=== PATIENT | female | born 1930 | race Caucasian/White ===

== ENCOUNTER 2019-07-10 07:55 | Emergency (ER) | payer MEDICARE, OTHER ==
[2019-07-10 08:36] LABS: #Basophils 0.1 thou/uL (0.0-0.2); #Eosinphils 0.3 thou/uL (0.0-0.7); #Lymphocytes 1.2 thou/uL (1.20-3.40); #Monocytes 0.8 thou/uL (0.11-0.59); #Neutrophils 8.5 thou/uL (1.40-6.50); %Basophils 1.1 % (0.0-1.0); %Eosinophils 2.5 % (0.0-10.0); %Lymphocytes 10.6 % (21.0-51.0); %Monocytes 7.2 % (0.0-10.0); %Neutrophils 78.7 % (42.0-75.0); Hemoglobin 13.5 g/dL (12.0-16.0); Mean Corpuscular HGB CONC 33.3 g/dL (32.0-36.0); Mean Corpuscular Hemoglobin 28.9 pg (27.0-31.0); Mean Corpuscular Volume 86.8 fL (78.0-98.0); Mean Platelet Volume 9.5 fL (7.4-10.4); Platelet Count 208 thou/uL (130-400); RBC Distribution Width 14.8 % (11.5-14.5); Red Blood Cell (RBC) Count 4.66 mill/uL (4.20-5.40); White Blood Cell (WBC) Count 10.8 thou/uL (4.8-10.8)
--- NOTE | 2019-07-10 08:51 | CT ---
CT head without contrast: Multiple axial tomograms obtained through the head without IV enhancement. INDICATIONS: Head injury. Fall. COMPARISON: None FINDINGS: Ventricles have normal size and position. Cortical atrophy and mild chronic ischemic white matter change. No evidence of intracranial mass, hemorrhage, edema, or infarct. Visualized sinuses and mastoids appear clear. Bony calvarium appears unremarkable. IMPRESSION: No acute finding
[2019-07-10 08:53] LABS: Bacteria/HPF 4+ HPF (None Seen); Bilirubin Negative (Negative); Blood, Urine Negative (Negative); Clarity Clear (Clear); Glucose, Urine (Dipstick) Normal (Negative); Leukocyte 75 Leu/uL (Negative); Nitrite Negative (Negative); Protein, Urine (Dipstick) 50 mg/dL (Neg-Trace); RBC/HPF 0-3 HPF (0-3); Squamous Epithelial 0-3 HPF (0-3); Triple Phosphate Crystal 1+ HPF (None Seen); Urobilinogen Normal mg/dL (Less than 2); WBC/HPF 21-50 HPF (0-3)
[2019-07-10 08:58] LABS: ALT (SGPT) 12 U/L (8-55); AST (SGOT) 16 U/L (5-34); Albumin 3.6 g/dL (3.4-4.8); Alkaline Phosphatase 58 U/L (40-110); Anion Gap 11 mmol/L (10-20); BUN (Urea Nitrogen) 11 mg/dL (9.8-20.1); Bilirubin, Total 0.8 mg/dL (0.2-1.2); Calc. Creatinine Clearance 0 mL/min (70-130); Calcium 9.1 mg/dL (7.8-10.44); Carbon Dioxide 31 mmol/L (23-31); Chloride 93 mmol/L (98-107); Estimated GFR-MDRD 65; Globulin 2.1 g/dL (2.4-3.5); Glucose 103 mg/dL (83-110); Potassium 3.3 mmol/L (3.5-5.1); Protein, Total 5.7 g/dL (6.0-8.3); Sodium 132 mmol/L (136-145)
[2019-07-10] MEDS ORDERED: Ondansetron ODT 4 MG TAB ONE (09:04)
== END 2019-07-10 10:03 ==
LOC: ERS 07:55
DX: S01.112A Laceration without foreign body of left eyelid and periocular area, initial encounter (principal); S01.132A Puncture wound without foreign body of left eyelid and periocular area, initial encounter; S05.12XA Contusion of eyeball and orbital tissues, left eye, initial encounter; N39.0 Urinary tract infection, site not specified; I49.9 Cardiac arrhythmia, unspecified; I48.91 Unspecified atrial fibrillation; E03.9 Hypothyroidism, unspecified; I10 Essential (primary) hypertension; G30.9 Alzheimer's disease, unspecified; F02.80 Dementia in other diseases classified elsewhere, unspecified severity, without behavioral disturbance, psychotic disturbance, mood disturbance, and anxiety; Z79.899 Other long term (current) drug therapy; W18.30XA Fall on same level, unspecified, initial encounter
CPT/HCPCS: 36415; 70450; 80053; 81003; 81015; 84484; 85025; 87077; 87086; 87186; 93005; Q0162

== ENCOUNTER 2020-03-13 11:17 | Emergency (ER) | payer MEDICARE, OTHER ==
--- NOTE | 2020-03-13 12:40 | CT ---
CT BRAIN: Date: 03/13/2020 PROVIDED CLINICAL HISTORY: Fall. COMPARISON: 07/10/2019. FINDINGS: The ventricular system appears normal in size and morphology. There is no evidence for intracranial h emorrhage or mass effect. The extracranial soft tissues and osseous structures demonstrate an unremar kable CT appearance. IMPRESSION: No evidence for intracranial hemorrhage or mass effect. POS: LORENZO
--- NOTE | 2020-03-13 12:57 | CT ---
CT CERVICAL SPINE: Date: 03/13/2020 PROVIDED CLINICAL HISTORY: Fall. FINDINGS: There is no evidence for fracture or traumatic subluxation. Cervical degenerative changes are seen. P artially visualized bilateral pleural fluid. No evidence for pneumothorax. Sub-6 mm noncalcified righ t upper lobe pulmonary nodule. Marked enlargement of the thyroid gland without focal nodule apparent. Vascular calcifications are seen. IMPRESSION: 1. No evidence for fracture or traumatic subluxation. 2. Partially visualized bilateral pleural fluid. POS: LORENZO
--- NOTE | 2020-03-13 13:35 | RAD ---
XR Ribs Lt>=2 View W/PA CXR History: Pain with fall Comparison: None. Findings: Heart size mildly enlarged. No pulmonary consolidation, pleural effusion or pneumothorax. Nondisplaced left anterior eighth rib fracture. Impression: Nondisplaced left anterior eighth rib fracture without pneumothorax or significant effusi on.
== END 2020-03-13 14:22 ==
LOC: ERS 11:17
DX: S22.32XA Fracture of one rib, left side, initial encounter for closed fracture (principal); I48.91 Unspecified atrial fibrillation; I10 Essential (primary) hypertension; E03.9 Hypothyroidism, unspecified; G30.9 Alzheimer's disease, unspecified; F02.81 Dementia in other diseases classified elsewhere, unspecified severity, with behavioral disturbance; Z79.899 Other long term (current) drug therapy; W18.30XA Fall on same level, unspecified, initial encounter
CPT/HCPCS: 70450; 72125

== ENCOUNTER → 2020-08-03 | Emergency (ER) | payer MEDICARE, OTHER ==
[~2020-08-03] MED LIST: Boostrix 0.5 ML (Tdap) VIAL ONE; Lidocaine 1% w/Epinephrine 1:100K 20 ML VIAL ONE
[2020-08-03 18:39] LABS: Hemoglobin 11.9 g/dL (12.0-16.0); Mean Corpuscular HGB CONC 33.3 g/dL (32.0-36.0); Mean Corpuscular Hemoglobin 28.9 pg (27.0-31.0); Mean Corpuscular Volume 86.9 fL (78.0-98.0); Mean Platelet Volume 11.1 fL (7.4-10.4); Platelet Count 144 thou/uL (130-400); RBC Distribution Width 15.3 % (11.5-14.5); White Blood Cell (WBC) Count 13.1 thou/uL (4.8-10.8)
[2020-08-03 18:44] LABS: INR-International Normal Ratio 3.6; PTT 49.5 sec (22.9-36.1); Prothrombin Time 36.3 sec (12.0-14.7)
--- NOTE | 2020-08-03 18:46 | CT ---
EXAM: CT brain without contrast HISTORY: Fall with head trauma COMPARISON: 03/13/2020, 07/10/2019 TECHNIQUE: Multiple contiguous axial images were obtained and a CT of the brain without contrast. FINDINGS: There are scattered hypodensities in the subcortical and periventricular white matter consi stent with small vessel ischemic disease. There is stable prominence of the lateral ventricles. There is no evidence of intracranial hemorrhage or extra-axial fluid collection. The calvarium and overlying soft tissues are unremarkable. The visualized paranasal sinuses and masto id air cells are well aerated. IMPRESSION: Stable prominence of the lateral ventricles may be secondary to hydrocephalus. No acute i ntracranial abnormality is appreciated.
--- NOTE | 2020-08-03 18:48 | CT ---
EXAM: CT of the cervical spine without contrast HISTORY: Fall with head trauma and neck pain COMPARISON: 03/13/2020 TECHNIQUE: Multiple contiguous axial images were obtained in a CT of the cervical spine without contr ast. Sagittal and coronal reformats were performed. FINDINGS: The vertebral bodies demonstrate normal height and alignment without fracture or subluxatio n. Moderate stable degenerative changes are seen throughout the cervical spine. No prevertebral soft tissue swelling is seen. The posterior facets are well aligned. Normal alignment of the skull base with the cervical spine is seen. There appears to be a small right pleural effusion. Calcifications are seen in the carotid arteries. IMPRESSION: No evidence of acute osseous abnormality of the cervical spine.
[2020-08-03 18:58] LABS: Anisocytosis SLIGHT = 6-15 cells (100X) (0-5/hpf); Band 2 % (5-11); Elliptocytes SLIGHT = 2-5 cells (100X) (0-1/hpf); Lymphocytes 8 % (21-51); MDiff Complete? YES; Monocytes 4 % (0-10); Neutrophil 85 % (42-75); Platelet Morphology Comment Appears Adequate; Poikilocytosis MODERATE=16-30 cells (100X) (0-5/hpf); Schistocytes SLIGHT = 2-5 cells (100X) (0-1/hpf)
[2020-08-03 19:00] LABS: ALT (SGPT) 10 U/L (8-55); AST (SGOT) 20 U/L (5-34); Albumin 3.3 g/dL (3.4-4.8); Alkaline Phosphatase 61 U/L (40-110); Anion Gap 17 mmol/L (10-20); BUN (Urea Nitrogen) 24 mg/dL (9.8-20.1); Bilirubin, Total 0.6 mg/dL (0.2-1.2); Calc. Creatinine Clearance 0 mL/min (70-130); Carbon Dioxide 25 mmol/L (23-31); Chloride 99 mmol/L (98-107); Globulin 2.7 g/dL (2.4-3.5); Glucose 113 mg/dL (83-110); Potassium 3.7 mmol/L (3.5-5.1); Sodium 137 mmol/L (136-145)
--- NOTE | 2020-08-03 19:02 | CT ---
EXAM: CT of the lumbar spine without contrast HISTORY: Low back pain after fall COMPARISON: None TECHNIQUE: Multiple contiguous axial images were obtained in a CT of the lumbar spine without contras t. Sagittal and coronal reformats were performed. FINDINGS: There is diffuse osteopenia. The vertebral bodies demonstrate normal height and alignment without fracture or subluxation. . Moderate degenerative changes are seen throughout the lumbar spine. There is intervertebral disc space narrowing of the upper lumbar intervertebral discs with fito rounding osteophyte formation and moderate posterior facet arthrosis in the lower lumbosacral spine. There is a small right pleural effusion. Atherosclerotic calcifications are seen in the aorta. A 3.4 cm cyst is seen in the left kidney. There is hyperplasia of the left adrenal gland. Hyperdensity is seen in the gallbladder which may represent contrast from previous contrast examination or sludge. . The paraspinal soft tissues are unremarkable. IMPRESSION: 1. Moderate degenerative changes without evidence of acute osseous abnormality of the lumbar spine. 2. Small right pleural effusion
--- NOTE | 2020-08-03 19:20 | CT ---
CT THORACIC SPINE: 08/03/20 PROVIDED CLINICAL HISTORY: Back pain status post fall. FINDINGS: Thoracic alignment appears normal. Vertebral body heights are preserved. Multilevel thoracic disc deg enerative changes are seen. There is partially visualized right pleural fluid as well as several patc hy foci of somewhat nodular parenchymal opacity involving the visualized right lung. Prominent athero sclerotic vascular calcifications are seen. IMPRESSION: 1. No evidence for fracture. 2. Partially visualized patchy parenchymal opacities and right pleural fluid. Correlate with con cerns for pneumonia. POS: LORENZO
--- NOTE | 2020-08-03 19:28 | RAD ---
LEFT ELBOW RADIOGRAPHS FOUR VIEWS: 08/03/20 PROVIDED CLINICAL HISTORY: Fall. FINDINGS: There is no evidence for fracture or other acute osseous abnormality. If there is persistent clinical concern, conservative management and follow-up imaging are advised. IMPRESSION: As above. POS: LORENZO
--- NOTE | 2020-08-03 19:29 | RAD ---
EXAM: 2 views of the left shoulder HISTORY: Shoulder pain after fall COMPARISON: None FINDINGS: There is no evidence of acute fracture or dislocation. Moderate to severe degenerative moore ges are seen in the acromioclavicular joint. Atherosclerotic calcifications are seen in the aorta. The visualized thorax is unremarkable. IMPRESSION: Moderate to severe AC degenerative change without acute osseous abnormality.
--- NOTE | 2020-08-03 19:29 | RAD ---
PELVIC RADIOGRAPH: 08/03/20 PROVIDED CLINICAL HISTORY: Fall. FINDINGS: There is no evidence for fracture or other acute osseous abnormality. If there is persistent clinical concern, conservative management and follow-up imaging are advised. IMPRESSION: As above. POS: LORENZO
--- NOTE | 2020-08-03 19:31 | RAD ---
RIGHT ELBOW RADIOGRAPHS FOUR VIEWS: 08/03/20 PROVIDED CLINICAL HISTORY: Fall. FINDINGS: On the oblique projection, there is an area of apparent cortical discontinuity involving the lateral aspect of the radial head suspicious for a nondisplaced radial head fracture. This is not definitely supported on the additional views. No elbow joint effusion is evident. Alignment appears anatomic. IMPRESSION: Findings equivocal for nondisplaced radial head fracture. POS: LORENZO
== END ==
LOC: ERS 17:25
DX: S01.112A Laceration without foreign body of left eyelid and periocular area, initial encounter (principal); S52.124A Nondisplaced fracture of head of right radius, initial encounter for closed fracture; R79.1 Abnormal coagulation profile; Z79.01 Long term (current) use of anticoagulants; W18.2XXA Fall in (into) shower or empty bathtub, initial encounter
CPT/HCPCS: 12011; 29125; 36415; 70450; 72125; 72128; 72131; 72170; 80053; 85025; 85610; 85730; 90471; 90715; 93005

== ENCOUNTER 2020-08-07 14:04 | Inpatient (IN) | payer MEDICARE, OTHER ==
[~2020-08-07 14:04] MED LIST changes: -Boostrix 0.5 ML (Tdap) VIAL ONE; +Iopamidol-370 76% 500 ML 1 ML ONE; -Lidocaine 1% w/Epinephrine 1:100K 20 ML VIAL ONE
[2020-08-07 14:53] LABS: Hemoglobin 12.6 g/dL (12.0-16.0); Mean Corpuscular HGB CONC 33.2 g/dL (32.0-36.0); Mean Corpuscular Hemoglobin 29.5 pg (27.0-31.0); Mean Corpuscular Volume 88.9 fL (78.0-98.0); Mean Platelet Volume 11.1 fL (7.4-10.4); Platelet Count 190 thou/uL (130-400); Red Blood Cell (RBC) Count 4.28 mill/uL (4.20-5.40); White Blood Cell (WBC) Count 17.2 thou/uL (4.8-10.8)
[2020-08-07 15:06] LABS: Lymphocytes 8 % (21-51); MDiff Complete? YES; Monocytes 5 % (0-10); Neutrophil 87 % (42-75)
[2020-08-07 15:07] LABS: Anisocytosis SLIGHT = 6-15 cells (100X) (0-5/hpf); Large Platelets SLIGHT; Ovalocytes SLIGHT = 2-5 cells (100X) (0-1/hpf); Platelet Morphology Comment Appears Adequate; Polychromasia SLIGHT = 2-3 cells (100X) (0-2/hpf)
[2020-08-07 15:12] LABS: ALT (SGPT) 15 U/L (8-55); AST (SGOT) 16 U/L (5-34); Albumin 3.4 g/dL (3.4-4.8); Alkaline Phosphatase 76 U/L (40-110); Anion Gap 15 mmol/L (10-20); BUN (Urea Nitrogen) 41 mg/dL (9.8-20.1); Bilirubin, Total 0.8 mg/dL (0.2-1.2); Calc. Creatinine Clearance 0 mL/min (70-130); Calcium 9.5 mg/dL (7.8-10.44); Carbon Dioxide 30 mmol/L (23-31); Chloride 102 mmol/L (98-107); Globulin 3.2 g/dL (2.4-3.5); Glucose 163 mg/dL (83-110); Potassium 3.7 mmol/L (3.5-5.1); Protein, Total 6.6 g/dL (6.0-8.3); Sodium 143 mmol/L (136-145)
--- NOTE | 2020-08-07 15:24 | CT ---
CT Brain WO Con: 08/07/2020 2:55 PM CLINICAL HISTORY: Altered mental status. IMAGING TECHNIQUE: Multiple CT images were obtained of the brain without IV contrast. COMPARISON: 2019 FINDINGS: BRAIN: Evidence of acute infarct: None. Evidence of chronic ischemic change:Stable moderate chronic small vessel white matter ischemic change . Evidence of intracranial hemorrhage: None. Evidence of brain volume loss:Diffuse cerebral and cerebellar atrophy appears similar. Evidence of midline shift: Third ventricle and septum pellucidum are midline. Ventricles: Normal. No hydrocephalus. SKULL: There is a left supraorbital soft tissue contusion. This appears slightly less prominent than on the prior VISUALIZED PARANASAL SINUSES: Clear. MASTOID AIR CELLS: Clear. EXTRACRANIAL SOFT TISSUES: Normal. IMPRESSION: No acute intracranial abnormality.
--- NOTE | 2020-08-07 15:31 | CT ---
CTA Angio Chest W WO Con 08/07/2020 2:57 PM Indication: History of upper back pain status post fall with dyspnea and hypoxia Technique: Multiple CTA images were obtained of the thorax with IV contrast. 3-D rendering: MIP mary nstructed images were created and reviewed. Comparison: CT of the thoracic spine without contrast dated 08/03/2020 Findings: Pulmonary arteries: No central or segmental pulmonary embolus is evident. Heart and Aorta: Prominent coronary artery and thoracic aortic calcifications. Moderate cardiomegaly Mediastinum:Normal appearing. No enlarged lymph nodes. Lungs:There is patchy opacities remaining within the right lobe suspicious for pneumonia or aspiratio n. Pleural space: There are moderate bilateral pleural effusions. There is a moderate left-sided pneumo thorax. Upper Abdomen: There is hypertrophy of both adrenal glands. Osseous Structures: There is diffuse osteopenia. There has been interval development of mildly displ aced posterior left eighth through 11th rib fractures. There is scattered degenerative and osteoarthritic change present. Soft tissues:No abnormality. Other findings:None. Impression: 1. No central or segmental pulmonary embolus. 2. New moderate left sided hydropneumothorax. Multiple mildly displaced posterior left eighth through 11th rib fracture 3. Persistent parenchymal opacities of the right lower lobe may reflect pneumonia or aspiration. Ther e is a persistent moderate right-sided pleural effusion. 4. Findings called to Dr. Hardin at 3:25 PM on August 07, 2020.
[2020-08-07] MEDS ORDERED: Fentanyl 100 MCG/2 ML VIAL ONE (15:36)
[2020-08-07] MEDS ORDERED: Lidocaine 1% (PF) 30 ML VIAL ONE (15:58)
--- NOTE | 2020-08-07 16:00 | RAD ---
RADIOGRAPH CHEST 1 VIEW: DATE: 08/07/2020 TIME: 3:29 PM HISTORY: 89-year-old female with dyspnea COMPARISON: 12/04/2016 FINDINGS: New moderate sized left pneumothorax. New small bilateral pleural effusions, left greater than right. New airspace opacity at left base, probably atelectasis. New diffuse prominent interstitial markings. IMPRESSION: 1) left hydropneumothorax. 2) smaller right pleural effusion
[2020-08-07 16:02] LABS: Bilirubin Negative (Negative); Blood, Urine Moderate (Negative); Clarity Turbid (Clear); Glucose, Urine (Dipstick) Negative (Negative); Ketone, Urine Trace mg/dL (Negative); Leukocyte Moderate (Negative); Nitrite Negative (Negative); Protein, Urine (Dipstick) > or equal to 300 mg/dL (Neg-Trace); Urobilinogen 0.2 mg/dL (Less than 2)
[2020-08-07 16:03] LABS: Specific Gravity, Urine 1.019 (1.002-1.036)
[2020-08-07 16:09] LABS: Bacteria/HPF 4+ HPF (None Seen); Squamous Epithelial 0-3 HPF (0-3); WBC/HPF Greater Than 50 HPF (0-3)
--- NOTE | 2020-08-07 16:49 | RAD ---
RADIOGRAPH CHEST 1 VIEW: DATE: 08/07/2020 TIME: 4:37 PM HISTORY: 89-year-old female follow-up pneumothorax COMPARISON: 08/07/2020 3:29 PM FINDINGS: There is a new transversely oriented left basilar chest tube. The previously demonstrated moderate size left pneumothorax is now a tiny left apical pneumothorax, l ess than 5% volume. Bilateral small pleural effusions. The left pleural effusion has decrease in volume. No large consolidation. Mild cardiomegaly. IMPRESSION: upon placement of left-sided chest tube, the left hydropneumothorax has significantly decreased.
[2020-08-07] MEDS ORDERED: hydrALAZINE 20 MG/ML VIAL SLOW IVP PRN (20:49)
[2020-08-07] MEDS ORDERED: Insulin Regular 300 UNITS/3 ML VIAL SC PRN ×2 (20:49)
[2020-08-07] MEDS ORDERED: Dextrose 5% in Water 1,000 ML IV PRN (20:49)
[2020-08-07] MEDS ORDERED: Cyclobenzaprine 10 MG TAB PO PRN (20:49)
[2020-08-07] MEDS ORDERED: Ondansetron ODT 4 MG TAB PO PRN (20:49)
[2020-08-07] MEDS ORDERED: Dextrose 50% Abboject 50 ML SYRINGE SLOW IVP PRN (20:49)
[2020-08-07] MEDS ORDERED: traMADol HCl 50 MG TAB PO PRN ×2 (20:49)
[2020-08-07] MEDS ORDERED: Morphine 2 MG/ML VIAL SLOW IVP PRN (20:49)
[2020-08-07] MEDS ORDERED: cefTRIAXone\\ROCEPHIN 1 GM in Sodium Chloride 0.9% 100 ML IVPB SCH (20:49)
[2020-08-07] MEDS ORDERED: Ondansetron PF 4 MG/2 ML Vial IVP PRN (20:49)
[2020-08-07] MEDS ORDERED: Furosemide 20 MG/2 ML VIAL SLOW IVP SCH (21:15)
[2020-08-07] MEDS: Famotidine 20 MG TAB PO SCH (21:33)
--- NOTE | 2020-08-07 22:17 | HP ---
REQUESTING PHYSICIAN: Dr. Hardin. ATTENDING SURGEON: Dr. Degroot. CONSULTATIONS: None. SUMMARY: The patient is an 89-year-old woman who resides in a Memory Care Unit at [facility]. She reportedly has had multiple falls recently. She was seen last week, where she underwent evaluation and examination and was returned home. Tonight, she returned with reported hypoxia and shortness of breath with an oxygen saturation of 88 on room air. She was brought to the emergency department where she underwent evaluation and examination, was noted to have a moderate-sized left hemopneumothorax and had a chest tube placed by the emergency room physician and then we were consulted to evaluate for admission. The patient is a poor historian. Her best baseline is A and O x1. Her nephew showed up. He was able to assist a slight bit and was able to put me in contact with her who unfortunately also lives in assisted living, albeit not in the Memory Care Facility. did confirm that the patient would not want to be intubated if that was needed and she was also DNR. This was also verified with her report from the residential. ALLERGIES: KEFLEX, ERYTHROMYCIN, PENICILLIN, AND SULFA. CURRENT MEDICATIONS: 1. Digoxin. 2. HCTZ. 3. Latanoprost. 4. Metoprolol succinate. 5. Tramadol. 6. Xanax. 7. Xarelto. 8. Tylenol No. 3. 9. MiraLAX. 10. Bacitracin. PAST MEDICAL HISTORY: Atrial fibrillation, glaucoma, macular degeneration, hypothyroidism, hypertension, aortic valve disorder, Alzheimer/dementia. PAST SURGICAL HISTORY: Hysterectomy. SOCIAL HISTORY: Again, the patient is a resident of the [facility]. There is no reported history of drug tobacco or alcohol use. REVIEW OF SYSTEMS: A 10-point review of systems is negative as otherwise stated. PHYSICAL EXAMINATION: VITAL SIGNS: Blood pressure 138/86, heart rate 100, respirations 17, oxygen saturation is 100% on 2 L via nasal cannula, and temperature is 97.9. GENERAL: The patient is resting comfortably in bed. She would open her eyes to verbal stimuli. She did not answer any of my questions. She did make some sounds during my exam, but they were incomprehensible. She did not follow commands but did withdraw to pain. Her Syd Coma Scale of 11 at E4, V2, M5. The nephew reports that this appears to be her baseline. HEENT: Head is normocephalic with contusions noted to left greater than right periorbital area with a small healing laceration to the left supraorbital area. Eyes, PERRLA bilaterally. The patient does not follow for extraocular motion. Nose, a small amount of dry blood is noted in the left naris. Ears are atraumatic with discharge. Oropharynx is clear. NECK: Nontender. Trachea is midline. No JVD. CHEST: Clear to auscultation with moderate inspiratory and expiratory effort. Left chest tube in place connected to wall suction, does not appear to show an air leak. HEART: Irregularly irregular consistent with her atrial fibrillation. ABDOMEN: Soft, flat with active bowel sounds. PELVIS: Stable. EXTREMITIES: Neurovascularly intact x4. BACK: By report is atraumatic and nontender. LABORATORY FINDINGS: White blood cell count 17.2, hemoglobin 12.6, hematocrit 38.0, platelets 190. Sodium 143, potassium 3.7, chloride 102, CO2 of 20, BUN 41, creatinine 1.18, glucose 163. Lactic acid 1.7. LFTs are unremarkable. Troponin 0.018. BNP is 948. Urinalysis shows tkt-[id number]-count wbc's, 4+ bacteria, positive leukocyte esterase. RADIOGRAPHIC FINDINGS: AP chest x-ray shows a left hydropneumothorax and a smaller right pleural effusion. Repeat chest x-ray shows placement of left-sided chest tube. CT of the brain without contrast shows no acute intercranial abnormality. CTA of the chest shows no central or segmental pulmonary embolus. There is a new moderate left-sided hydropneumothorax, multiple mildly displaced posterior left 8 through 11 rib fractures. ASSESSMENT/PLAN: 1. Status post fall with questionable delayed presentation due to multiple previous falls. 2. Left hydropneumothorax. 3. Elevated BNP. 4. Urinary tract infection, present on admission. 5. History of hypothyroidism. PLAN: Plan will be to admit the patient to the surgical floor. Continue suction to chest tube overnight. Repeat chest x-ray in the morning. Repeat lab work in the morning. We will monitor closely for signs of CHF and we will diurese accordingly. Begin antibiotics with IV Cipro at this time until culture results return. We will consult Physical and Occupational Therapy and Palliative Care. The evaluation, examination, laboratory, and radiographic findings were discussed with Dr. Degroot prior to this dictation. Job ID: [id number]
[2020-08-07] MEDS: Acetaminophen 325 MG TAB PO SCH (23:44)
[2020-08-08 01:25] VITALS: BMI 15.5
[2020-08-08 04:22] LABS: SARS-CoV-2 MS2 Positive; SARS-CoV-2 N Gene Negative; SARS-CoV-2 S Gene Negative; SARS-CoV-2 by NAA Not Detected (NotDetected); SARS-CoV-2 orf1ab Negative
[2020-08-08] MEDS ORDERED: Digoxin 0.5 MG/2 ML AMP SLOW IVP SCH (05:30)
[2020-08-08 05:44] LABS: Anion Gap 17 mmol/L (10-20); BUN (Urea Nitrogen) 46 mg/dL (9.8-20.1); Calc. Creatinine Clearance 20 mL/min (70-130); Carbon Dioxide 25 mmol/L (23-31); Chloride 101 mmol/L (98-107); Glucose 123 mg/dL (83-110); Magnesium 1.9 mg/dL (1.6-2.6); Phosphorus 3.1 mg/dL (2.3-4.7); Potassium 3.4 mmol/L (3.5-5.1); Sodium 140 mmol/L (136-145)
[2020-08-08 06:04] LABS: Band 2 % (5-11); Hemoglobin 10.7 g/dL (12.0-16.0); Lymphocytes 7 % (21-51); MDiff Complete? YES; Mean Corpuscular HGB CONC 31.9 g/dL (32.0-36.0); Mean Corpuscular Hemoglobin 28.4 pg (27.0-31.0); Mean Corpuscular Volume 88.8 fL (78.0-98.0); Mean Platelet Volume 10.9 fL (7.4-10.4); Monocytes 5 % (0-10); Neutrophil 86 % (42-75); Platelet Count 187 thou/uL (130-400); Platelet Morphology Comment Appears Adequate; RBC Distribution Width 15.9 % (11.5-14.5); Red Blood Cell (RBC) Count 3.79 mill/uL (4.20-5.40); White Blood Cell (WBC) Count 14.5 thou/uL (4.8-10.8)
[2020-08-08] MEDS: Acetaminophen 325 MG TAB PO SCH ×4 (06:22→23:55)
--- NOTE | 2020-08-08 08:06 | RAD ---
EXAM: Single view of the chest HISTORY: Chest tube for left pneumothorax COMPARISON: 08/07/2020 FINDINGS: Single view of the chest shows an enlarged but stable cardiomediastinal silhouette. Athero sclerotic calcifications are seen in the aorta. A left-sided chest tube is again seen. There is a tiny left apical pneumothorax. Increased interstitial markings are present. There appears to be a sma ll left pleural effusion. No acute osseous abnormality. IMPRESSION: Stable exam
[2020-08-08] MEDS: Hydrochlorothiazide 25 MG TAB PO SCH (09:10)
[2020-08-08] MEDS: Digoxin 0.125 MG TAB PO SCH (09:10)
[2020-08-08] MEDS: Famotidine 20 MG TAB PO SCH ×2 (09:10→22:10)
--- NOTE | 2020-08-08 17:52 | PRG ---
DATE OF SERVICE: 08/08/2020 SUBJECTIVE: Ms. Menon is an 89-year-old woman who is postinjury day #1, status post ground-level fall. The patient sustained a left hemopneumothorax, which required tube thoracostomy. This morning, she remains at baseline aphasic with a Syd Coma Scale of E4, M5-6, V2-3. Urinary output is adequate for this patient's age and weight. OBJECTIVE: VITAL SIGNS: Today include blood pressure 130/57, pulse 107 and irregular, respiratory rate is 20, maximum temperature since admission 97.6 degrees Fahrenheit, and oxygen saturation 96% on room air. HEENT: Pupils equally round and reactive to light and accommodation. HEART: Irregular rate and irregular rhythm. LUNGS: Clear to auscultation bilaterally. Breathing regular and nonlabored. Chest tube is in place. No air leak present on the left chest tube. ABDOMEN: Soft, nontender, and nondistended. NEUROLOGIC: No focal deficits present. The patient has a history of senile dementia of Alzheimer's type. DIAGNOSTIC STUDIES: Chest x-ray today reveals a tiny residual left apical pneumothorax. LABORATORY FINDINGS: A CBC with 14,500 white blood cells, hemoglobin and hematocrit stable at 10.7 and 33.6 respectively, and platelet count 187,000. Metabolic profile: Sodium 140, potassium 3.4, chloride is 101, bicarb is 25, BUN is 46, creatinine is 1.15, and glucose 123. BNP 595.7. Magnesium and phosphorus 1.9 and 3.1 respectively. IMPRESSIONS: 1. Postinjury day #1 status post ground-level fall. 2. Left hemopneumothorax, resolving. 3. Acute hypokalemia. 4. Acute hypomagnesemia. PLAN: 1. Continue with the tube thoracostomy on suction and place to water seal later today. Repeat chest x-ray tomorrow and consider removal if no recurrent pneumothorax. 2. Correct abnormal electrolytes. Above findings and plan discussed with family who had requested the patient be placed in hospice care. Once pneumothorax resolved, the patient will be transferred to hospice care to this, Palliative Care will be consulted. Job ID: [id number]
--- NOTE | 2020-08-08 23:12 | EKG ---
Test Reason : Blood Pressure : / mmHG Vent. Rate : 118 BPM Atrial Rate : 102 BPM P-R Int : 000 ms QRS Dur : 082 ms QT Int : 262 ms P-R-T Axes : 000 044 222 degrees QTc Int : 367 ms Atrial fibrillation with rapid ventricular response T wave abnormality, consider inferior ischemia Abnormal ECG When compared with ECG of 07-AUG-2020 14:24, (Unconfirmed) Nonspecific T wave abnormality, improved in Anterior leads Confirmed by Oleg LARIOS ([id number]) on 08/08/2020 11:12:19 PM Referred By: TASHIA Confirmed By:Oleg LARIOS
[2020-08-08] MEDS ORDERED: Lorazepam 2 MG/ML VIAL SLOW IVP SCH (23:59)
[2020-08-09] MEDS: Acetaminophen 325 MG TAB PO SCH ×3 (06:04→17:53)
--- NOTE | 2020-08-09 07:41 | RAD ---
EXAM: Single view of the chest HISTORY: Left pneumothorax status post chest tube COMPARISON: 08/08/2020 FINDINGS: Single view of the chest shows an enlarged but stable cardiomediastinal silhouette. Athero sclerotic calcifications are seen in the aorta. There is a left-sided chest tube with a tiny left apical pneumothorax. There is a small left pleural effusion. Degenerative changes are seen in the spi ne. IMPRESSION: Stable exam
[2020-08-09] MEDS: Digoxin 0.125 MG TAB PO SCH (09:16)
[2020-08-09] MEDS: Famotidine 20 MG TAB PO SCH ×2 (09:16→20:02)
[2020-08-09] MEDS: Hydrochlorothiazide 25 MG TAB PO SCH (09:16)
--- NOTE | 2020-08-09 09:55 | RAD ---
Portable frontal chest radiograph: 08/09/2020 COMPARISON: 08/09/2020 HISTORY: Reevaluate left-sided pneumothorax FINDINGS: This study is performed at 9:39 AM and compared to the 7:16 AM study. There is a tiny pneum othorax in the left lung apex which appears similar when compared to the prior study. There is persistent opacity in the left base suggesting a combination of volume loss and infiltrate within the left lower lobe. A left-sided chest tube has been removed. Right lung is relatively clear. No right-sided pneumothorax. Heart and mediastinal contours are stable. There is atherosclerotic calcification of the aortic arch. IMPRESSION: Tiny pneumothorax in the left lung apex. Interval removal of left chest tube. Persistent density in the left base, nonspecific, for which follow-up is advised.
--- NOTE | 2020-08-09 14:48 | RAD ---
PORTABLE CHEST: 08/09/20 HISTORY: Removal of chest tube. COMPARISON: 08/09/20 at 9:30 a.m. Tiny left apical pneumothorax is unchanged. Opacification in the left lung base consistent with effus ion and left basilar atelectasis and/or infiltrate is unchanged. Small right effusion unchanged. IMPRESSION: Stable chest from film earlier today. POS: AGW
[2020-08-09] MEDS ORDERED: cefTRIAXone\\ROCEPHIN 1 GM in Sodium Chloride 0.9% 100 ML IVPB SCH (21:00)
[2020-08-09] MEDS: Latanoprost 0.005% Ophth Soln 2.5 ml Bottle EA EYE SCH (21:17)
[2020-08-10] MEDS: Acetaminophen 325 MG TAB PO SCH ×4 (00:29→17:11)
--- NOTE | 2020-08-10 03:45 | PRG ---
DATE OF SERVICE: 08/09/2020 SUBJECTIVE: The patient was seen this evening during rounds. She was lying in bed, resting comfortably and asleep with no signs of acute distress. Nursing reported no acute events. OBJECTIVE: VITAL SIGNS: Temperature 97.3, pulse 80, respirations 16, oxygen saturation 97% on room air, and blood pressure 115/59. ASSESSMENT: 1. Status post multiple falls. 2. Left hemopneumothorax, status post chest tube. 3. Right pleural effusion. 4. Left-sided ribs 8 through 11 fractures. 5. Urinary tract infection, uncomplicated. 6. Acute kidney injury, improved. 7. History of atrial fibrillation, Alzheimer dementia, hypertension, aortic valve disease, and hypothyroidism. PLAN: Continue current diet and pain regimen. Continue physical and occupational therapy. The patient previously on Xarelto. We will ask Day Trauma Team to possibly restart that tomorrow. The patient's culture and sensitivities demonstrated bacteria were not sensitive to Cipro as the patient had previously received. The patient is sensitive to Rocephin, she will receive one dose this evening. Bactrim was not chosen as there is an interaction with her home digoxin to cause elevated levels of digoxin. Job ID: [id number] [facility]
--- NOTE | 2020-08-10 06:03 | PRG ---
DATE OF SERVICE: 08/09/2020 SUBJECTIVE: The patient was seen on the telemetry floor, awake, alert, and pleasantly confused. The patient had no overnight events. The patient is hospital day #2, status post multiple recent falls. The patient had a chest tube placed to water-seal yesterday. The patient has no leak. The patient sustained a left hemopneumothorax. The patient's chest tube was removed and an occlusive dressing was placed. OBJECTIVE: VITAL SIGNS: Temperature 98.2, pulse 78, respirations 16, SpO2 of 98% on room air, blood pressure 120/60. GENERAL: Elderly female, awake, alert, in no distress. HEENT: Unremarkable. CARDIAC: Irregularly irregular rate. RESPIRATORY: Good inspiratory and expiratory effort, respirations are even and nonlabored, no air leak to left chest tube. ABDOMEN: Soft, nontender, nondistended. NEUROLOGIC: Pleasantly confused, follows commands. DIAGNOSTIC DATA: 1. Chest x-ray, impression, stable small left pleural effusion, left-sided chest tube with tiny left apical pneumothorax. 2. Repeat chest x-ray 4 hours after removal of chest tube, impression, tiny left apical pneumothorax is unchanged. Left effusion. 3. No new labs to evaluate today. ASSESSMENT: 1. Post injury day #2, status post ground level fall. 2. Left hemopneumothorax, stable. PLAN: Initially, the patient's family wanted the patient on hospice, but recently, the patient's nurse states the no longer wants her on hospice at this time. We will continue pain regimen and supportive care. The patient will likely go back to her Memory Care Unit at [place] tomorrow. Job ID: [id number]
[2020-08-10] MEDS: Digoxin 0.125 MG TAB PO SCH (08:48)
[2020-08-10] MEDS: Famotidine 20 MG TAB PO SCH ×2 (08:48→20:37)
[2020-08-10] MEDS: Hydrochlorothiazide 25 MG TAB PO SCH (08:48)
--- NOTE | 2020-08-10 13:13 | PQF ---
CLINICAL DOCUMENTATION CLARIFICATION FORM: Dear ANA Ortiz [facility] Date: 07/31/2020 Please exercise your independent, professional judgment in responding to the clarification form. Clinical indicators are provided on the bottom of this form for your review. Please check appropriate box(es): [ ] Acute Respiratory Failure: [ ] with Hypoxia [ ] with Hypercapnia [ ] Acute On Chronic Respiratory Failure: [ ] with Hypoxia [ ] with Hypercapnia [ ] Acute Respiratory Failure due to: (etiology) [ ] Chronic Respiratory Failure only [ ] with Hypoxia [ ] with Hypercapnia [ ] Respiratory Insufficiency [ x ] Hypoxia [ ] Other diagnosis [ ] Unable to determine In addition, please specify: Present on Admission (POA): [ x] Yes [ ] No [ ] Unable to determine For continuity of documentation, please document condition throughout progress notes and discharge summary. Thank You. To be completed by CDI/Coding staff for physician review: CLINICAL INDICATORS - SIGNS / SYMPTOMS / LABS / RESULTS AND LOCATION IN MR *ER Record 08/07: HPI: She is hypoxic around 88 on room air. VS @ 1530: Resp. 19, Pulse 115, O2 sat 93 on 2L Oxygen VS @ 1615: Resp. 14, Pulse 107, O2 sat 100 on 2L Oxygen Dx: Traumatic hemopneumothorax Additional: Hypoxia, Multiple rib fractures, Pneumonia, UTI *H&P 08/07 (Leon) Summary: Tonight she returned with reported hypoxia and SOB and an oxygen saturation of 88 on room air. Radiographic findings: AP chest xry shows left hydropneumothorax and a smaller right pleural effusion. RISK FACTORS / RESULTS AND LOCATION IN MR *H&P 08/07 (Tk) Summary: 89 yr old woman resides in Memory Care Unit, reportedly has had multiple falls recently. A/P: Left hydropneumothorax TREATMENTS / RESULTS AND LOCATION IN MR *H&P 08/07 (Leon) Summary: had a chest tube placed by the ER physician Plan: Continue suction to chest tube overnight. Repeat chest x-ray in morning. We will monitor closely for signs of CHF and will diurese accordingly. *Order 08/07: Resp. O2 to keep sats 92% *MAR: 08/07 Duoneb TID RT Thank you, Freda Luo RN, [email or web address] This is a permanent part of the Medical Record [facility]
[2020-08-10 14:34] LABS: #Basophils 0.1 thou/uL (0.0-0.2); #Eosinphils 0.2 thou/uL (0.0-0.7); #Lymphocytes 1.2 thou/uL (1.20-3.40); #Monocytes 0.6 thou/uL (0.11-0.59); %Basophils 0.8 % (0.0-1.0); %Eosinophils 2.3 % (0.0-10.0); %Lymphocytes 13.1 % (21.0-51.0); %Monocytes 6.3 % (0.0-10.0); %Neutrophils 77.5 % (42.0-75.0); Hemoglobin 11.8 g/dL (12.0-16.0); Mean Corpuscular HGB CONC 32.5 g/dL (32.0-36.0); Mean Corpuscular Hemoglobin 28.7 pg (27.0-31.0); Mean Corpuscular Volume 88.4 fL (78.0-98.0); Mean Platelet Volume 10.6 fL (7.4-10.4); Platelet Count 216 thou/uL (130-400); RBC Distribution Width 15.6 % (11.5-14.5); Red Blood Cell (RBC) Count 4.12 mill/uL (4.20-5.40); White Blood Cell (WBC) Count 9.1 thou/uL (4.8-10.8)
[2020-08-10 14:54] LABS: Anion Gap 12 mmol/L (10-20); BUN (Urea Nitrogen) 46 mg/dL (9.8-20.1); Calc. Creatinine Clearance 19 mL/min (70-130); Calcium 8.8 mg/dL (7.8-10.44); Carbon Dioxide 29 mmol/L (23-31); Chloride 98 mmol/L (98-107); Glucose 114 mg/dL (83-110); Potassium 3.1 mmol/L (3.5-5.1); Sodium 136 mmol/L (136-145)
--- NOTE | 2020-08-10 16:39 | PRG ---
DATE OF SERVICE: 08/10/2020 SUBJECTIVE: The patient was seen on the telemetry floor, resting comfortably in no distress. The patient had no overnight events. The patient arouses easily and is pleasantly confused at her baseline. The patient is hospital day #3, status post multiple recent falls. The patient's chest x-ray was reviewed by Dr. Palacios this morning, which showed no pneumothorax. The patient's family has decided that they want to hold off on hospice care at this time. The patient is tolerating a diet and denies any pain. OBJECTIVE: VITAL SIGNS: Temperature 96.9, pulse 75, respirations 17, SpO2 of 95% on room air, and blood pressure 132/63. GENERAL: Elderly female, awake, alert, in no distress. HEENT: Bruising to forehead. Mucous membranes slightly dry. CARDIAC: Irregularly irregular, no pedal edema. RESPIRATORY: Good inspiratory and expiratory effort, bilateral breath sounds clear. ABDOMEN: Soft, nondistended. NEUROLOGIC: Pleasantly confused, follows commands, GCS 14. LABORATORY DATA: WBC 9.1, RBC 4.12, hemoglobin 11.8, hematocrit 36.4, and platelets 216. Sodium 136, potassium 3.1, chloride 98, BUN 46, creatinine 1.21, estimated GFR 42, and glucose 114. DIAGNOSTICS: No new diagnostics to review. ASSESSMENT: 1. Post injury day #3, status post ground level fall. 2. Left hemopneumothorax, stable. 3. Hypokalemia. 4. Hypoxia, resolved. 5. Acute on chronic kidney injury. PLAN: Continue supportive care and pain regimen. The patient's family requests the patient go to [facility] until they determine if they want her to be on hospice or not. Replace electrolytes. Pulmonary toilet. PT/OT. Job ID: [id number]
[2020-08-10] MEDS ORDERED: Potassium Chloride 20 MEQ TAB PO SCH (17:30)
[2020-08-10] MEDS ORDERED: cefTRIAXone\\ROCEPHIN 1 GM in Sodium Chloride 0.9% 100 ML IVPB SCH (20:00)
[2020-08-10] MEDS: Latanoprost 0.005% Ophth Soln 2.5 ml Bottle EA EYE SCH (20:36)
[2020-08-11] MEDS: Acetaminophen 325 MG TAB PO SCH ×4 (01:13→12:27)
--- NOTE | 2020-08-11 02:06 | PRG ---
DATE OF SERVICE: 08/10/2020 SUBJECTIVE: The patient was seen this evening during rounds. She was lying in bed, resting comfortably and asleep with no signs of acute distress. Nursing reported no acute events. OBJECTIVE: VITAL SIGNS: Temperature 97.5, pulse 101, respirations 20, oxygen saturation 97% on room air, blood pressure 119/68. ASSESSMENT: 1. Status post multiple falls, on Xarelto. 2. Left hemopneumothorax, status post chest tube. 3. Left ribs 8 through 11 fractures. 4. Right pleural effusion. 5. Urinary tract infection, uncomplicated. 6. Acute kidney injury, persistent. 7. History of atrial fibrillation, Alzheimer dementia, hypertension, aortic valve disease, and hypothyroidism. PLAN: Continue current diet and pain regimen. Continue physical and occupational therapy. Continue Rocephin. Continue supportive care. The patient is pending discharge to a retirement facility. She is ready for discharge at this time. Job ID: [id number]
[2020-08-11 05:04] LABS: #Basophils 0.1 thou/uL (0.0-0.2); #Eosinphils 0.3 thou/uL (0.0-0.7); #Lymphocytes 1.2 thou/uL (1.20-3.40); #Monocytes 0.5 thou/uL (0.11-0.59); #Neutrophils 5.9 thou/uL (1.40-6.50); %Basophils 1.1 % (0.0-1.0); %Eosinophils 3.4 % (0.0-10.0); %Lymphocytes 15.5 % (21.0-51.0); %Monocytes 5.9 % (0.0-10.0); %Neutrophils 74.1 % (42.0-75.0); Hemoglobin 10.7 g/dL (12.0-16.0); Mean Corpuscular HGB CONC 32.2 g/dL (32.0-36.0); Mean Corpuscular Hemoglobin 28.5 pg (27.0-31.0); Mean Corpuscular Volume 88.4 fL (78.0-98.0); Mean Platelet Volume 10.5 fL (7.4-10.4); Platelet Count 220 thou/uL (130-400); RBC Distribution Width 15.7 % (11.5-14.5); Red Blood Cell (RBC) Count 3.76 mill/uL (4.20-5.40)
[2020-08-11 05:28] LABS: Anion Gap 14 mmol/L (10-20); BUN (Urea Nitrogen) 46 mg/dL (9.8-20.1); Calc. Creatinine Clearance 20 mL/min (70-130); Calcium 8.5 mg/dL (7.8-10.44); Carbon Dioxide 27 mmol/L (23-31); Chloride 102 mmol/L (98-107); Glucose 101 mg/dL (83-110); Magnesium 2.1 mg/dL (1.6-2.6); Phosphorus 2.8 mg/dL (2.3-4.7); Potassium 3.7 mmol/L (3.5-5.1); Sodium 139 mmol/L (136-145)
[2020-08-11] MEDS ORDERED: K-Phos Neutral 250 MG TAB PO SCH (08:00)
[2020-08-11] MEDS: Digoxin 0.125 MG TAB PO SCH (08:31)
[2020-08-11] MEDS: Hydrochlorothiazide 25 MG TAB PO SCH (08:31)
[2020-08-11] MEDS: Famotidine 20 MG TAB PO SCH (08:34)
[2020-08-11 15:05] VITALS: BP 130/77; TEMP 97
--- NOTE | 2020-08-11 15:54 | DIS ---
DATE OF ADMISSION: 08/07/2020 DATE OF DISCHARGE: 08/11/2020 PRIMARY CARE PHYSICIAN: Dr. Ryan. DISCHARGE ATTENDING: Dr. Palacios. CONSULT: Palliative Care. PROCEDURE: Thoracostomy tube, left side for a hemopneumo. PRIMARY DIAGNOSES: 1. Left hydropneumothorax. 2. Elevated BNP. 3. Urinary tract infection, present on admission. 4. Status post fall with multiple falls. SECONDARY DIAGNOSIS: Hypothyroidism. DISCHARGE MEDICATIONS: 1. Acetaminophen 650 mg p.o. q.6 hours. 2. Flexeril 5 mg p.o. three times a day as needed for muscle spasms. 3. Digoxin 125 mcg p.o. daily. 4. Hydrochlorothiazide 25 mg p.o. daily. 5. Latanoprost eyedrops. 6. Metoprolol succinate 100 mg p.o. b.i.d. 7. Bacitracin ointment. 8. Tramadol 50 mg p.o. b.i.d. Discontinued medication, Xarelto. The patient needs to follow up with her primary care physician to see if this is actually needed due to her multiple recent falls. The patient is at increased risk of having a head bleed since she has been falling. HISTORY OF PRESENT ILLNESS AND HOSPITAL COURSE: This is an 89-year-old lady who resides at [facility]. The patient has had multiple recent falls. The patient was seen last week, where she underwent evaluation. The patient was also seen in the emergency room last week after falling and was discharged back to her Memory Care Unit. When the patient arrived to the emergency room this visit after falling, she was short of breath with a low SpO2 saturation of 88% on room air. The patient was evaluated and found to have a moderate-size left hemopneumothorax and the emergency room physician placed a chest tube. The patient was alert and oriented x1, which was her baseline. This confirmed the patient was a DNR, would not want to be intubated. The patient was admitted and pain was controlled. Repeat chest x-ray showed a resolution of her hemopneumo and her chest tube was removed. A repeat chest x-ray afterwards showed no significant pneumo or hemo. Initially, family had requested hospice care, but then decided they would like to wait. The patient remained on the telemetry floor with continuous cardiac monitoring. The patient's Xarelto was held during her hospital stay due to her having a hemopneumo. On the day of discharge, the patient's exam was unremarkable including cardiopulmonary and GI exam. The patient was awake, alert, oriented x1, which was her baseline. The patient's vital signs were stable and the patient was deemed stable for discharge to [facility]. DISPOSITION: Stable. DISCHARGE INSTRUCTIONS: 1. Location: [facility]. 2. Diet: Regular diet as tolerated. 3. Activity: As tolerated, incentive spirometer use every hour as tolerated. FOLLOWUP: Follow up with the patient's primary care physician. No need to follow up with Trauma Services. Call for any questions. The patient's Xarelto has been held due to multiple recent falls. The patient is to follow up with her primary care physician to be re-evaluated to see if the patient still needs to be on Xarelto, although the risks outweigh the benefits. The patient was examined by Dr. Palacios on the day of discharge. This is just a summary of the patient's hospital stay. Please see the entire chart for details. Job ID: [id number]
--- NOTE | 2020-08-13 14:57 | EKG ---
Test Reason : PALPITATIONS Blood Pressure : / mmHG Vent. Rate : 087 BPM Atrial Rate : 091 BPM P-R Int : 000 ms QRS Dur : 086 ms QT Int : 526 ms P-R-T Axes : 000 007 082 degrees QTc Int : 632 ms Atrial fibrillation Nonspecific T wave abnormality Abnormal ECG Confirmed by LISA DE SANTIAGO DO ([id number]), acquisitions editor CARLA BLANTON ([id number]) on 08/13/2020 2:56:27 PM Referred By: Confirmed By:LISA DE SANTIAGO DO
== END 2020-08-11 16:07 | DRG 199 ==
LOC: ERS 14:04 → SURG A 16:49 → 2SE 08-08 07:48
PROVIDERS: ADMIT Surgery; ATTEND Surgery
PROC: 0W9B30Z Drainage of Left Pleural Cavity with Drainage Device, Percutaneous Approach (ICD-10-PCS; principal; 2020-08-07)
DX: S27.2XXA Traumatic hemopneumothorax, initial encounter (principal); J18.9 Pneumonia, unspecified organism; S22.42XA Multiple fractures of ribs, left side, initial encounter for closed fracture; N39.0 Urinary tract infection, site not specified; N17.9 Acute kidney failure, unspecified; J90 Pleural effusion, not elsewhere classified; E03.9 Hypothyroidism, unspecified; G30.9 Alzheimer's disease, unspecified; H40.9 Unspecified glaucoma; F02.80 Dementia in other diseases classified elsewhere, unspecified severity, without behavioral disturbance, psychotic disturbance, mood disturbance, and anxiety; Z90.710 Acquired absence of both cervix and uterus; Z88.1 Allergy status to other antibiotic agents; Z88.2 Allergy status to sulfonamides; Z88.0 Allergy status to penicillin; Z79.899 Other long term (current) drug therapy; Z79.01 Long term (current) use of anticoagulants; Z78.1 Physical restraint status; I48.91 Unspecified atrial fibrillation; H35.30 Unspecified macular degeneration; E87.6 Hypokalemia; E83.42 Hypomagnesemia; R09.02 Hypoxemia; N18.9 Chronic kidney disease, unspecified; I12.9 Hypertensive chronic kidney disease with stage 1 through stage 4 chronic kidney disease, or unspecified chronic kidney disease
CPT/HCPCS: 32551; 36415; 36416; 51701; 70450; 71045; 71275; 80048; 80053; 80162; 81003; 81015; 83605; 83735; 83880; 84100; 84484; 85025; 87040; 87077; 87086; 87186; 87635; 93005; 93010; 94640; 96365; 96366; 96375; 96376; G0390; J0696; J0744; J1160; J1940; J1956; J2001; J3010; J3490; J7030; J7620; Q9967; U0003

== ENCOUNTER 2020-09-20 09:44 | Inpatient (IN) | payer MEDICARE, OTHER ==
[2020-09-20 10:29] LABS: Bacteria/HPF None Seen HPF (None Seen); Bilirubin Negative (Negative); Blood, Urine Negative (Negative); Clarity Clear (Clear); Glucose, Urine (Dipstick) Normal (Negative); Ketone, Urine Trace mg/dL (Negative); Leukocyte Negative Leu/uL (Negative); Nitrite Negative (Negative); Protein, Urine (Dipstick) 30 mg/dL (Neg-Trace); RBC/HPF 0-3 HPF (0-3); Specific Gravity, Urine 1.018 (1.002-1.036); Squamous Epithelial 0-3 HPF (0-3); Urobilinogen Normal mg/dL (Less than 2); WBC/HPF 0-3 HPF (0-3)
[2020-09-20] MEDS ORDERED: Iopamidol-370 76% 500 ML 1 ML ONE (10:30)
--- NOTE | 2020-09-20 10:30 | RAD ---
Exam: Chest one view HISTORY:Altered mental status. Fever. Comparison: 08/09/2020 FINDINGS: Cardiac silhouette:Cardiomegaly. Aorta: Atherosclerosis Pulmonary vessels: Normal Costophrenic angles: Interval development of pleural effusion in the right hemithorax. LUNGS: Opacities in the right lower lobe which may represent atelectasis, pneumonia or aspiration Pneumothorax: None Osseous abnormalities: None IMPRESSION: Normal parenchymal changes in the right lung base. Continued surveillance to ensure resol ution is recommended.
[2020-09-20 10:54] LABS: ALT (SGPT) 9 U/L (8-55); AST (SGOT) 21 U/L (5-34); Albumin 3.5 g/dL (3.4-4.8); Alkaline Phosphatase 64 U/L (40-110); Anion Gap 15 mmol/L (10-20); BUN (Urea Nitrogen) 22 mg/dL (9.8-20.1); Calc. Creatinine Clearance 0 mL/min (70-130); Calcium 9.2 mg/dL (7.8-10.44); Carbon Dioxide 26 mmol/L (23-31); Chloride 98 mmol/L (98-107); Globulin 2.8 g/dL (2.4-3.5); Glucose 128 mg/dL (83-110); Potassium 4.1 mmol/L (3.5-5.1); Protein, Total 6.3 g/dL (5.8-8.1); Sodium 135 mmol/L (136-145)
[2020-09-20] MEDS ORDERED: Levofloxacin 500 mg/D5W 100 ml Premix Bag ONE (10:57)
[2020-09-20] MEDS ORDERED: Vancomycin HCl 750 MG in Sodium Chloride 0.9% 250 ML 250 ML IVPB SCH (11:00)
[2020-09-20 11:10] LABS: CKMB 0.6 ng/mL (0-6.6)
[2020-09-20 11:59] LABS: Band 4 % (5-11); Hemoglobin 10.8 g/dL (12.0-16.0); Lymphocytes 1 % (21-51); MDiff Complete? YES; Mean Corpuscular HGB CONC 32.6 g/dL (32.0-36.0); Mean Corpuscular Hemoglobin 29.6 pg (27.0-31.0); Mean Corpuscular Volume 90.8 fL (78.0-98.0); Mean Platelet Volume 11.3 fL (7.4-10.4); Monocytes 5 % (0-10); Neutrophil 86 % (42-75); Platelet Count 99 thou/uL (130-400); Platelet Morphology Comment Appears Decreased; Polychromasia SLIGHT = 2-3 cells (100X) (0-2/hpf); RBC Distribution Width 15.6 % (11.5-14.5); Reactive Lymphocytes 4 % (0-10); Red Blood Cell (RBC) Count 3.65 mill/uL (4.20-5.40); Schistocytes SLIGHT = 2-5 cells (100X) (0-1/hpf); White Blood Cell (WBC) Count 12.9 thou/uL (4.8-10.8)
[2020-09-20] MEDS ORDERED: Aspirin 300 MG Suppository ONE (12:02)
[2020-09-20] MEDS ORDERED: Nitroglycerin 2% Ointment 1 INCH/1 GM Packet ONE (12:02)
--- NOTE | 2020-09-20 12:21 | CT ---
CT BRAIN WITHOUT CONTRAST: HISTORY:Altered mental status COMPARISON:08/07/2020 FINDINGS: There are foci of decreased attenuation in the periventricular white matter, consistent with chronic small vessel ischemic disease. No evidence of acute infarct, hemorrhage, midline shift or abnormal extra-axial fluid collections is seen. The ventricular size is appropriate and the basilar cisterns are patent. The bony calvarium is intact. The visualized paranasal sinuses and mastoid air cells are well aerated. IMPRESSION: No CT evidence of acute intracranial process.
[2020-09-20 12:29] LABS: SARS-CoV-2 NAA Rapid Test DETECTED (NotDetected)
[2020-09-20] MEDS ORDERED: Acetaminophen 650 MG Suppository ONE (12:53)
[2020-09-20] MEDS ORDERED: Furosemide 20 MG/2 ML VIAL SLOW IVP SCH (13:30)
--- NOTE | 2020-09-20 13:33 | PDOC.HHP ---
Hospitalist [facility] History of Present Illness: Ms. Menon is an 89-year-old female with a past medical history of A. fib on Xarelto, hypertension, hypothyroidism severe Alzheimer's dementia who resides at [facility] who was sent in for altered mental status and fevers to 100.4. Patient is nonverbal. History taken from [facility] staff. group home staff report that patient developed a fever overnight and that her mental status declined. Patient usually able to say her name, however patient became nonverbal. Her respirations were also noted to be slightly elevated at 26 So she was sent to the emergency room. Of note patient was recently admitted in July for a fall which was significant for several left-sided rib fractures and a left sided hemothorax that was drained with a CT tube by the trauma service. On discharge patient's Xarelto was discontinued, however in talking with the [facility] it appears patient has still been receiving this daily. Patient did receive her second dose of the Covid vaccine day prior to admission. In emergency room initial vital signs 160/83, 104, 19, 99.3, 92% on room air. Patient whenever she moves or is manipulated her sats to dip into the high 80s. CT brain negative for acute abnormalities. EKG with atrial fibrillation with ventricular rate of 103. Initial troponin 0 0.031. BUNs/CR 22/1.00, sodium 135, potassium 4.1, glucose 128. AST/ALT 21/9, alk phos 64. Lactic acid 1.9, WBC 12.9, H/H 10.8/33.1. BNP 1160. Chest x-ray showed a new right lower lobe infiltrate and effusion. Patient received rectal aspirin, Nitropaste, Tylenol, vancomycin and Levaquin. Patient did have an allergic reaction to Levaquin in the emergency room so this was discontinued. Allergies/Adverse Reactions: Allergy/AdvReac Type Severity Reaction Status Date / Time cephalexin Allergy Verified 08/07/20 20:53 erythromycin base Allergy Verified 08/07/20 20:53 Penicillins Allergy Verified 08/07/20 20:53 Sulfa (Sulfonamide Allergy Verified 08/07/20 20:53 Antibiotics) levofloxacin [From Levaquin] AdvReac Severe Verified 09/20/20 17:16 Home Medications: Medication Instructions Recorded Confirmed Type Metoprolol Succinate [Toprol XL] 100 mg PO BID 01/15/13 09/20/20 History Hydrochlorothiazide 25 mg PO DAILY 02/25/13 09/20/20 History Latanoprost [Xalatan 0.005% Ophth 1 drop EA EYE HS 07/19/15 09/20/20 History Soln] Acetaminophen With Codeine 1 tab PO Q4HR PRN 08/08/20 09/20/20 History [Tylenol with Codeine #3] Digoxin [Lanoxin] 125 mcg PO DAILY 08/08/20 09/20/20 History Multivit-Minerals/Folic/Ginkgo 1 tab PO DAILY 08/08/20 09/20/20 History [One Daily Women's 50+] Polyethylene Glycol 3350 [Miralax] 1 pk PO DAILY 08/08/20 09/20/20 History traMADol HCl [Ultram] 1 tab PO BID PRN 08/08/20 09/20/20 History Cyclobenzaprine [Flexeril] 5 mg PO TID PRN tab 08/10/20 09/20/20 Rx ALPRAZolam [Xanax] 0.25 mg PO BID PRN 09/20/20 09/20/20 History Acetaminophen ER (8hr) [TYLENOL ER 650 mg PO Q8H PRN 09/20/20 09/20/20 History (8hr ARTHRITIS PAIN)] Dm/Acetaminophen/Doxylamine [Cough 30 ml PO Q6HR PRN 09/20/20 09/20/20 History & Sore Throat Liquid] Rivaroxaban [Xarelto] 20 mg PO DAILY 09/20/20 09/20/20 History Past History: PMHx: Alzheimer's dementia Hypertension Atrial fibrillation not on anticoagulation secondary to falls Hypothyroidism Multiple falls PSHx: Hysterectomy FHx: Not able to assess due to mental status Social: Lives at [facility]. Her son is her POA. She is a DO NOT RESUSCITATE. Hospitalist HPI ROS ROS unobtainable: due to mental status Hospitalist Exam General Appearance: ill appearing Eye: PERRL, anicteric sclera ENT: normocephalic atraumatic, no oropharyngeal lesions, dry oral mucosa Neck: supple, symmetric, no JVD, no thyromegaly, no lymphadenopathy, no carotid bruit Heart: RRR, no murmur, no gallops, no rubs, normal peripheral pulses Respiratory: normal chest expansion, no tachypnea Respiratory - other findings: Diminished sounds on the right lower lung jose Gastrointestinal: soft, non-tender, non-distended, normal bowel sounds, no palpable masses, no hepatomegaly, no splenomegaly, no bruit Extremities: no cyanosis, no clubbing, no edema Skin: normal turgor, no lesions, no rashes Neurological: no focal deficits Neurological - other findings: Patient moving all 4 limbs spontaneously, does track Musculoskeletal: generalized weakness, diffuse muscle atrophy Psychiatric: not oriented Psychiatric - other findings: Awake but not verbal Hospitalist Results Result Diagrams: 09/24/20 20:38 09/24/20 20:38 Lab results: Laboratory Last Values WBC 12.9 thou/uL (4.8-10.8) H 09/20/20 11:24 RBC 3.65 mill/uL (4.20-5.40) L 09/20/20 11:24 Hgb 10.8 g/dL (12.0-16.0) L 09/20/20 11:24 Hct 33.1 % (36.0-47.0) L 09/20/20 11:24 MCV 90.8 fL (78.0-98.0) 09/20/20 11:24 MCH 29.6 pg (27.0-31.0) 09/20/20 11:24 MCHC 32.6 g/dL (32.0-36.0) 09/20/20 11:24 RDW 15.6 % (11.5-14.5) H 09/20/20 11:24 Plt Count 99 thou/uL (130-400) L 09/20/20 11:24 MPV 11.3 fL (7.4-10.4) H 09/20/20 11:24 Neutrophils % (Manual) 86 % (42-75) H 09/20/20 11:24 Band Neuts % (Manual) 4 % (5-11) L 09/20/20 11:24 Lymphocytes % (Manual) 1 % (21-51) L 09/20/20 11:24 Reactive Lymphs % 4 % (0-10) 09/20/20 11:24 Monocytes % (Manual) 5 % (0-10) 09/20/20 11:24 Plt Morphology Comment Appears Decreased L 09/20/20 11:24 Polychromasia SLIGHT = 2-3 cells (100X) (0-2/hpf) 09/20/20 11:24 Schistocytes SLIGHT = 2-5 cells (100X) (0-1/hpf) 09/20/20 11:24 Sodium 135 mmol/L (136-145) L 09/20/20 10:23 Potassium 4.1 mmol/L (3.5-5.1) 09/20/20 10:23 Chloride 98 mmol/L (98-107) 09/20/20 10:23 Carbon Dioxide 26 mmol/L (23-31) 09/20/20 10:23 Anion Gap 15 mmol/L (10-20) 09/20/20 10:23 BUN 22 mg/dL (9.8-20.1) H 09/20/20 10:23 Creatinine 1.00 mg/dL (0.6-1.1) 09/20/20 10:23 Estimated GFR (MDRD) 52 09/20/20 10:23 Glucose 128 mg/dL (83-110) H 09/20/20 10:23 Lactic Acid 1.9 mmol/L (0.5-2.2) 09/20/20 11:24 Calcium 9.2 mg/dL (7.8-10.44) 09/20/20 10:23 Total Bilirubin 1.0 mg/dL (0.2-1.2) 09/20/20 10:23 AST 21 U/L (5-34) 09/20/20 10:23 ALT 9 U/L (8-55) 09/20/20 10:23 Alkaline Phosphatase 64 U/L (40-110) 09/20/20 10:23 CK-MB (CK-2) 0.6 ng/mL (0-6.6) 09/20/20 10:23 Troponin I 0.031 ng/mL (< 0.028) H 09/20/20 10:23 B-Natriuretic Peptide 1160.2 pg/mL (0-100) H 09/20/20 11:24 Serum Total Protein 6.3 g/dL (5.8-8.1) 09/20/20 10:23 Albumin 3.5 g/dL (3.4-4.8) 09/20/20 10:23 Globulin 2.8 g/dL (2.4-3.5) 09/20/20 10:23 Albumin/Globulin Ratio 1.3 g/dL (1.2-2.2) 09/20/20 10:23 Urine Color Yellow (Yellow) 09/20/20 10:12 Urine Clarity Clear (Clear) 09/20/20 10:12 Urine pH 7.0 (5.0-9.0) 09/20/20 10:12 Ur Specific [place] 1.018 (1.002-1.036) 09/20/20 10:12 Urine Protein 30 mg/dL (Neg-Trace) A 09/20/20 10:12 Urine Glucose (UA) Normal mg/dL (Negative) 09/20/20 10:12 Urine Ketones Trace mg/dL (Negative) A 09/20/20 10:12 Urine Blood Negative (Negative) 09/20/20 10:12 Urine Nitrite Negative (Negative) 09/20/20 10:12 Urine Bilirubin Negative (Negative) 09/20/20 10:12 Urine Urobilinogen Normal mg/dL (Less than 2) 09/20/20 10:12 Ur Leukocyte Esterase Negative [place]/uL (Negative) 09/20/20 10:12 Urine RBC 0-3 HPF (0-3) 09/20/20 10:12 Urine WBC 0-3 HPF (0-3) 09/20/20 10:12 Ur Squamous Epith Cells 0-3 HPF (0-3) 09/20/20 10:12 Urine Bacteria None Seen HPF (None Seen) 09/20/20 10:12 Influenza A RNA INAAT Not Detected (NotDetected) 09/20/20 11:43 Influenza B RNA INAAT Not Detected (NotDetected) 09/20/20 11:43 SARS-CoV-2 Rap RNA(RT-PCR) DETECTED (NotDetected) A* 09/20/20 11:43 Hospitalist H&P A/P Plan: Right Lower Lobe Pneumonia with Effusion 89-year-old female with past medical history of A. fib, hypertension, Alzh eimer's disease with multiple falls presents with altered mental status, fever and increased respirations. WBC elevated to 12. Chest x-ray showed new right lower lobe infiltrate and effusion. Of note patient does have a history of a recent fall with rib fracture and hemothorax on the left in July. Will obtain CT chest to assess for occult fracture on the right. Patient started on vancomycin and Levaquin in the emergency room, however she did have an allergic after Levaquin. We will continue vancomycin and start meropenem due to patient's extensive allergies to abx. Patient did receive her second dose of the Covid vaccine yesterday. We will continue antibiotics and trial small dose of Lasix. Plan Vancomycin, Meropenem CT chest Covid, flu panel pending Trend fever curve, WBC Pleural Effusion Pt with moderate sized pleural effusion on the R. Suspect parapeumonic effusion. Will continue abx, trial small dose of lasix and consult pulmonology for fu rther recommendations. Plan -Small dose lasix -Pulmonology consult, recommendations appreciated. Sepsis without septic shock Patient meeting SIRS criteria with fever to 100.4, elevated respirations, mild tachycardia and elevated WBC with source. Lactic acid 1.9. Will start on vancomycin and meropenem (due to patient's allergies to cephalexin, penicillins and Levaquin). Patient received IV fluids in the emergency room. Plan IV meropenem, vanc Follow blood cultures Trend lactic acid, WBC, fever curve Acute metabolic encephalopathy Patient with acute metabolic encephalopathy with worsening of baseline mental status. Nurse reports patient usually able to say her name, but currently patient only groaning on exam. Likely secondary to infectious process. CT brain negative. Plan Treatment as above Reorienting measures Elevation in troponin Troponin mildly elevated to 0.031. Unable to assess for chest pain due to mental status. EKG with no ST changes, however does show atrial fibrillation. Suspect likely mildly elevated and setting of increased demand ischemia secondary to pneumonia/effusion. Will place on telemetry monitoring and continue to trend. Patient did receive rectal aspirin in the emergency room. Plan Trend troponin Telemetry monitoring Atrial fibrillation Patient with history of A. fib, was taking Xarelto, however had multiple falls and in July a large hemothorax which was treated by the trauma service team with the chest tube. Patient was discontinued on Xarelto at that time, however upon discussion with the [facility] it appears patient is still taking Xarelto. We will discontinue as patient is at high risk for falls and intracranial bleeds. Patient with controlled ventricular rate currently. We will continue rate control medications as needed. Plan Stop Xarelto Telemetry monitoring Hypothyroidism Continue home medications once confirmed DVT prophylaxiscontraindicated secondary to bleeds and falls DNR confirmed with [facility] records. Son is POA. Case discussed with attending physician, Dr. Shell.
[2020-09-20] MEDS ORDERED: Acetaminophen 650 MG Suppository PR PRN (14:16)
[2020-09-20] MEDS ORDERED: Acetaminophen 325 MG TAB PO PRN (14:16)
--- NOTE | 2020-09-20 15:05 | CT ---
CT PULMONARY ANGIOGRAM WITH IV CONTRAST AND 3D POSTPROCESSING: HISTORY: Pleural effusion. History of hemothorax, COVID positive. FINDINGS: Comparison 08/07/2020. FINDINGS: There is good contrast opacification of the pulmonary arterial vasculature without filling defects to suggest pulmonary embolism. There are vascular calcifications without evidence of aneurysm or disse ction of the thoracic aorta. There are bilateral pleural effusions, moderate on the right and small on the left with adjacent atelectatic changes. No pneumothoraces are seen. There is a stable 3 mm n odule in the anterior aspect of the right upper lobe. There are degenerative changes in the spine. Left-sided 8th through 11th posterior rib fractures are again seen. Prominence of the adrenal glands is stable. Heterogeneity in the thyroid gland is agai n seen. IMPRESSION: 1. No CT evidence of pulmonary embolism. 2. Bilateral pleural effusions, right larger than left. POS: OFF
[2020-09-20 17:30] LABS: Troponin I 0.038 ng/mL (< 0.028)
[2020-09-20] MEDS: Albuterol 200 PUFF (6.7GM INHALER) INH SCH (19:33)
[2020-09-20] MEDS: MEROPENEM 1 GM/50 ML 1 GM in Premix Bag 1 BAG IVPB SCH (21:43)
[2020-09-21 04:52] LABS: #Basophils 0.1 thou/uL (0.0-0.2); #Lymphocytes 0.6 thou/uL (1.20-3.40); #Monocytes 0.7 thou/uL (0.11-0.59); #Neutrophils 9.8 thou/uL (1.40-6.50); %Basophils 0.6 % (0.0-1.0); %Eosinophils 0.4 % (0.0-10.0); %Lymphocytes 5.3 % (21.0-51.0); %Neutrophils 87.7 % (42.0-75.0); Mean Corpuscular HGB CONC 33.2 g/dL (32.0-36.0); Mean Corpuscular Hemoglobin 30.8 pg (27.0-31.0); Mean Corpuscular Volume 92.8 fL (78.0-98.0); Mean Platelet Volume 11.5 fL (7.4-10.4); Platelet Count 76 thou/uL (130-400); RBC Distribution Width 15.3 % (11.5-14.5); Red Blood Cell (RBC) Count 3.89 mill/uL (4.20-5.40); White Blood Cell (WBC) Count 11.2 thou/uL (4.8-10.8)
[2020-09-21 05:01] LABS: Anion Gap 16 mmol/L (10-20); BUN (Urea Nitrogen) 23 mg/dL (9.8-20.1); Calc. Creatinine Clearance 26 mL/min (70-130); Calcium 8.6 mg/dL (7.8-10.44); Carbon Dioxide 22 mmol/L (23-31); Chloride 100 mmol/L (98-107); Glucose 140 mg/dL (83-110); Potassium 3.4 mmol/L (3.5-5.1); Sodium 135 mmol/L (136-145)
[2020-09-21] MEDS: MEROPENEM 1 GM/50 ML 1 GM in Premix Bag 1 BAG IVPB SCH (05:02)
[2020-09-21] MEDS: Albuterol 200 PUFF (6.7GM INHALER) INH SCH ×3 (06:18→18:45)
--- NOTE | 2020-09-21 06:42 | CON ---
DATE OF CONSULTATION: HISTORY OF PRESENT ILLNESS: Alivia Menon is an 89-year-old demented patient from the [facility], who apparently was brought into the hospital after receiving a second coronavirus injection, became altered. She had a positive serology done today. She is unable to give any history. X-ray shows bilateral pleural effusion, right greater than left. CT confirmed this. I see no infiltrates, nothing to suspect any febrile illness. PAST MEDICAL HISTORY: 1. Dementia. 2. Atrial fibrillation. 3. CHF. 4. Hypothyroidism. 5. Hypertension. PAST SURGICAL HISTORY: Otherwise included; 1. Recent chest tube inserted for left-sided hydropneumothorax 2 months ago. 2. Hysterectomy. SOCIAL HISTORY: No alcohol or tobacco abuse. PRISON MEDICINE: As outlined, includes; 1. Tramadol. 2. Metoprolol 100. 3. Eyedrops. 4. Nebulizer. 5. HCTZ 25. 6. Digoxin 125. 7. Flexeril. 8. Tylenol. ALLERGIES: PENICILLINS, KEFLEX, SULFA. REVIEW OF SYSTEMS: Otherwise unobtainable. PHYSICAL EXAMINATION: GENERAL: She is in no acute distress, on low-flow O2 at 93, respirations 16, temperature 97, blood pressure 130/77. CHEST: Decreased breath sounds bilaterally. No wheezing. No crackles. CARDIAC: Normal S1, S2. No gallops. ABDOMEN: No masses. LABORATORY DATA: White count 12,000, H and H of 10 and 33, platelet count is low at 99,000 . Lytes are normal. Troponin was slightly elevated. BNP was 1160. SARS-CoV RNA PCR positive. IMPRESSION: 1. Altered mental status, baseline dementia. 2. CHF. 3. Bilateral pleural effusion, right greater than left. 4. Recent fall with left-sided hydropneumothorax. 5. Hypothyroidism. 6. Hypertension. 7. Atrial fibrillation. PLAN: I am not sure she is septic. It is very unusual for her to have a positive serology after 2nd shot of vaccination. I would consult Cardiology to continue diuretics. Avoid excessive antibiotics. I am going to notify Dr. Mccann, who has seen her in the past. Consultation note, 70 minutes, 50% direct patient care. Job ID: [id number]
[2020-09-21] MEDS ORDERED: Acetaminophen/Codeine 30-300mg Tablet PO PRN (08:27)
[2020-09-21] MEDS ORDERED: ALPRAZolam 0.25 MG TAB PO PRN (08:27)
--- NOTE | 2020-09-21 11:24 | PRG ---
DATE OF SERVICE: 09/21/2020 SUBJECTIVE: The patient is confused but pleasant. OBJECTIVE: VITAL SIGNS: She is currently on 2 L nasal cannula and O2 saturation is 99%. Temperature 96.9, pulse 84, blood pressure 137/62. GENERAL: She does not appear to be in any distress. HEENT: Unremarkable. NECK: No JVD. LUNGS: Clear. CARDIAC: S1 and S2. Regular. ABDOMEN: Soft. EXTREMITIES: No edema. ASSESSMENT: COVID positive without evidence of overt respiratory decompensation. It is assumed that she was having reaction to the second vaccine. She seems to be back at baseline. RECOMMENDATIONS: I would send her back to the [facility] today. Job ID: [id number]
[2020-09-21] MEDS: Digoxin 0.125 MG TAB PO SCH (12:39)
--- NOTE | 2020-09-21 12:59 | PDOC.HOSPP ---
- Subjective Encounter Date: 09/21/20 Encounter Time: 09:30 Subjective: Patient seen and examined. Patient is confused baseline, no overnight events - Objective Vital Signs & Weight: Vital Signs (12 hours) Temp Pulse Resp BP BP Pulse Ox 09/21/20 12:00 96.8 F L 17 127/55 L 100 09/21/20 08:15 96.9 F L 84 18 137/62 99 09/21/20 06:00 100 20 130/68 97 09/21/20 05:55 96.2 F L 93 25 H 130/68 97 Weight Weight 91 lb I&O: 09/20/20 09/21/20 09/22/20 06:59 06:59 06:59 Intake Total 160 Balance 160 Result Diagrams: 09/21/20 04:39 09/21/20 04:39 EKG Reviewed by me: Yes Hospitalist ROS - Review of Systems ROS unobtainable: due to mental status - Medication Medications: Active Medications Generic Name Dose Route Start Last Admin Trade Name Freq PRN Reason Stop Dose Admin Acetaminophen 650 mg 09/20/20 14:16 09/20/20 18:19 Acetaminophen 650 Mg Suppository [place] 650 mg Q4H PRN Administration Headache/Fever/Mild Pain (1-3) Albuterol Sulfate 2 puff 09/20/20 18:30 09/21/20 06:18 Albuterol 200 Puff (6.7gm Inhaler) INH 2 puff TID-RT CHANDNI Administration Digoxin 0.125 mg 09/21/20 09:00 09/21/20 12:39 Digoxin 0.125 Mg Tab PO 0.125 mg DAILY CHANDNI Administration Meropenem 1 gm/ Device 50 mls @ 200 mls/hr 09/20/20 22:00 09/21/20 05:02 IVPB 50 mls Q8HR CHANDNI Administration Hospitalist Exam Vitals: Vital Signs (12 hours) Temp Pulse Resp BP BP Pulse Ox 09/21/20 12:00 96.8 F L 17 127/55 L 100 09/21/20 08:15 96.9 F L 84 18 137/62 99 09/21/20 06:00 100 20 130/68 97 09/21/20 05:55 96.2 F L 93 25 H 130/68 97 Weight Weight 91 lb General Appearance: NAD, ill appearing Eye: PERRL, anicteric sclera ENT: normocephalic atraumatic, no oropharyngeal lesions Neck: supple, symmetric, no JVD Heart: RRR, no murmur, no gallops, no rubs Respiratory: no wheezes, no ronchi Respiratory - other findings: Basilar rales Gastrointestinal: soft, non-tender, non-distended, normal bowel sounds Extremities: no clubbing, no edema Skin: normal turgor Neurological: no focal deficits Musculoskeletal: normal tone, generalized weakness, diffuse muscle atrophy Psychiatric: not oriented Hosp A/P (1) Acute on chronic congestive heart failure Code(s): I50.9 - HEART FAILURE, UNSPECIFIED Status: Acute (2) COVID-19 Code(s): U07.1 - COVID-19 Status: Acute (3) Elevated troponin Code(s): R77.8 - OTHER SPECIFIED ABNORMALITIES OF PLASMA PROTEINS Status: Acute (4) Protein-calorie malnutrition, moderate Code(s): E44.0 - MODERATE PROTEIN-CALORIE MALNUTRITION Status: Chronic (5) Paroxysmal atrial fibrillation Code(s): I48.0 - PAROXYSMAL ATRIAL FIBRILLATION Status: Chronic (6) Anxiety and depression Code(s): F41.9 - ANXIETY DISORDER, UNSPECIFIED; F32.9 - MAJOR DEPRESSIVE DISORDER, SINGLE EPISODE, UNSPECIFIED Status: Chronic (7) Glaucoma Code(s): H40.9 - UNSPECIFIED GLAUCOMA Status: Chronic (8) Dementia Code(s): F03.90 - UNSPECIFIED DEMENTIA WITHOUT BEHAVIORAL DISTURBANCE Status: Chronic Qualifiers: Dementia type: Alzheimer's - Plan old records reviewed/req, speech therapy, respiratory therapy Continue Lasix 20 mg IV twice daily Discontinue antibiotic therapy Cardiology consultation Echocardiography will be obtained Patient is not a candidate for chronic anticoagulation because of her fall risk and bleeding risk, Nutritional support Medication reviewed and continue provide symptomatic and supportive care Expecting discharge in next 24 to 48 hours. After swallow evaluation start diet as ordered
[2020-09-21] MEDS ORDERED: Spironolactone 25 MG TAB PO SCH (13:45)
[2020-09-21] MEDS: Polyethylene Glycol 3350 17 GM Packet PO SCH (14:07)
--- NOTE | 2020-09-21 14:18 | CON ---
DATE OF CONSULTATION: 09/21/2020 REASON FOR CONSULTATION: Chronic atrial fibrillation, diastolic heart failure, COVID pneumonia. HISTORY OF PRESENT ILLNESS: Ms. Menon is a very pleasant 89-year-old woman, who was previously seen and evaluated by Dr. Allen. She underwent cardioversion in 2016, but went back into fibrillation. Apparently, she has been in fibrillation since then. The patient is admitted to the hospital on this occasion with shortness of breath and found to have COVID infection. The patient developed altered mental status after second COVID injection. She is unable to give any history currently. PAST MEDICAL HISTORY: 1. Chronic atrial fibrillation. 2. Diastolic heart failure. 3. Dementia. 4. Hypothyroidism. SURGICAL HISTORY: Previous chest tube insertion due to hydropneumothorax. SOCIAL HISTORY: No alcohol or tobacco. She lives in a [facility]. MEDICATIONS: At the [facility], she is listed as being on; 1. Metoprolol. 2. Digoxin. 3. Flexeril. REVIEW OF SYSTEMS: Not obtainable. ALLERGIES: TO PENICILLIN, KEFLEX, AND SULFA. PHYSICAL EXAMINATION: GENERAL: This is a very frail-appearing, elderly woman, unable to give any history. VITAL SIGNS: Blood pressure 137/62, pulse 80 and it is irregular. LUNGS: Clear. CARDIAC: Irregularly irregular. I do not hear murmur, rub, or gallop. ABDOMEN: Soft and nontender. EXTREMITIES: Warm and dry. No clubbing, cyanosis, or edema. However, feet are cool, but not cold. LABORATORY DATA: Serology positive for COVID-2. Potassium is 3.4, creatinine is 0.95. BNP 1160. Chest x-ray, pleural effusions, really does not seem to have much pulmonary vascular congestion. The patient has a right pleural effusion. I do not see significant effusion on the left. ASSESSMENT: 1. Congestive heart failure, diastolic, chronic, previously normal left ventricular function. 2. Chronic atrial fibrillation. 3. Positive COVID infection. PLAN: 1. Continue digoxin. 2. It appears beta blockers being held. We can recheck heart rate tomorrow to see if that needs to be restarted. 3. She is on diuretics. 4. We will add spironolactone. No other recommendations other than consideration for anticoagulation. We will start at least low-dose anticoagulant at this time. Job ID: [id number]
[2020-09-21] MEDS: Furosemide 20 MG/2 ML VIAL SLOW IVP SCH (15:18)
[2020-09-21] MEDS ORDERED: Magnesium 2 GM/50 ML 2 GM in Premix Bag 1 BAG IVPB SCH (18:15)
[2020-09-21] MEDS: Latanoprost 0.005% Ophth Soln 2.5 ml Bottle EA EYE SCH (21:02)
[2020-09-22 05:39] LABS: Anion Gap 16 mmol/L (10-20); BUN (Urea Nitrogen) 32 mg/dL (9.8-20.1); Calc. Creatinine Clearance 21 mL/min (70-130); Calcium 8.9 mg/dL (7.8-10.44); Carbon Dioxide 24 mmol/L (23-31); Chloride 100 mmol/L (98-107); Glucose 127 mg/dL (83-110); Magnesium 2.5 mg/dL (1.6-2.6); Potassium 3.4 mmol/L (3.5-5.1); Sodium 137 mmol/L (136-145)
[2020-09-22 05:44] LABS: Band 4 % (5-11); Hemoglobin 10.9 g/dL (12.0-16.0); Lymphocytes 3 % (21-51); MDiff Complete? YES; Mean Corpuscular HGB CONC 32.7 g/dL (32.0-36.0); Mean Corpuscular Volume 91.8 fL (78.0-98.0); Mean Platelet Volume 12.6 fL (7.4-10.4); Monocytes 8 % (0-10); Neutrophil 85 % (42-75); Platelet Count 84 thou/uL (130-400); Platelet Morphology Comment Appears Decreased; RBC Distribution Width 15.4 % (11.5-14.5); Red Blood Cell (RBC) Count 3.63 mill/uL (4.20-5.40); White Blood Cell (WBC) Count 13.5 thou/uL (4.8-10.8)
[2020-09-22] MEDS: Furosemide 20 MG/2 ML VIAL SLOW IVP SCH (06:07)
[2020-09-22] MEDS: Albuterol 200 PUFF (6.7GM INHALER) INH SCH ×3 (06:07→17:18)
[2020-09-22] MEDS ORDERED: Potassium Chloride 20 MEQ TAB PO SCH (08:15)
[2020-09-22] MEDS ORDERED: Furosemide 20 MG/2 ML VIAL SLOW IVP SCH (09:00)
[2020-09-22] MEDS ORDERED: Rivaroxaban 15 MG TAB PO SCH (09:00)
[2020-09-22] MEDS: Spironolactone 25 MG TAB PO SCH (09:09)
[2020-09-22] MEDS: Aspirin 81 mg Enteric Coated Tablet PO SCH (09:10)
[2020-09-22] MEDS: Cyanocobalamin (Vitamin B-12) 1,000 MCG TAB PO SCH (09:10)
[2020-09-22] MEDS: Ascorbic Acid 500 mg Chewable Tablet PO SCH (09:10)
[2020-09-22] MEDS: Cholecalciferol 1,000 UNITS (25 MCG) TAB PO SCH (09:10)
[2020-09-22] MEDS: Digoxin 0.125 MG TAB PO SCH (09:11)
[2020-09-22] MEDS: Folic Acid 1 MG TAB PO SCH (09:11)
[2020-09-22] MEDS: Magnesium Oxide 400 MG TAB PO SCH (09:11)
[2020-09-22] MEDS: Polyethylene Glycol 3350 17 GM Packet PO SCH (09:12)
[2020-09-22] MEDS: Vitamin E 400 UNITS CAP PO SCH (09:12)
[2020-09-22] MEDS: Zinc Sulfate 220 MG CAP PO SCH (09:12)
--- NOTE | 2020-09-22 09:26 | PRG ---
DATE OF SERVICE: 09/22/2020 SUBJECTIVE: Ms. Menon is stable. Heart rate appears stable. Heart rate is in the 90s to 100s. She is not oriented to time, person, or place. OBJECTIVE: VITAL SIGNS: Blood pressure 157/84, pulse 112 afebrile. Physical exam deferred due to COVID positive. PERTINENT LABORATORY DATA: Hemoglobin 10.9, hematocrit 33.3. IMPRESSION: 1. Chronic atrial fibrillation. 2. COVID positive pneumonia. RECOMMENDATION: Discussion with Ladonna, the nurse. It appears the patient has been on and off anticoagulation therapy in the past. I reached out her at a [phone] number and a [phone] number. The [phone] number is not able to leave voicemail. Nobody answered the [phone] number to see whether Ms. Menon needs anticoagulation therapy or not. We will defer anticoagulation therapy currently until we can assess whether the patient would benefit or whether she has had any bleeding issues in the past. Being COVID positive, may also benefit from anticoagulation therapy due to thrombosis. We would recommend increasing metoprolol to 75 q.a.m. We will also recommend continuing digoxin. Job ID: [id number]
--- NOTE | 2020-09-22 12:19 | PDOC.HOSPP ---
- Subjective Encounter Date: 09/22/20 Encounter Time: 08:30 Subjective: Patient seen and examined. No overnight event, cardiology adjusted medication today, - Objective Vital Signs & Weight: Vital Signs (12 hours) Temp Pulse Resp BP Pulse Ox 09/22/20 09:11 104 H 09/22/20 07:38 97.4 F L 112 H 18 157/84 H 94 L 09/22/20 04:00 97.7 F 95 18 138/75 97 09/22/20 03:30 97.4 F L 96 19 135/70 100 Weight Admit Weight 91 lb 4.8 oz Weight 91 lb I&O: 09/21/20 09/22/20 09/23/20 06:59 06:59 06:59 Intake Total 160 120 Output Total 500 Balance 160 -380 Result Diagrams: 09/22/20 04:54 09/22/20 04:54 EKG Reviewed by me: Yes Hospitalist ROS - Review of Systems ROS unobtainable: due to mental status - Medication Medications: Active Medications Generic Name Dose Route Start Last Admin Trade Name Freq PRN Reason Stop Dose Admin Acetaminophen 650 mg 09/20/20 14:16 09/20/20 18:19 Acetaminophen 650 Mg Suppository [place] 650 mg Q4H PRN Administration Headache/Fever/Mild Pain (1-3) Albuterol Sulfate 2 puff 09/20/20 18:30 09/22/20 06:07 Albuterol 200 Puff (6.7gm Inhaler) INH 2 puff TID-RT CHANDNI Administration Ascorbic Acid 1,000 mg 09/22/20 09:00 09/22/20 09:10 Ascorbic Acid 500 Mg Chewable Tablet PO 1,000 mg DAILY CHANDNI Administration Aspirin 81 mg 09/22/20 09:00 09/22/20 09:10 Aspirin 81 Mg Enteric Coated Tablet PO 81 mg DAILY CHANDNI Administration Cholecalciferol 1,000 units 09/22/20 09:00 09/22/20 09:10 Cholecalciferol 1,000 Units (25 Mcg) Tab PO 1,000 units DAILY CHANDNI Administration Cyanocobalamin 1,000 mcg 09/22/20 09:00 09/22/20 09:10 Cyanocobalamin (Vitamin B-12) 1,000 Mcg Tab PO 1,000 mcg DAILY CHANDNI Administration Digoxin 0.125 mg 09/21/20 09:00 09/22/20 09:11 Digoxin 0.125 Mg Tab PO 0.125 mg DAILY CHANDNI Administration Folic Acid 1 mg 09/22/20 09:00 09/22/20 09:11 Folic Acid 1 Mg Tab PO 1 mg DAILY CHANDNI Administration Furosemide 20 mg 09/22/20 09:00 09/22/20 09:11 Furosemide 20 Mg/2 Ml Vial SLOW IVP 20 mg DAILY CHANDNI Administration Latanoprost 1 drop 09/21/20 21:00 09/21/20 21:02 Latanoprost 0.005% Ophth Soln 2.5 Ml Bottle EA EYE 1 drop HS CHANDNI Administration Magnesium Oxide 400 mg 09/22/20 09:00 09/22/20 09:11 Magnesium Oxide 400 Mg Tab PO 400 mg DAILY CHANDNI Administration Pantoprazole Sodium 40 mg 09/22/20 09:00 09/22/20 09:11 Pantoprazole 40 Mg Tab PO 40 mg DAILY CHANDNI Administration Polyethylene Glycol 17 gm 09/21/20 09:00 09/22/20 09:12 Polyethylene Glycol 3350 17 Gm Packet PO Not Given DAILY CHANDNI Spironolactone 25 mg 09/22/20 08:00 09/22/20 09:09 Spironolactone 25 Mg Tab PO 25 mg QAM-WM CHANDNI Administration Vitamin E 400 units 09/22/20 09:00 09/22/20 09:12 Vitamin E 400 Units Cap PO 400 units DAILY CHANDNI Administration Zinc Sulfate 220 mg 09/22/20 09:00 09/22/20 09:12 Zinc Sulfate 220 Mg Cap PO 220 mg DAILY CHANDNI Administration Hospitalist Exam Vitals: Vital Signs (12 hours) Temp Pulse Resp BP Pulse Ox 09/22/20 09:11 104 H 09/22/20 07:38 97.4 F L 112 H 18 157/84 H 94 L 09/22/20 04:00 97.7 F 95 18 138/75 97 09/22/20 03:30 97.4 F L 96 19 135/70 100 Weight Admit Weight 91 lb 4.8 oz Weight 91 lb General Appearance: NAD, ill appearing Eye: PERRL, anicteric sclera ENT: normocephalic atraumatic, no oropharyngeal lesions Neck: supple, symmetric, no JVD Heart: RRR, no murmur, no gallops, no rubs Respiratory: no wheezes, no rales, no ronchi Gastrointestinal: soft, non-tender, non-distended, normal bowel sounds Extremities: no cyanosis, no clubbing, no edema Skin: normal turgor, no lesions Neurological: no focal deficits Musculoskeletal: normal tone, normal strength Psychiatric: normal affect, not oriented Hosp A/P (1) Acute on chronic congestive heart failure Code(s): I50.9 - HEART FAILURE, UNSPECIFIED Status: Acute (2) COVID-19 Code(s): U07.1 - COVID-19 Status: Acute (3) Elevated troponin Code(s): R77.8 - OTHER SPECIFIED ABNORMALITIES OF PLASMA PROTEINS Status: Acute (4) Protein-calorie malnutrition, moderate Code(s): E44.0 - MODERATE PROTEIN-CALORIE MALNUTRITION Status: Chronic (5) Paroxysmal atrial fibrillation Code(s): I48.0 - PAROXYSMAL ATRIAL FIBRILLATION Status: Chronic (6) Anxiety and depression Code(s): F41.9 - ANXIETY DISORDER, UNSPECIFIED; F32.9 - MAJOR DEPRESSIVE DISORDER, SINGLE EPISODE, UNSPECIFIED Status: Chronic (7) Glaucoma Code(s): H40.9 - UNSPECIFIED GLAUCOMA Status: Chronic (8) Dementia Code(s): F03.90 - UNSPECIFIED DEMENTIA WITHOUT BEHAVIORAL DISTURBANCE Status: Chronic Qualifiers: Dementia type: Alzheimer's - Plan old records reviewed/req Reduce Lasix 20 mg IV daily Metoprolol increased by cardiology Patient is not a candidate for chronic anticoagulation because of her fall risk and bleeding risk, Nutritional support Medication reviewed and continue provide symptomatic and supportive care Expecting discharge tomorrow Continue diet as tolerated, nutritional support, Repeat labs tomorrow
[2020-09-22] MEDS: Latanoprost 0.005% Ophth Soln 2.5 ml Bottle EA EYE SCH (21:30)
[2020-09-23 04:57] LABS: Anion Gap 15 mmol/L (10-20); BUN (Urea Nitrogen) 45 mg/dL (9.8-20.1); Calc. Creatinine Clearance 13 mL/min (70-130); Calcium 8.9 mg/dL (7.8-10.44); Carbon Dioxide 25 mmol/L (23-31); Chloride 104 mmol/L (98-107); Glucose 134 mg/dL (83-110); Potassium 3.9 mmol/L (3.5-5.1); Sodium 140 mmol/L (136-145)
[2020-09-23 05:30] LABS: Anisocytosis SLIGHT = 6-15 cells (100X) (0-5/hpf); Band 14 % (5-11); Lymphocytes 4 % (21-51); MDiff Complete? YES; Mean Corpuscular HGB CONC 32.9 g/dL (32.0-36.0); Mean Corpuscular Volume 91.4 fL (78.0-98.0); Mean Platelet Volume 12.4 fL (7.4-10.4); Monocytes 10 % (0-10); Neutrophil 72 % (42-75); Platelet Count 96 thou/uL (130-400); Platelet Morphology Comment Appears Decreased; RBC Distribution Width 15.6 % (11.5-14.5); Red Blood Cell (RBC) Count 3.65 mill/uL (4.20-5.40); White Blood Cell (WBC) Count 21.5 thou/uL (4.8-10.8)
[2020-09-23] MEDS: Albuterol 200 PUFF (6.7GM INHALER) INH SCH ×3 (05:41→18:34)
[2020-09-23] MEDS ORDERED: Multivit, Adult Inj 10 ML VIAL IV SCH (09:00)
[2020-09-23] MEDS ORDERED: D5 1/2 NS w/20 mEq KCL 1,000 ML IV SCH (09:00)
[2020-09-23] MEDS: Aspirin 81 mg Enteric Coated Tablet PO SCH (09:34)
[2020-09-23] MEDS: Cyanocobalamin (Vitamin B-12) 1,000 MCG TAB PO SCH (09:34)
[2020-09-23] MEDS: Cholecalciferol 1,000 UNITS (25 MCG) TAB PO SCH (09:34)
[2020-09-23] MEDS: Spironolactone 25 MG TAB PO SCH (09:34)
[2020-09-23] MEDS: Digoxin 0.125 MG TAB PO SCH (09:35)
[2020-09-23] MEDS: Magnesium Oxide 400 MG TAB PO SCH (09:35)
[2020-09-23] MEDS: Folic Acid 1 MG TAB PO SCH (09:35)
[2020-09-23] MEDS: Polyethylene Glycol 3350 17 GM Packet PO SCH (09:36)
[2020-09-23] MEDS: Zinc Sulfate 220 MG CAP PO SCH (09:36)
[2020-09-23] MEDS: Vitamin E 400 UNITS CAP PO SCH (09:37)
[2020-09-23] MEDS: Ascorbic Acid 500 mg Chewable Tablet PO SCH (09:41)
[2020-09-23] MEDS: Multivitamins, Adult 10 ML in D5 1/2 NS w/20 mEq KCL 1,000 ML IV SCH ×2 (09:41→11:13)
[2020-09-23] MEDS: Apixaban 2.5 MG TAB PO SCH ×2 (09:42→20:52)
--- NOTE | 2020-09-23 12:27 | PRG ---
DATE OF SERVICE: 09/23/2020 SUBJECTIVE: Ms. Menon's status is unchanged. Continues to be in atrial fibrillation. OBJECTIVE: VITAL SIGNS: Blood pressure 124/64, pulse 81, temperature 98.6. Physical exam deferred due to COVID positive. IMPRESSION: 1. Atrial fibrillation. 2. COVID positive pneumonia. 3. Dementia. RECOMMENDATIONS: I did speak with Ms. Menon's daughter, Agustin, yesterday. She has been on anticoagulation therapy in the [facility] and like to continue. Would certainly seem reasonable, given her COVID positive pneumonia and history of atrial fibrillation. Given her age and weight, I have started Eliquis 2.5 mg she appears to be rate controlled. Dr. Marin will be on this weekend for any further questions. Job ID: [id number]
--- NOTE | 2020-09-23 12:27 | PDOC.HOSPP ---
- Subjective Encounter Date: 09/23/20 Encounter Time: 08:45 Subjective: Patient seen and examined bedside today, today patient has developed acute kidney injury, patient is lethargic and appears weak today, - Objective Vital Signs & Weight: Vital Signs (12 hours) Temp Pulse Resp BP Pulse Ox 09/23/20 11:42 98.6 F 81 18 124/64 92 L 09/23/20 08:30 98 F 83 18 158/63 H 93 L 09/23/20 04:48 98.2 F 86 16 119/61 95 Weight Admit Weight 91 lb 4.8 oz Weight 91 lb 4 oz I&O: 09/22/20 09/23/20 09/24/20 06:59 06:59 06:59 Intake Total 120 480 300 Output Total 500 600 Balance -380 -120 300 Result Diagrams: 09/23/20 04:25 09/23/20 04:25 EKG Reviewed by me: Yes Hospitalist ROS - Review of Systems ROS unobtainable: due to mental status - Medication Medications: Active Medications Generic Name Dose Route Start Last Admin Trade Name Freq PRN Reason Stop Dose Admin Acetaminophen 650 mg 09/20/20 14:16 09/20/20 18:19 Acetaminophen 650 Mg Suppository [place] 650 mg Q4H PRN Administration Headache/Fever/Mild Pain (1-3) Albuterol Sulfate 2 puff 09/20/20 18:30 09/23/20 11:13 Albuterol 200 Puff (6.7gm Inhaler) INH 2 puff TID-RT CHANDNI Administration Apixaban 2.5 mg 09/23/20 09:00 09/23/20 09:42 Apixaban 2.5 Mg Tab PO 2.5 mg BID CHANDNI Administration Ascorbic Acid 1,000 mg 09/22/20 09:00 09/23/20 09:41 Ascorbic Acid 500 Mg Chewable Tablet PO 1,000 mg DAILY CHANDNI Administration Aspirin 81 mg 09/22/20 09:00 09/23/20 09:34 Aspirin 81 Mg Enteric Coated Tablet PO 81 mg DAILY CHANDNI Administration Cholecalciferol 1,000 units 09/22/20 09:00 09/23/20 09:34 Cholecalciferol 1,000 Units (25 Mcg) Tab PO 1,000 units DAILY CHANDNI Administration Cyanocobalamin 1,000 mcg 09/22/20 09:00 09/23/20 09:34 Cyanocobalamin (Vitamin B-12) 1,000 Mcg Tab PO 1,000 mcg DAILY CHANDNI Administration Digoxin 0.125 mg 09/21/20 09:00 09/23/20 09:35 Digoxin 0.125 Mg Tab PO 0.125 mg DAILY CHANDNI Administration Folic Acid 1 mg 09/22/20 09:00 09/23/20 09:35 Folic Acid 1 Mg Tab PO 1 mg DAILY CHANDNI Administration Potassium Chloride/Dextrose/Sod Cl 1,000 mls @ 75 mls/hr 09/23/20 09:00 09/23/20 11:13 D5 1/2 Ns W/20 Meq Kcl IV 09/23/20 22:19 Not Given .[id number] CHANDNI Multivitamins 10 ml/ Potassium 1,010 mls @ 75 mls/hr 09/23/20 09:45 09/23/20 11:13 Chloride/Dextrose/Sod Cl IV 09/23/20 23:12 1,010 mls .[id number] CHANDNI Administration Latanoprost 1 drop 09/21/20 21:00 09/22/20 21:30 Latanoprost 0.005% Ophth Soln 2.5 Ml Bottle EA EYE 1 drop HS CHANDNI Administration Magnesium Oxide 400 mg 09/22/20 09:00 09/23/20 09:35 Magnesium Oxide 400 Mg Tab PO 400 mg DAILY CHANDNI Administration Metoprolol Succinate 75 mg 09/23/20 09:00 09/23/20 09:35 Metoprolol Succinate Xl 50 Mg Tab PO 75 mg DAILY CHANDNI Administration Pantoprazole Sodium 40 mg 09/22/20 09:00 09/23/20 09:36 Pantoprazole 40 Mg Tab PO 40 mg DAILY CHANDNI Administration Polyethylene Glycol 17 gm 09/21/20 09:00 09/23/20 09:36 Polyethylene Glycol 3350 17 Gm Packet PO Not Given DAILY CHANDNI Sodium Chloride 10 ml 09/20/20 14:16 09/23/20 11:14 Flush - Normal Saline 10 Ml Syringe IVF 10 ml PRN PRN Administration Saline Flush Spironolactone 25 mg 09/22/20 08:00 09/23/20 09:34 Spironolactone 25 Mg Tab PO 25 mg QAM-WM CHANDNI Administration Vitamin E 400 units 09/22/20 09:00 09/23/20 09:37 Vitamin E 400 Units Cap PO 400 units DAILY CHANDNI Administration Zinc Sulfate 220 mg 09/22/20 09:00 09/23/20 09:36 Zinc Sulfate 220 Mg Cap PO 220 mg DAILY [facility] Administration Hospitalist Exam Vitals: Vital Signs (12 hours) Temp Pulse Resp BP Pulse Ox 09/23/20 11:42 98.6 F 81 18 124/64 92 L 09/23/20 08:30 98 F 83 18 158/63 H 93 L 09/23/20 04:48 98.2 F 86 16 119/61 95 Weight Admit Weight 91 lb 4.8 oz Weight 91 lb 4 oz General Appearance: NAD, ill appearing Eye: PERRL, anicteric sclera ENT: normocephalic atraumatic, no oropharyngeal lesions Neck: supple, symmetric, no JVD, no thyromegaly Heart: no gallops, no rubs, irregular Respiratory: no wheezes, no rales, no ronchi Gastrointestinal: soft, non-tender, non-distended, normal bowel sounds Extremities: no clubbing, no edema Skin: normal turgor Neurological: no new deficit Musculoskeletal: normal tone, generalized weakness, diffuse muscle atrophy Psychiatric: normal affect, not oriented Hosp A/P (1) Acute kidney failure Status: Acute (2) Acute on chronic congestive heart failure Code(s): I50.9 - HEART FAILURE, UNSPECIFIED Status: Acute Qualifiers: Heart failure type: unspecified Qualified Code(s): I50.9 - Heart failure, unspecified (3) COVID-19 Code(s): U07.1 - COVID-19 Status: Acute (4) Elevated troponin Code(s): R77.8 - OTHER SPECIFIED ABNORMALITIES OF PLASMA PROTEINS Status: Acute (5) Protein-calorie malnutrition, moderate Code(s): E44.0 - MODERATE PROTEIN-CALORIE MALNUTRITION Status: Chronic (6) Paroxysmal atrial fibrillation Code(s): I48.0 - PAROXYSMAL ATRIAL FIBRILLATION Status: Chronic (7) Anxiety and depression Code(s): F41.9 - ANXIETY DISORDER, UNSPECIFIED; F32.9 - MAJOR DEPRESSIVE DISORDER, SINGLE EPISODE, UNSPECIFIED Status: Chronic (8) Glaucoma Code(s): H40.9 - UNSPECIFIED GLAUCOMA Status: Chronic (9) Dementia Code(s): F03.90 - UNSPECIFIED DEMENTIA WITHOUT BEHAVIORAL DISTURBANCE Status: Chronic Qualifiers: Dementia type: Alzheimer's - Plan old records reviewed/req Discontinue Lasix We will start dextrose with half-normal saline NS with KCl at 100 mL/h for 1 L, We will repeat labs tomorrow Continue medication as ordered, We will repeat labs tomorrow and if creatinine is better than we will consider d ischarge possibly tomorrow to skilled nursing, Continue low-dose Eliquis considering risk and benefit,
[2020-09-23] MEDS: Latanoprost 0.005% Ophth Soln 2.5 ml Bottle EA EYE SCH (20:52)
[2020-09-24 04:43] LABS: #Eosinphils 0.1 thou/uL (0.0-0.7); #Lymphocytes 1.4 thou/uL (1.20-3.40); %Basophils 0.1 % (0.0-1.0); %Eosinophils 0.6 % (0.0-10.0); %Lymphocytes 8.1 % (21.0-51.0); %Monocytes 5.8 % (0.0-10.0); %Neutrophils 85.5 % (42.0-75.0); Hemoglobin 10.3 g/dL (12.0-16.0); Mean Corpuscular HGB CONC 33.1 g/dL (32.0-36.0); Mean Corpuscular Hemoglobin 31.3 pg (27.0-31.0); Mean Corpuscular Volume 94.7 fL (78.0-98.0); Platelet Count 104 thou/uL (130-400); RBC Distribution Width 15.4 % (11.5-14.5); Red Blood Cell (RBC) Count 3.31 mill/uL (4.20-5.40); White Blood Cell (WBC) Count 17.5 thou/uL (4.8-10.8)
[2020-09-24 05:02] LABS: Anion Gap 16 mmol/L (10-20); BUN (Urea Nitrogen) 58 mg/dL (9.8-20.1); Calc. Creatinine Clearance 10 mL/min (70-130); Calcium 8.7 mg/dL (7.8-10.44); Carbon Dioxide 23 mmol/L (23-31); Chloride 104 mmol/L (98-107); Glucose 123 mg/dL (83-110); Potassium 4.2 mmol/L (3.5-5.1); Sodium 139 mmol/L (136-145)
[2020-09-24] MEDS: Albuterol 200 PUFF (6.7GM INHALER) INH SCH ×3 (05:51→19:41)
[2020-09-24] MEDS ORDERED: Dextrose 5 % And 0.9 % NaCl 1,000 ML IV SCH (08:45)
[2020-09-24] MEDS: Amlodipine 5 MG TAB PO SCH (09:00)
[2020-09-24] MEDS: Magnesium Oxide 400 MG TAB PO SCH (09:01)
[2020-09-24] MEDS: Digoxin 0.125 MG TAB PO SCH (09:01)
[2020-09-24] MEDS: Ascorbic Acid 500 mg Chewable Tablet PO SCH (09:01)
[2020-09-24] MEDS: Aspirin 81 mg Enteric Coated Tablet PO SCH (09:01)
[2020-09-24] MEDS: Apixaban 2.5 MG TAB PO SCH ×2 (09:01→21:01)
[2020-09-24] MEDS: Folic Acid 1 MG TAB PO SCH (09:01)
[2020-09-24] MEDS: Vitamin E 400 UNITS CAP PO SCH (09:01)
[2020-09-24] MEDS: Polyethylene Glycol 3350 17 GM Packet PO SCH (09:02)
[2020-09-24] MEDS: Zinc Sulfate 220 MG CAP PO SCH (09:02)
[2020-09-24] MEDS: Cyanocobalamin (Vitamin B-12) 1,000 MCG TAB PO SCH (09:02)
[2020-09-24] MEDS: Cholecalciferol 1,000 UNITS (25 MCG) TAB PO SCH (09:02)
[2020-09-24] MEDS: Spironolactone 25 MG TAB PO SCH (09:46)
--- NOTE | 2020-09-24 11:28 | PDOC.HOSPP ---
- Subjective Encounter Date: 09/24/20 Encounter Time: 09:10 Subjective: Patient seen and examined. Patient has elevated creatinine today, patient has no new complaint, she is on room air, - Objective Vital Signs & Weight: Vital Signs (12 hours) Temp Pulse Resp BP Pulse Ox 09/24/20 08:00 97.3 F L 132 H 20 145/72 H 98 09/24/20 03:33 98.2 F 85 14 166/77 H 98 Weight Admit Weight 91 lb 4.8 oz Weight 91 lb I&O: 09/23/20 09/24/20 09/25/20 06:59 06:59 06:59 Intake Total 480 1040 Output Total 600 Balance -120 1040 Result Diagrams: 09/24/20 04:09 09/24/20 04:09 EKG Reviewed by me: Yes Hospitalist ROS - Review of Systems ROS unobtainable: due to mental status - Medication Medications: Active Medications Generic Name Dose Route Start Last Admin Trade Name Freq PRN Reason Stop Dose Admin Acetaminophen 650 mg 09/20/20 14:16 09/23/20 23:44 Acetaminophen 325 Mg Tab PO 650 mg Q4H PRN Administration Headache/Fever/Mild Pain (1-3) Acetaminophen 650 mg 09/20/20 14:16 09/20/20 18:19 Acetaminophen 650 Mg Suppository [place] 650 mg Q4H PRN Administration Headache/Fever/Mild Pain (1-3) Albuterol Sulfate 2 puff 09/20/20 18:30 09/24/20 05:51 Albuterol 200 Puff (6.7gm Inhaler) INH 2 puff TID-RT CHANDNI Administration Amlodipine Besylate 5 mg 09/24/20 09:00 09/24/20 09:00 Amlodipine 5 Mg Tab PO 5 mg DAILY CHANDNI Administration Apixaban 2.5 mg 09/23/20 09:00 09/24/20 09:01 Apixaban 2.5 Mg Tab PO 2.5 mg BID CHANDNI Administration Ascorbic Acid 1,000 mg 09/22/20 09:00 09/24/20 09:01 Ascorbic Acid 500 Mg Chewable Tablet PO 1,000 mg DAILY CHANDNI Administration Aspirin 81 mg 09/22/20 09:00 09/24/20 09:01 Aspirin 81 Mg Enteric Coated Tablet PO 81 mg DAILY CHANDNI Administration Cholecalciferol 1,000 units 09/22/20 09:00 09/24/20 09:02 Cholecalciferol 1,000 Units (25 Mcg) Tab PO 1,000 units DAILY CHANDNI Administration Cyanocobalamin 1,000 mcg 09/22/20 09:00 09/24/20 09:02 Cyanocobalamin (Vitamin B-12) 1,000 Mcg Tab PO 1,000 mcg DAILY CHANDNI Administration Digoxin 0.125 mg 09/21/20 09:00 09/24/20 09:01 Digoxin 0.125 Mg Tab PO 0.125 mg DAILY CHANDNI Administration Folic Acid 1 mg 09/22/20 09:00 09/24/20 09:01 Folic Acid 1 Mg Tab PO 1 mg DAILY CHANDNI Administration Dextrose/Sodium Chloride 1,000 mls @ 75 mls/hr 09/24/20 08:45 09/24/20 09:00 D5 0.9% Ns IV 1,000 mls .[id number] CHANDNI Administration Latanoprost 1 drop 09/21/20 21:00 09/23/20 20:52 Latanoprost 0.005% Ophth Soln 2.5 Ml Bottle EA EYE 1 drop HS CHANDNI Administration Magnesium Oxide 400 mg 09/22/20 09:00 09/24/20 09:01 Magnesium Oxide 400 Mg Tab PO 400 mg DAILY CHANDNI Administration Metoprolol Succinate 75 mg 09/23/20 09:00 09/24/20 09:01 Metoprolol Succinate Xl 50 Mg Tab PO 75 mg DAILY CHANDNI Administration Pantoprazole Sodium 40 mg 09/22/20 09:00 09/24/20 09:01 Pantoprazole 40 Mg Tab PO 40 mg DAILY CHANDNI Administration Polyethylene Glycol 17 gm 09/21/20 09:00 09/24/20 09:02 Polyethylene Glycol 3350 17 Gm Packet PO Not Given DAILY CHANDNI Sodium Chloride 10 ml 09/20/20 14:16 09/23/20 11:14 Flush - Normal Saline 10 Ml Syringe IVF 10 ml PRN PRN Administration Saline Flush Vitamin E 400 units 09/22/20 09:00 09/24/20 09:01 Vitamin E 400 Units Cap PO 400 units DAILY CHANDNI Administration Zinc Sulfate 220 mg 09/22/20 09:00 09/24/20 09:02 Zinc Sulfate 220 Mg Cap PO 220 mg DAILY CHANDNI Administration Hospitalist Exam Vitals: Vital Signs (12 hours) Temp Pulse Resp BP Pulse Ox 09/24/20 08:00 97.3 F L 132 H 20 145/72 H 98 09/24/20 03:33 98.2 F 85 14 166/77 H 98 Weight Admit Weight 91 lb 4.8 oz Weight 91 lb General Appearance: NAD, ill appearing Eye: PERRL, anicteric sclera ENT: normocephalic atraumatic, no oropharyngeal lesions Neck: supple, symmetric, no JVD Heart: no murmur, no gallops, no rubs, irregular Respiratory: no wheezes, no rales, no ronchi Gastrointestinal: soft, non-tender, non-distended, normal bowel sounds Extremities: no clubbing, no edema Skin: normal turgor, no lesions Neurological: no new deficit Musculoskeletal: generalized weakness, diffuse muscle atrophy Psychiatric: normal affect, normal behavior, not oriented Hosp A/P (1) Acute kidney failure Status: Acute (2) Acute on chronic congestive heart failure Code(s): I50.9 - HEART FAILURE, UNSPECIFIED Status: Acute Qualifiers: Heart failure type: unspecified Qualified Code(s): I50.9 - Heart failure, unspecified (3) COVID-19 Code(s): U07.1 - COVID-19 Status: Acute (4) Elevated troponin Code(s): R77.8 - OTHER SPECIFIED ABNORMALITIES OF PLASMA PROTEINS Status: Acute (5) Protein-calorie malnutrition, moderate Code(s): E44.0 - MODERATE PROTEIN-CALORIE MALNUTRITION Status: Chronic (6) Paroxysmal atrial fibrillation Code(s): I48.0 - PAROXYSMAL ATRIAL FIBRILLATION Status: Chronic (7) Anxiety and depression Code(s): F41.9 - ANXIETY DISORDER, UNSPECIFIED; F32.9 - MAJOR DEPRESSIVE DISORD ER, SINGLE EPISODE, UNSPECIFIED Status: Chronic (8) Glaucoma Code(s): H40.9 - UNSPECIFIED GLAUCOMA Status: Chronic (9) Dementia Code(s): F03.90 - UNSPECIFIED DEMENTIA WITHOUT BEHAVIORAL DISTURBANCE Status: Chronic Qualifiers: Dementia type: Alzheimer's - Plan old records reviewed/req Patient has elevated creatinine, will continue IV fluid today, We will get renal ultrasound We will repeat labs tomorrow Patient is not stable for discharge Continue current medication and nutritional support
--- NOTE | 2020-09-24 15:12 | ULT ---
BILATERAL RENAL ULTRASOUND: Date: 09/24/2020 COMPARISON: CTA chest dated 09/20/2020. HISTORY: Acute kidney injury. TECHNIQUE: Multiplanar Gonsales scale and color Doppler images were obtained in a renal ultrasound. FINDINGS: There are bilateral renal cysts measuring up to 3.8 cm in size. Mild left and moderate right hydronep hrosis are seen in the kidneys. Kidneys have slight increased echogenicity. The kidneys measure 10.7 and 9.5 cm in length on the right and left, respectively. There is distention of the urinary bladder. IMPRESSION: 1. Bilateral hydronephrosis. This may be secondary to vesicoureteral reflux secondary to a distended urinary bladder. 2. Bilateral renal cysts. POS: EAA
[2020-09-24] MEDS ORDERED: Furosemide 20 MG/2 ML VIAL SLOW IVP SCH (18:00)
[2020-09-24 20:56] LABS: Hemoglobin 10.7 g/dL (12.0-16.0); Platelet Count 120 thou/uL (130-400)
[2020-09-24] MEDS: Latanoprost 0.005% Ophth Soln 2.5 ml Bottle EA EYE SCH (21:01)
[2020-09-25 05:09] LABS: Anion Gap 14 mmol/L (10-20); BUN (Urea Nitrogen) 63 mg/dL (9.8-20.1); Calc. Creatinine Clearance 9 mL/min (70-130); Calcium 8.6 mg/dL (7.8-10.44); Carbon Dioxide 26 mmol/L (23-31); Chloride 109 mmol/L (98-107); Glucose 100 mg/dL (83-110); Sodium 145 mmol/L (136-145)
[2020-09-25] MEDS: Albuterol 200 PUFF (6.7GM INHALER) INH SCH ×4 (06:15→18:30)
[2020-09-25 06:30] LABS: Band 7 % (5-11); Hemoglobin 10.8 g/dL (12.0-16.0); Lymphocytes 14 % (21-51); MDiff Complete? YES; Mean Corpuscular HGB CONC 31.8 g/dL (32.0-36.0); Mean Corpuscular Hemoglobin 29.4 pg (27.0-31.0); Mean Corpuscular Volume 92.4 fL (78.0-98.0); Mean Platelet Volume 11.8 fL (7.4-10.4); Monocytes 6 % (0-10); Neutrophil 73 % (42-75); Platelet Count 129 thou/uL (130-400); RBC Distribution Width 15.6 % (11.5-14.5); Red Blood Cell (RBC) Count 3.67 mill/uL (4.20-5.40); White Blood Cell (WBC) Count 14.1 thou/uL (4.8-10.8)
[2020-09-25] MEDS: Folic Acid 1 MG TAB PO SCH (08:32)
[2020-09-25] MEDS: Amlodipine 5 MG TAB PO SCH (08:32)
[2020-09-25] MEDS: Cholecalciferol 1,000 UNITS (25 MCG) TAB PO SCH (08:33)
[2020-09-25] MEDS: Magnesium Oxide 400 MG TAB PO SCH (08:33)
[2020-09-25] MEDS: Ascorbic Acid 500 mg Chewable Tablet PO SCH (08:33)
[2020-09-25] MEDS: Digoxin 0.125 MG TAB PO SCH (08:33)
[2020-09-25] MEDS: Zinc Sulfate 220 MG CAP PO SCH (08:34)
[2020-09-25] MEDS: Aspirin 81 mg Enteric Coated Tablet PO SCH (08:34)
[2020-09-25] MEDS: Vitamin E 400 UNITS CAP PO SCH (08:34)
[2020-09-25] MEDS: Cyanocobalamin (Vitamin B-12) 1,000 MCG TAB PO SCH (08:34)
--- NOTE | 2020-09-25 10:19 | PDOC.HOSPP ---
- Subjective Encounter Date: 09/25/20 Encounter Time: 08:50 Subjective: Patient seen and examined bedside today, patient had urinary retention so she required a Rodriguez catheter, I spoke with the patient's family member and updated about test results - Objective Vital Signs & Weight: Vital Signs (12 hours) Temp Pulse Resp BP Pulse Ox 09/25/20 08:33 86 09/25/20 08:32 86 09/25/20 07:15 98.2 F 88 16 174/70 H 92 L 09/25/20 04:34 97.5 F L 86 16 134/58 L 92 L 09/24/20 23:19 77 14 130/60 100 Weight Admit Weight 91 lb 4.8 oz Weight 91 lb I&O: 09/24/20 09/25/20 09/26/20 06:59 06:59 06:59 Intake Total 1040 695 Output Total 1200 Balance 1040 -505 Result Diagrams: 09/25/20 04:07 09/25/20 04:07 Radiology Reviewed by me: Yes EKG Reviewed by me: Yes Hospitalist ROS - Review of Systems ROS unobtainable: due to mental status - Medication Medications: Active Medications Generic Name Dose Route Start Last Admin Trade Name Freq PRN Reason Stop Dose Admin Acetaminophen 650 mg 09/20/20 14:16 09/23/20 23:44 Acetaminophen 325 Mg Tab PO 650 mg Q4H PRN Administration Headache/Fever/Mild Pain (1-3) Acetaminophen 650 mg 09/20/20 14:16 09/20/20 18:19 Acetaminophen 650 Mg Suppository OR 650 mg Q4H PRN Administration Headache/Fever/Mild Pain (1-3) Albuterol Sulfate 2 puff 09/20/20 18:30 09/25/20 06:15 Albuterol 200 Puff (6.7gm Inhaler) INH 2 puff TID-RT CHANDNI Administration Amlodipine Besylate 5 mg 09/24/20 09:00 09/25/20 08:32 Amlodipine 5 Mg Tab PO 5 mg DAILY CHANDNI Administration Apixaban 2.5 mg 09/23/20 09:00 09/24/20 21:01 Apixaban 2.5 Mg Tab PO 2.5 mg BID CHANDNI Administration Ascorbic Acid 1,000 mg 09/22/20 09:00 09/25/20 08:33 Ascorbic Acid 500 Mg Chewable Tablet PO 1,000 mg DAILY CHANDNI Administration Aspirin 81 mg 09/22/20 09:00 09/25/20 08:34 Aspirin 81 Mg Enteric Coated Tablet PO 81 mg DAILY CHANDNI Administration Cholecalciferol 1,000 units 09/22/20 09:00 09/25/20 08:33 Cholecalciferol 1,000 Units (25 Mcg) Tab PO 1,000 units DAILY CHANDNI Administration Cyanocobalamin 1,000 mcg 09/22/20 09:00 09/25/20 08:34 Cyanocobalamin (Vitamin B-12) 1,000 Mcg Tab PO 1,000 mcg DAILY CHANDNI Administration Digoxin 0.125 mg 09/21/20 09:00 09/25/20 08:33 Digoxin 0.125 Mg Tab PO 0.125 mg DAILY CHANDNI Administration Folic Acid 1 mg 09/22/20 09:00 09/25/20 08:32 Folic Acid 1 Mg Tab PO 1 mg DAILY CHANDNI Administration Latanoprost 1 drop 09/21/20 21:00 09/24/20 21:01 Latanoprost 0.005% Ophth Soln 2.5 Ml Bottle EA EYE 1 drop HS [facility] Administration Magnesium Oxide 400 mg 09/22/20 09:00 09/25/20 08:33 Magnesium Oxide 400 Mg Tab PO 400 mg DAILY CHANDNI Administration Metoprolol Succinate 75 mg 09/23/20 09:00 09/25/20 08:32 Metoprolol Succinate Xl 50 Mg Tab PO 75 mg DAILY CHANDNI Administration Pantoprazole Sodium 40 mg 09/22/20 09:00 09/25/20 08:33 Pantoprazole 40 Mg Tab PO 40 mg DAILY CHANDNI Administration Polyethylene Glycol 17 gm 09/21/20 09:00 09/24/20 09:02 Polyethylene Glycol 3350 17 Gm Packet PO Not Given DAILY CHANDNI Sodium Chloride 10 ml 09/20/20 14:16 09/23/20 11:14 Flush - Normal Saline 10 Ml Syringe IVF 10 ml PRN PRN Administration Saline Flush Vitamin E 400 units 09/22/20 09:00 09/25/20 08:34 Vitamin E 400 Units Cap PO 400 units DAILY CHANDNI Administration Zinc Sulfate 220 mg 09/22/20 09:00 09/25/20 08:34 Zinc Sulfate 220 Mg Cap PO 220 mg DAILY CHANDNI Administration Hospitalist Exam Vitals: Vital Signs (12 hours) Temp Pulse Resp BP Pulse Ox 09/25/20 08:33 86 09/25/20 08:32 86 09/25/20 07:15 98.2 F 88 16 174/70 H 92 L 09/25/20 04:34 97.5 F L 86 16 134/58 L 92 L 09/24/20 23:19 77 14 130/60 100 Weight Admit Weight 91 lb 4.8 oz Weight 91 lb General Appearance: NAD, ill appearing Eye: PERRL, anicteric sclera ENT: normocephalic atraumatic, no oropharyngeal lesions Neck: supple, symmetric, no JVD, no thyromegaly Heart: no murmur, no gallops, no rubs Respiratory: no wheezes, no rales, no ronchi Gastrointestinal: soft, non-tender, non-distended, normal bowel sounds Gastrointestinal - other findings: Rodriguez catheter in place Extremities: no clubbing, no edema Skin: normal turgor, no lesions Neurological: no focal deficits Musculoskeletal: generalized weakness, diffuse muscle atrophy Psychiatric: not oriented Hosp A/P (1) Bilateral hydronephrosis Code(s): N13.30 - UNSPECIFIED HYDRONEPHROSIS Status: Acute (2) Acute urinary retention Code(s): R33.8 - OTHER RETENTION OF URINE Status: Acute (3) Acute kidney failure Status: Acute (4) Acute on chronic congestive heart failure Code(s): I50.9 - HEART FAILURE, UNSPECIFIED Status: Acute Qualifiers: Heart failure type: unspecified Qualified Code(s): I50.9 - Heart failure, unspecified (5) COVID-19 Code(s): U07.1 - COVID-19 Status: Acute (6) Elevated troponin Code(s): R77.8 - OTHER SPECIFIED ABNORMALITIES OF PLASMA PROTEINS Status: Acute (7) Protein-calorie malnutrition, moderate Code(s): E44.0 - MODERATE PROTEIN-CALORIE MALNUTRITION Status: Chronic (8) Paroxysmal atrial fibrillation Code(s): I48.0 - PAROXYSMAL ATRIAL FIBRILLATION Status: Chronic (9) Anxiety and depression Code(s): F41.9 - ANXIETY DISORDER, UNSPECIFIED; F32.9 - MAJOR DEPRESSIVE DISORDER, SINGLE EPISODE, UNSPECIFIED Status: Chronic (10) Glaucoma Code(s): H40.9 - UNSPECIFIED GLAUCOMA Status: Chronic (11) Dementia Code(s): F03.90 - UNSPECIFIED DEMENTIA WITHOUT BEHAVIORAL DISTURBANCE Status: Chronic Qualifiers: Dementia type: Alzheimer's - Plan old records reviewed/req, plan discussed w/ family Continue Rodriguez catheter, We will monitor patient's oral intake, if patient has not expected oral intake then will start gentle IV fluid, this patient is very sensitive to fluid as well, she is becoming fluid overloaded, Her creatinine is still going up, hoping that after Rodriguez catheter she should improve her creatinine, will encourage her oral intake Continue Dimitri, I spoke with the patient's family member and updated about plan of care Continue nutritional support We will repeat labs tomorrow
[2020-09-25] MEDS: Polyethylene Glycol 3350 17 GM Packet PO SCH (10:24)
[2020-09-25] MEDS: Apixaban 2.5 MG TAB PO SCH ×2 (11:09→21:12)
[2020-09-25] MEDS: Latanoprost 0.005% Ophth Soln 2.5 ml Bottle EA EYE SCH (21:12)
[2020-09-26] MEDS ORDERED: Cholecalciferol 1,000 UNITS (25 MCG) TAB ONE (12:41)
[2020-09-26] MEDS ORDERED: Vitamin E 400 UNITS CAP ONE (12:41)
[2020-09-26] MEDS ORDERED: Zinc Sulfate 220 MG CAP ONE (12:41)
[2020-09-26] MEDS ORDERED: Apixaban 5 MG TAB ONE (12:41)
[2020-09-26] MEDS ORDERED: Cyanocobalamin 1000 MCG/ML VIAL ONE (12:41)
[2020-09-26] MEDS ORDERED: Amlodipine 5 MG TAB ONE (12:41)
[2020-09-26] MEDS ORDERED: Folic Acid 1 MG TAB ONE (12:41)
[2020-09-26] MEDS ORDERED: Magnesium Oxide 400 MG TAB PO ONE (12:41)
[2020-09-26] MEDS ORDERED: Aspirin Chewable 81 MG TAB ONE (12:41)
[2020-09-26] MEDS ORDERED: Digoxin 0.125 MG TAB ONE (12:41)
[2020-09-26] MEDS ORDERED: Ascorbic Acid 500 mg Chewable Tablet ONE (12:41)
[2020-09-26] MEDS ORDERED: Cyanocobalamin (Vitamin B-12) 1,000 MCG TAB ONE (12:44)
--- NOTE | 2020-09-26 12:51 | PDOC.HOSPP ---
- Subjective Encounter Date: 09/26/20 Encounter Time: 08:45 Subjective: Patient seen and examined. No overnight events - Objective Vital Signs & Weight: Vital Signs (12 hours) Temp Pulse Resp BP Pulse Ox 09/26/20 08:45 97.7 F 74 16 141/60 H 95 Weight Admit Weight 91 lb 4.8 oz Weight 91 lb I&O: 09/25/20 09/26/20 09/27/20 06:59 06:59 06:59 Intake Total 695 Output Total 1200 Balance -505 Result Diagrams: 09/25/20 04:07 09/25/20 04:07 Hospitalist ROS - Review of Systems ROS unobtainable: due to mental status - Medication Medications: Active Medications Generic Name Dose Route Start Last Admin Trade Name Freq PRN Reason Stop Dose Admin Acetaminophen 650 mg 09/20/20 14:16 09/23/20 23:44 Acetaminophen 325 Mg Tab PO 650 mg Q4H PRN Administration Headache/Fever/Mild Pain (1-3) Acetaminophen 650 mg 09/20/20 14:16 09/20/20 18:19 Acetaminophen 650 Mg Suppository ID 650 mg Q4H PRN Administration Headache/Fever/Mild Pain (1-3) Albuterol Sulfate 2 puff 09/20/20 18:30 09/25/20 18:30 Albuterol 200 Puff (6.7gm Inhaler) INH 2 puff TID-RT CHANDNI Administration Amlodipine Besylate 5 mg 09/24/20 09:00 09/25/20 08:32 Amlodipine 5 Mg Tab PO 5 mg DAILY CHANDNI Administration Apixaban 2.5 mg 09/23/20 09:00 09/25/20 21:12 Apixaban 2.5 Mg Tab PO 2.5 mg BID CHANDNI Administration Ascorbic Acid 1,000 mg 09/22/20 09:00 09/25/20 08:33 Ascorbic Acid 500 Mg Chewable Tablet PO 1,000 mg DAILY CHANDNI Administration Aspirin 81 mg 09/22/20 09:00 09/25/20 08:34 Aspirin 81 Mg Enteric Coated Tablet PO 81 mg DAILY CHANDNI Administration Cholecalciferol 1,000 units 09/22/20 09:00 09/25/20 08:33 Cholecalciferol 1,000 Units (25 Mcg) Tab PO 1,000 units DAILY CHANDNI Administration Cyanocobalamin 1,000 mcg 09/22/20 09:00 09/25/20 08:34 Cyanocobalamin (Vitamin B-12) 1,000 Mcg Tab PO 1,000 mcg DAILY CHANDNI Administration Digoxin 0.125 mg 09/21/20 09:00 09/25/20 08:33 Digoxin 0.125 Mg Tab PO 0.125 mg DAILY CHANDNI Administration Folic Acid 1 mg 09/22/20 09:00 09/25/20 08:32 Folic Acid 1 Mg Tab PO 1 mg DAILY CHANDNI Administration Latanoprost 1 drop 09/21/20 21:00 09/25/20 21:12 Latanoprost 0.005% Ophth Soln 2.5 Ml Bottle EA EYE 1 drop HS CHANDNI Administration Magnesium Oxide 400 mg 09/22/20 09:00 09/25/20 08:33 Magnesium Oxide 400 Mg Tab PO 400 mg DAILY CHANDNI Administration Metoprolol Succinate 75 mg 09/23/20 09:00 09/25/20 08:32 Metoprolol Succinate Xl 50 Mg Tab PO 75 mg DAILY CHANDNI Administration Pantoprazole Sodium 40 mg 09/22/20 09:00 09/25/20 08:33 Pantoprazole 40 Mg Tab PO 40 mg DAILY CHANDNI Administration Polyethylene Glycol 17 gm 09/21/20 09:00 09/25/20 10:24 Polyethylene Glycol 3350 17 Gm Packet PO Not Given DAILY CHANDNI Sodium Chloride 10 ml 09/20/20 14:16 09/23/20 11:14 Flush - Normal Saline 10 Ml Syringe IVF 10 ml PRN PRN Administration Saline Flush Vitamin E 400 units 09/22/20 09:00 09/25/20 08:34 Vitamin E 400 Units Cap PO 400 units DAILY CHANDNI Administration Zinc Sulfate 220 mg 09/22/20 09:00 09/25/20 08:34 Zinc Sulfate 220 Mg Cap PO 220 mg DAILY CHANDNI Administration Hospitalist Exam Vitals: Vital Signs (12 hours) Temp Pulse Resp BP Pulse Ox 09/26/20 08:45 97.7 F 74 16 141/60 H 95 Weight Admit Weight 91 lb 4.8 oz Weight 91 lb General Appearance: NAD, awake alert Eye: PERRL, anicteric sclera ENT: normocephalic atraumatic, no oropharyngeal lesions Neck: supple, symmetric, no JVD Heart: no murmur, no gallops, no rubs Respiratory: no wheezes, no rales, no ronchi Gastrointestinal: soft, non-tender, non-distended, normal bowel sounds Extremities: no clubbing, no edema Skin: normal turgor, no lesions Musculoskeletal: generalized weakness, diffuse muscle atrophy Psychiatric: normal affect, normal behavior Hosp A/P (1) Bilateral hydronephrosis Code(s): N13.30 - UNSPECIFIED HYDRONEPHROSIS Status: Acute (2) Acute urinary retention Code(s): R33.8 - OTHER RETENTION OF URINE Status: Acute (3) Acute kidney failure Status: Acute (4) Acute on chronic congestive heart failure Code(s): I50.9 - HEART FAILURE, UNSPECIFIED Status: Acute Qualifiers: Heart failure type: unspecified Qualified Code(s): I50.9 - Heart failure, unspecified (5) COVID-19 Code(s): U07.1 - COVID-19 Status: Acute (6) Elevated troponin Code(s): R77.8 - OTHER SPECIFIED ABNORMALITIES OF PLASMA PROTEINS Status: Acute (7) Protein-calorie malnutrition, moderate Code(s): E44.0 - MODERATE PROTEIN-CALORIE MALNUTRITION Status: Chronic (8) Paroxysmal atrial fibrillation Code(s): I48.0 - PAROXYSMAL ATRIAL FIBRILLATION Status: Chronic (9) Anxiety and depression Code(s): F41.9 - ANXIETY DISORDER, UNSPECIFIED; F32.9 - MAJOR DEPRESSIVE DISORDER, SINGLE EPISODE, UNSPECIFIED Status: Chronic (10) Glaucoma Code(s): H40.9 - UNSPECIFIED GLAUCOMA Status: Chronic (11) Dementia Code(s): F03.90 - UNSPECIFIED DEMENTIA WITHOUT BEHAVIORAL DISTURBANCE Status: Chronic Qualifiers: Dementia type: Alzheimer's - Plan old records reviewed/req Continue Rodriguez catheter, continue low dose elliquis encourage oral intake medication reviewed and continue to provide symptomatic care Continue nutritional support We will repeat labs tomorrow
--- NOTE | 2020-09-26 14:03 | PQF ---
CLINICAL DOCUMENTATION CLARIFICATION FORM: Dear Dr. Solis Date: 09/26/2020 Please exercise your independent, professional judgment in responding to the clarification form. Clinical indicators are provided on the bottom of this form for your review. Please check appropriate box(es) to clarify if the following diagnosis has been ruled in our ruled out: SEPSIS [ ] Ruled in diagnosis [ ] Continue to treat [ ] Resolved [ x ] Ruled out diagnosis [ ] Improving [ ] Cannot rule out diagnosis [ ] Other diagnosis [ ] Unable to determine In addition, please specify: Present on Admission (POA): [ ] Yes [ x ] No [ ] Unable to determine For continuity of documentation, please document condition throughout progress notes and discharge summary. Thank You. To be completed by CDI/Coding staff for physician review: CLINICAL INDICATORS - SIGNS / SYMPTOMS / LABS / RESULTS AND LOCATION IN MR *ER Record 09/20: VS: BP 160/83, pulse 104, resp. 19. Temp; 99.3, O2 sat 92 Room Air Doctor notes: Noted altered mental status. Pt has evidence of COVID-19 pneumonia *H&P 09/20 (Bartolome) HPI: sent in for altered mental status and fevers to 100.4. Lactic acid 1.9, WBC 12.9 A/P: RLL pneumonia with effusion Sepsis without septic shock. Pt meeting SIRS criteria with fever to 100.4, elevated respirations, Mild tachycardia and elevated WBC with source. *09/20 Consult (Jamil): HPI: X-ray shows bilateral pleural effusion, R > L. CT confirmed this. I see no infiltrates, nothing to suspect any febrile illness. Impression: CHF *09/21 Consult (Delvis) HPI. The pt developed ams after second COVID injection. Assessment: CHF, diastolic, chronic Chronic A Fib Positive COVID infection *09/25 pn (Irma) A/P: Acute on chronic CHF COVID-19 RISK FACTORS / RESULTS AND LOCATION IN MR H&P 09/21 (Bartolome) HPI: 89 yo with PMH hx A fib, HTN, severe Alzheimer's dementia. Recently admitted in July for fall which was significant for several left-sided rib fractures, and left sided hemothorax that was drained with CT. A/P: RLL pneumonia with effusion. Acute metabolic encephalopathy TREATMENTS / RESULTS AND LOCATION IN MR *Order 09/20-09/21: Meropenem 1 gm IV q6 hr *Order 09/20-09/21: Vancomycin HCL 750mg IV now *09/21 pn (Irma) Plan: Continue Lasix 20mg IV twice daily *09/22 pn (Irma): Plan: Reduce Lasix 20 mg IV daily Thank you, Freda Luo, RN, BSN [email or web address] This is a permanent part of the Medical Record [facility]
[2020-09-26] MEDS: Albuterol 200 PUFF (6.7GM INHALER) INH SCH ×3 (14:28→17:56)
[2020-09-26] MEDS: Ascorbic Acid 500 mg Chewable Tablet PO SCH (14:29)
[2020-09-26] MEDS: Amlodipine 5 MG TAB PO SCH (14:29)
[2020-09-26] MEDS: Cyanocobalamin (Vitamin B-12) 1,000 MCG TAB PO SCH (14:29)
[2020-09-26] MEDS: Aspirin 81 mg Enteric Coated Tablet PO SCH (14:29)
[2020-09-26] MEDS: Apixaban 2.5 MG TAB PO SCH ×2 (14:29→21:21)
[2020-09-26] MEDS: Cholecalciferol 1,000 UNITS (25 MCG) TAB PO SCH (14:29)
[2020-09-26] MEDS: Digoxin 0.125 MG TAB PO SCH (14:30)
[2020-09-26] MEDS: Polyethylene Glycol 3350 17 GM Packet PO SCH (14:30)
[2020-09-26] MEDS: Folic Acid 1 MG TAB PO SCH (14:30)
[2020-09-26] MEDS: Magnesium Oxide 400 MG TAB PO SCH (14:30)
[2020-09-26] MEDS: Vitamin E 400 UNITS CAP PO SCH (14:30)
[2020-09-26] MEDS: Zinc Sulfate 220 MG CAP PO SCH (14:30)
[2020-09-26 18:23] LABS: Anion Gap 15 mmol/L (10-20); BUN (Urea Nitrogen) 81 mg/dL (9.8-20.1); Calc. Creatinine Clearance 9 mL/min (70-130); Calcium 8.5 mg/dL (7.8-10.44); Carbon Dioxide 24 mmol/L (23-31); Chloride 111 mmol/L (98-107); Glucose 91 mg/dL (83-110); Potassium 4.1 mmol/L (3.5-5.1); Sodium 146 mmol/L (136-145)
[2020-09-26 18:58] LABS: Hemoglobin 10.1 g/dL (12.0-16.0); Mean Corpuscular HGB CONC 32.2 g/dL (32.0-36.0); Mean Corpuscular Hemoglobin 29.6 pg (27.0-31.0); Mean Platelet Volume 10.9 fL (7.4-10.4); Platelet Count 169 thou/uL (130-400); RBC Distribution Width 15.4 % (11.5-14.5); Red Blood Cell (RBC) Count 3.42 mill/uL (4.20-5.40); White Blood Cell (WBC) Count 9.9 thou/uL (4.8-10.8)
[2020-09-26 19:50] LABS: Band 3 % (5-11); Eosinophils 5 % (0-10); Lymphocytes 13 % (21-51); MDiff Complete? YES; Monocytes 3 % (0-10); Neutrophil 71 % (42-75); Ovalocytes SLIGHT = 2-5 cells (100X) (0-1/hpf); Platelet Morphology Comment Appears Adequate; Polychromasia SLIGHT = 2-3 cells (100X) (0-2/hpf); Reactive Lymphocytes 5 % (0-10); Schistocytes SLIGHT = 2-5 cells (100X) (0-1/hpf); Tear Drops SLIGHT = 2-5 cells (100X) (0-1/hpf)
[2020-09-26] MEDS: Latanoprost 0.005% Ophth Soln 2.5 ml Bottle EA EYE SCH (21:21)
[2020-09-26] MEDS ORDERED: Nortriptyline 10 MG CAP ONE (21:52)
[2020-09-27 04:35] LABS: #Basophils 0.1 thou/uL (0.0-0.2); #Eosinphils 0.3 thou/uL (0.0-0.7); #Monocytes 0.7 thou/uL (0.11-0.59); #Neutrophils 6.1 thou/uL (1.40-6.50); %Basophils 0.6 % (0.0-1.0); %Eosinophils 2.8 % (0.0-10.0); %Lymphocytes 21.6 % (21.0-51.0); %Monocytes 7.2 % (0.0-10.0); %Neutrophils 67.7 % (42.0-75.0); Hemoglobin 10.3 g/dL (12.0-16.0); Mean Corpuscular HGB CONC 32.3 g/dL (32.0-36.0); Mean Corpuscular Hemoglobin 29.8 pg (27.0-31.0); Mean Corpuscular Volume 92.1 fL (78.0-98.0); Platelet Count 207 thou/uL (130-400); RBC Distribution Width 15.4 % (11.5-14.5); Red Blood Cell (RBC) Count 3.47 mill/uL (4.20-5.40)
[2020-09-27 04:53] LABS: ALT (SGPT) 7 U/L (8-55); AST (SGOT) 16 U/L (5-34); Albumin 2.8 g/dL (3.4-4.8); Alkaline Phosphatase 48 U/L (40-110); Anion Gap 14 mmol/L (10-20); BUN (Urea Nitrogen) 72 mg/dL (9.8-20.1); Bilirubin, Total 0.6 mg/dL (0.2-1.2); Calc. Creatinine Clearance 8 mL/min (70-130); Calcium 8.7 mg/dL (7.8-10.44); Carbon Dioxide 26 mmol/L (23-31); Chloride 113 mmol/L (98-107); Globulin 2.5 g/dL (2.4-3.5); Glucose 107 mg/dL (83-110); Magnesium 2.6 mg/dL (1.6-2.6); Phosphorus 3.5 mg/dL (2.3-4.7); Potassium 3.8 mmol/L (3.5-5.1); Protein, Total 5.3 g/dL (5.8-8.1); Sodium 149 mmol/L (136-145)
[2020-09-27] MEDS: Albuterol 200 PUFF (6.7GM INHALER) INH SCH ×3 (07:48→18:27)
[2020-09-27] MEDS: Dextrose 5 %-0.45 % NaCl 1,000 ML IV SCH ×2 (07:48→22:08)
[2020-09-27] MEDS: Digoxin 0.125 MG TAB PO SCH (07:49)
[2020-09-27] MEDS: Magnesium Oxide 400 MG TAB PO SCH (07:49)
[2020-09-27] MEDS: Folic Acid 1 MG TAB PO SCH (07:49)
[2020-09-27] MEDS: Aspirin 81 mg Enteric Coated Tablet PO SCH (07:49)
[2020-09-27] MEDS: Amlodipine 5 MG TAB PO SCH (07:50)
[2020-09-27] MEDS: Ascorbic Acid 500 mg Chewable Tablet PO SCH (07:50)
[2020-09-27] MEDS: Vitamin E 400 UNITS CAP PO SCH (07:51)
[2020-09-27] MEDS: Polyethylene Glycol 3350 17 GM Packet PO SCH (07:51)
[2020-09-27] MEDS: Zinc Sulfate 220 MG CAP PO SCH (07:51)
[2020-09-27] MEDS: Cyanocobalamin (Vitamin B-12) 1,000 MCG TAB PO SCH (07:51)
[2020-09-27] MEDS: Cholecalciferol 1,000 UNITS (25 MCG) TAB PO SCH (07:51)
[2020-09-27] MEDS: Apixaban 2.5 MG TAB PO SCH ×2 (08:06→21:56)
[2020-09-27 10:45] LABS: Digoxin 2.61 ng/mL (0.8-2.0)
--- NOTE | 2020-09-27 11:05 | PRG ---
DATE OF SERVICE: 09/27/2020 SUBJECTIVE: Ms. Menon today had a 4-second pause. According to the nurse, she was symptomatic. She is currently on a beta-ananya therapy in addition to digoxin. She is COVID positive. PHYSICAL EXAMINATION: VITAL SIGNS: Blood pressure 149/64, pulse 70, temperature 97. Physical exam deferred. PERTINENT LABORATORY DATA: Hemoglobin 10.3, hematocrit 32, platelet count 207. Creatinine 2.7, down from 2.89. IMPRESSION: 1. COVID positive pneumonia. 2. Atrial fibrillation. 3. Recent pause. RECOMMENDATIONS: The patient is currently on a negative inotropic medication for heart rate management. Recommendation is to discontinue digoxin. Check digoxin level. Metoprolol has also been discontinued. May need to make further adjustments this afternoon or tomorrow morning. Heart rate is currently stable. No indication for pacemaker, given the patient is currently on negative inotropic support. If continues to have significant pauses, we would recommend low-dose Dobutrex. Job ID: [id number]
--- NOTE | 2020-09-27 11:15 | PDOC.HOSPP ---
- Subjective Encounter Date: 09/27/20 Encounter Time: 08:50 Subjective: This morning patient was having prolonged pause, patient has elevated digoxin level and she was also taking metoprolol, - Objective Vital Signs & Weight: Vital Signs (12 hours) Temp Pulse Resp BP Pulse Ox 09/27/20 08:43 70 149/64 H 96 09/27/20 08:27 98.7 F 79 12 122/56 L 94 L 09/27/20 04:00 97.6 F 74 16 138/65 95 09/27/20 00:00 97.8 F 84 16 108/58 L 95 Weight Admit Weight 91 lb 4.8 oz Weight 82 lb 11.2 oz I&O: 09/26/20 09/27/20 09/28/20 06:59 06:59 06:59 Intake Total 100 Output Total 600 Balance -500 Result Diagrams: 09/27/20 04:07 09/27/20 04:07 Hospitalist ROS - Review of Systems ROS unobtainable: due to mental status - Medication Medications: Active Medications Generic Name Dose Route Start Last Admin Trade Name Freq PRN Reason Stop Dose Admin Acetaminophen 650 mg 09/20/20 14:16 09/23/20 23:44 Acetaminophen 325 Mg Tab PO 650 mg Q4H PRN Administration Headache/Fever/Mild Pain (1-3) Acetaminophen 650 mg 09/20/20 14:16 09/20/20 18:19 Acetaminophen 650 Mg Suppository OR 650 mg Q4H PRN Administration Headache/Fever/Mild Pain (1-3) Albuterol Sulfate 2 puff 09/20/20 18:30 09/27/20 07:48 Albuterol 200 Puff (6.7gm Inhaler) INH 2 puff TID-RT CHANDNI Administration Amlodipine Besylate 5 mg 09/24/20 09:00 09/27/20 07:50 Amlodipine 5 Mg Tab PO 5 mg DAILY CHANDNI Administration Apixaban 2.5 mg 09/23/20 09:00 09/27/20 08:06 Apixaban 2.5 Mg Tab PO 2.5 mg BID CHANDNI Administration Ascorbic Acid 1,000 mg 09/22/20 09:00 09/27/20 07:50 Ascorbic Acid 500 Mg Chewable Tablet PO 1,000 mg DAILY CHANDNI Administration Aspirin 81 mg 09/22/20 09:00 09/27/20 07:49 Aspirin 81 Mg Enteric Coated Tablet PO 81 mg DAILY CHANDNI Administration Cholecalciferol 1,000 units 09/22/20 09:00 09/27/20 07:51 Cholecalciferol 1,000 Units (25 Mcg) Tab PO 1,000 units DAILY CHANDNI Administration Cyanocobalamin 1,000 mcg 09/22/20 09:00 09/27/20 07:51 Cyanocobalamin (Vitamin B-12) 1,000 Mcg Tab PO 1,000 mcg DAILY CHANDNI Administration Folic Acid 1 mg 09/22/20 09:00 09/27/20 07:49 Folic Acid 1 Mg Tab PO 1 mg DAILY CHANDNI Administration Dextrose/Sodium Chloride 1,000 mls @ 50 mls/hr 09/27/20 07:30 09/27/20 07:48 D5 1/2 Ns IV 1,000 mls .Q20H CHANDNI Administration Latanoprost 1 drop 09/21/20 21:00 09/26/20 21:21 Latanoprost 0.005% Ophth Soln 2.5 Ml Bottle EA EYE 1 drop HS CHANDNI Administration Magnesium Oxide 400 mg 09/22/20 09:00 09/27/20 07:49 Magnesium Oxide 400 Mg Tab PO 400 mg DAILY CHANDNI Administration Pantoprazole Sodium 40 mg 09/22/20 09:00 09/27/20 07:50 Pantoprazole 40 Mg Tab PO 40 mg DAILY CHANDNI Administration Polyethylene Glycol 17 gm 09/21/20 09:00 09/27/20 07:51 Polyethylene Glycol 3350 17 Gm Packet PO Not Given DAILY CHANDNI Sodium Chloride 10 ml 09/20/20 14:16 09/27/20 07:48 Flush - Normal Saline 10 Ml Syringe IVF 10 ml PRN PRN Administration Saline Flush Vitamin E 400 units 09/22/20 09:00 09/27/20 07:51 Vitamin E 400 Units Cap PO Not Given DAILY CHANDNI Zinc Sulfate 220 mg 09/22/20 09:00 09/27/20 07:51 Zinc Sulfate 220 Mg Cap PO 220 mg DAILY CHANDNI Administration Hospitalist Exam Vitals: Vital Signs (12 hours) Temp Pulse Resp BP Pulse Ox 09/27/20 08:43 70 149/64 H 96 09/27/20 08:27 98.7 F 79 12 122/56 L 94 L 09/27/20 04:00 97.6 F 74 16 138/65 95 09/27/20 00:00 97.8 F 84 16 108/58 L 95 Weight Admit Weight 91 lb 4.8 oz Weight 82 lb 11.2 oz General Appearance: NAD, ill appearing Eye: PERRL, anicteric sclera ENT: normocephalic atraumatic, no oropharyngeal lesions Neck: supple, symmetric, no JVD Heart: no murmur, no gallops, no rubs, irregular Heart - other findings: With the pause Respiratory: no wheezes, no rales, no ronchi Gastrointestinal: soft, non-tender, non-distended, normal bowel sounds Extremities: no clubbing, no edema Skin: normal turgor, no lesions Neurological: no new deficit Musculoskeletal: normal tone, generalized weakness, diffuse muscle atrophy Psychiatric: normal affect, normal behavior Hosp A/P (1) Sinus pause Code(s): I45.5 - OTHER SPECIFIED HEART BLOCK Status: Acute Plan: May be related with increased dose of metoprolol and digoxin toxicity, will monitor on telemetry floor, cardiology following, we have discontinued both medications together, patient may have underlying sick sinus syndrome, (2) Bilateral hydronephrosis Code(s): N13.30 - UNSPECIFIED HYDRONEPHROSIS Status: Acute (3) Acute urinary retention Code(s): R33.8 - OTHER RETENTION OF URINE Status: Acute (4) Acute kidney failure Status: Acute (5) Acute on chronic congestive heart failure Code(s): I50.9 - HEART FAILURE, UNSPECIFIED Status: Acute Qualifiers: Heart failure type: unspecified Qualified Code(s): I50.9 - Heart failure, unspecified (6) COVID-19 Code(s): U07.1 - COVID-19 Status: Acute (7) Elevated troponin Code(s): R77.8 - OTHER SPECIFIED ABNORMALITIES OF PLASMA PROTEINS Status: Acute (8) Protein-calorie malnutrition, moderate Code(s): E44.0 - MODERATE PROTEIN-CALORIE MALNUTRITION Status: Chronic (9) Paroxysmal atrial fibrillation Code(s): I48.0 - PAROXYSMAL ATRIAL FIBRILLATION Status: Chronic (10) Anxiety and depression Code(s): F41.9 - ANXIETY DISORDER, UNSPECIFIED; F32.9 - MAJOR DEPRESSIVE DISORDER, SINGLE EPISODE, UNSPECIFIED Status: Chronic (11) Glaucoma Code(s): H40.9 - UNSPECIFIED GLAUCOMA Status: Chronic (12) Dementia Code(s): F03.90 - UNSPECIFIED DEMENTIA WITHOUT BEHAVIORAL DISTURBANCE Status: Chronic Qualifiers: Dementia type: Alzheimer's - 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
[2020-09-27] MEDS: Latanoprost 0.005% Ophth Soln 2.5 ml Bottle EA EYE SCH (21:56)
[2020-09-28] MEDS: Albuterol 200 PUFF (6.7GM INHALER) INH SCH ×2 (05:27→21:14)
[2020-09-28 06:11] LABS: Anion Gap 13 mmol/L (10-20); BUN (Urea Nitrogen) 68 mg/dL (9.8-20.1); Calc. Creatinine Clearance 10 mL/min (70-130); Calcium 8.8 mg/dL (7.8-10.44); Carbon Dioxide 27 mmol/L (23-31); Chloride 116 mmol/L (98-107); Glucose 113 mg/dL (83-110); Potassium 3.8 mmol/L (3.5-5.1); Sodium 152 mmol/L (136-145)
[2020-09-28] MEDS: Folic Acid 1 MG TAB PO SCH (08:05)
[2020-09-28] MEDS: Ascorbic Acid 500 mg Chewable Tablet PO SCH (08:05)
[2020-09-28] MEDS: Zinc Sulfate 220 MG CAP PO SCH (08:05)
[2020-09-28] MEDS: Aspirin 81 mg Enteric Coated Tablet PO SCH (08:06)
[2020-09-28] MEDS: Cyanocobalamin (Vitamin B-12) 1,000 MCG TAB PO SCH (08:06)
[2020-09-28] MEDS: Vitamin E 400 UNITS CAP PO SCH (08:06)
[2020-09-28] MEDS: Magnesium Oxide 400 MG TAB PO SCH (08:06)
[2020-09-28] MEDS: Cholecalciferol 1,000 UNITS (25 MCG) TAB PO SCH (08:06)
[2020-09-28] MEDS: Apixaban 2.5 MG TAB PO SCH ×2 (08:13→21:14)
[2020-09-28] MEDS: Polyethylene Glycol 3350 17 GM Packet PO SCH (08:13)
[2020-09-28 08:20] LABS: Digoxin 2.05 ng/mL (0.8-2.0)
[2020-09-28] MEDS: Amlodipine 5 MG TAB PO SCH (08:25)
--- NOTE | 2020-09-28 09:06 | PRG ---
DATE OF SERVICE: 09/28/2020 SUBJECTIVE: Ms. Menon's evening was uneventful. Her rhythm remained stable. She did have a 4 and a 15 second pause noted yesterday. I was aware of the 4-second pause, but was not told about the 15-second pause. Her digoxin level was 2.6. Her digoxin level this morning is 2.0 just above the therapeutic range. OBJECTIVE: VITAL SIGNS: Blood pressure 122/56, pulse 70, and temperature 96.8. Physical exam deferred. IMPRESSION: 1. Atrial fibrillation. 2. COVID pneumonia. RECOMMENDATIONS: 1. Hold beta-ananya therapy in addition to digoxin. 2. Elevated digoxin level secondary to worsening renal function, now has stabilized. 3. Continue COVID pneumonia protocol. 4. No indication for Digibind at this point. Job ID: [id number]
--- NOTE | 2020-09-28 09:27 | PQF ---
CLINICAL DOCUMENTATION CLARIFICATION FORM: Dear Dr. Solis; Dr. Cano Date: 09/28/2020; 09/29/2020 Please exercise your independent, professional judgment in responding to the clarification form. Clinical indicators are provided on the bottom of this form for your review. COVID 19 virus with associated manifestations: (please check all that apply) [ ] Pneumonia [ ] Metabolic Encephalopathy [ y ] Other diagnosis CHF exacerbation_ [ ] Unable to determine In addition, please specify: Present on Admission (POA): [ ] Yes [ ] No [ ] Unable to determine For continuity of documentation, please document condition throughout progress notes and discharge summary. Thank You. To be completed by CDI/Coding staff for physician review: Clinical Indicators - Signs / Symptoms / Labs with Results and Location in Medical Record *H&P 09/21 (Bartolome): HPI: sent in for altered mental status and fevers to 100.4. Pt did receive her second dose of Covid vaccine day prior to admission. Chest x-ray showed a new right lower lobe infiltrate and effusion. A/P: RLL pneumonia with effusion. Pt with acute metabolic encephalopathy with worsening of baseline mental status. *09/21 Consult (Jamil): HPI: X-ray shows bilateral pleural effusion, R > L. CT confirmed this. Impression: CHF *09/22 pn (Ramy) Assessment: COVID positive without evidence of overt respiratory decompensation. It is assumed that she was having reaction to the second vaccine. *09/22 & 09/27 pn (Alejandro): Impression: COVID positive pneumonia. *09/23 & 07/27 pn (Irma) A/P: Acute on chronic CHF COVID-19 Risk Factors with Results and Location in Medical Record *H&P 09/21 (Bartolome): HPI: 89 yo with PMH A Fib, HTN, severe Alzheimers dementia. A/P: Right lower lobe pneumonia with effusion. Acute metabolic encephalopathy. *09/21 pn (Irma) Acute on chronic congestive heart failure. COVID-19 Treatments with Results and Location in Medical Record *09/21 pn (Irma) Plan: Continue Lasix 20mg IV twice daily. Discontinue antibiotic therapy *09/22 pn (Irma) Plan: Reduce Lasix 20 mg IV daily *09/23 pn (Irma) Plan: Discontinue Lasix Thank you, Freda Luo RN, IFEOMA [email or web address] This is a permanent part of the Medical Record [facility]
--- NOTE | 2020-09-28 13:23 | PDOC.HOSPP ---
- Subjective Encounter Date: 09/28/20 Subjective: Nonverbal, does not look in distress. - Objective Vital Signs & Weight: Vital Signs (12 hours) Temp Pulse Resp BP Pulse Ox 09/28/20 12:00 98.0 F 74 18 135/64 97 09/28/20 08:25 77 09/28/20 08:00 98.5 F 77 19 140/62 97 09/28/20 04:00 96.8 F L 70 20 122/56 L 98 Weight Admit Weight 91 lb 4.8 oz Weight 84 lb I&O: 09/27/20 09/28/20 09/29/20 06:59 06:59 06:59 Intake Total 100 624 Output Total 600 325 Balance -500 299 Result Diagrams: 09/27/20 04:07 09/28/20 05:42 Hospitalist ROS - Medication Medications: Active Medications Generic Name Dose Route Start Last Admin Trade Name Freq PRN Reason Stop Dose Admin Acetaminophen 650 mg 09/20/20 14:16 09/23/20 23:44 Acetaminophen 325 Mg Tab PO 650 mg Q4H PRN Administration Headache/Fever/Mild Pain (1-3) Acetaminophen 650 mg 09/20/20 14:16 09/20/20 18:19 Acetaminophen 650 Mg Suppository CA 650 mg Q4H PRN Administration Headache/Fever/Mild Pain (1-3) Albuterol Sulfate 2 puff 09/20/20 18:30 09/28/20 05:27 Albuterol 200 Puff (6.7gm Inhaler) INH 2 puff TID-RT CHANDNI Administration Amlodipine Besylate 5 mg 09/24/20 09:00 09/28/20 08:25 Amlodipine 5 Mg Tab PO 5 mg DAILY CHANDNI Administration Apixaban 2.5 mg 09/23/20 09:00 09/28/20 08:13 Apixaban 2.5 Mg Tab PO 2.5 mg BID CHANDNI Administration Ascorbic Acid 1,000 mg 09/22/20 09:00 09/28/20 08:05 Ascorbic Acid 500 Mg Chewable Tablet PO 1,000 mg DAILY CHANDNI Administration Aspirin 81 mg 09/22/20 09:00 09/28/20 08:06 Aspirin 81 Mg Enteric Coated Tablet PO 81 mg DAILY CHANDNI Administration Cholecalciferol 1,000 units 09/22/20 09:00 09/28/20 08:06 Cholecalciferol 1,000 Units (25 Mcg) Tab PO 1,000 units DAILY CHANDNI Administration Cyanocobalamin 1,000 mcg 09/22/20 09:00 09/28/20 08:06 Cyanocobalamin (Vitamin B-12) 1,000 Mcg Tab PO 1,000 mcg DAILY CHANDNI Administration Folic Acid 1 mg 09/22/20 09:00 09/28/20 08:05 Folic Acid 1 Mg Tab PO 1 mg DAILY CHANDNI Administration Latanoprost 1 drop 09/21/20 21:00 09/27/20 21:56 Latanoprost 0.005% Ophth Soln 2.5 Ml Bottle EA EYE 1 drop HS CHANDNI Administration Magnesium Oxide 400 mg 09/22/20 09:00 09/28/20 08:06 Magnesium Oxide 400 Mg Tab PO 400 mg DAILY CHANDNI Administration Pantoprazole Sodium 40 mg 09/22/20 09:00 09/28/20 08:06 Pantoprazole 40 Mg Tab PO 40 mg DAILY CHANDNI Administration Polyethylene Glycol 17 gm 09/21/20 09:00 09/28/20 08:13 Polyethylene Glycol 3350 17 Gm Packet PO 17 gm DAILY CHANDNI Administration Sodium Chloride 10 ml 09/20/20 14:16 09/27/20 07:48 Flush - Normal Saline 10 Ml Syringe IVF 10 ml PRN PRN Administration Saline Flush Vitamin E 400 units 09/22/20 09:00 09/28/20 08:06 Vitamin E 400 Units Cap PO 400 units DAILY CHANDNI Administration Zinc Sulfate 220 mg 09/22/20 09:00 09/28/20 08:05 Zinc Sulfate 220 Mg Cap PO 220 mg DAILY CHANDNI Administration Hospitalist Exam Vitals: Vital Signs (12 hours) Temp Pulse Resp BP Pulse Ox 09/28/20 12:00 98.0 F 74 18 135/64 97 09/28/20 08:25 77 09/28/20 08:00 98.5 F 77 19 140/62 97 09/28/20 04:00 96.8 F L 70 20 122/56 L 98 Weight Admit Weight 91 lb 4.8 oz Weight 84 lb General Appearance: NAD Eye: PERRL, anicteric sclera ENT: normocephalic atraumatic, no oropharyngeal lesions Neck: supple, symmetric, no JVD Heart: RRR, no murmur, no gallops, no rubs Respiratory: CTAB, no wheezes, no rales Gastrointestinal: soft, non-tender, non-distended Extremities: no cyanosis, no clubbing, no edema Hosp A/P (1) Acute kidney failure Status: Acute (2) Acute on chronic congestive heart failure Code(s): I50.9 - HEART FAILURE, UNSPECIFIED Status: Acute Qualifiers: Heart failure type: unspecified Qualified Code(s): I50.9 - Heart failure, unspecified (3) COVID-19 Code(s): U07.1 - COVID-19 Status: Acute (4) Sinus pause Code(s): I45.5 - OTHER SPECIFIED HEART BLOCK Status: Acute (5) Dementia Code(s): F03.90 - UNSPECIFIED DEMENTIA WITHOUT BEHAVIORAL DISTURBANCE Status: Chronic Qualifiers: Dementia type: Alzheimer's (6) Paroxysmal atrial fibrillation Code(s): I48.0 - PAROXYSMAL ATRIAL FIBRILLATION Status: Chronic - Plan Plan for today 09/28 Neurology--- patient has dementia, she minimally follows commands, her eyes are open, otherwise she does not shake my hand for example when I asked her to, the nurse is helping her to eat. ID--diagnosed with COVID-19 but does not seems to be affected from the respiratory standpoint. Pulmonary---initially diagnosed with pneumonia and an effusion currently being treated for congestive heart failure. Cardiac--- her main problem with CHF exacerbation she was on IV Lasix that has been tapered down in response to her worsening kidney function. Yesterday she had a 15-second pause so digoxin and metoprolol were stopped. She continues to be on low-dose Eliquis. Renal and electrolyte----she has acute renal insufficiency could be due to combination of diuresis also post obstructive (bilateral hydronephrosis ), now she has a Rodriguez catheter, her IV Lasix has been adjusted, she has been receiving fluids and her creatinine has been improving but her sodium has been increasing and for that reason I will start her only on D5 W instead of D5 half NS. I asked the nurse to encourage her to drink free water. Endocrinology ----hypothyroidism----apparently not on levothyroxine, I will check TSH in a.m. DVT----patient is on low-dose Eliquis.
[2020-09-28] MEDS ORDERED: Dextrose 5% in Water 1,000 ML IV SCH (13:30)
[2020-09-28] MEDS: Latanoprost 0.005% Ophth Soln 2.5 ml Bottle EA EYE SCH (21:14)
[2020-09-29] MEDS: Albuterol 200 PUFF (6.7GM INHALER) INH SCH ×2 (06:15→21:20)
[2020-09-29 07:00] LABS: Anion Gap 15 mmol/L (10-20); BUN (Urea Nitrogen) 61 mg/dL (9.8-20.1); Calc. Creatinine Clearance 12 mL/min (70-130); Calcium 8.3 mg/dL (7.8-10.44); Carbon Dioxide 26 mmol/L (23-31); Chloride 117 mmol/L (98-107); Glucose 108 mg/dL (83-110); Potassium 3.7 mmol/L (3.5-5.1); Sodium 154 mmol/L (136-145)
[2020-09-29 07:11] LABS: Mean Corpuscular HGB CONC 31.6 g/dL (32.0-36.0); Mean Corpuscular Hemoglobin 28.8 pg (27.0-31.0); Mean Corpuscular Volume 91.2 fL (78.0-98.0); Platelet Count 202 thou/uL (130-400); RBC Distribution Width 15.1 % (11.5-14.5); Red Blood Cell (RBC) Count 3.46 mill/uL (4.20-5.40); White Blood Cell (WBC) Count 14.7 thou/uL (4.8-10.8)
[2020-09-29] MEDS: Zinc Sulfate 220 MG CAP PO SCH (07:34)
[2020-09-29] MEDS: Folic Acid 1 MG TAB PO SCH (07:34)
[2020-09-29] MEDS: Aspirin 81 mg Enteric Coated Tablet PO SCH (07:34)
[2020-09-29] MEDS: Apixaban 2.5 MG TAB PO SCH ×2 (07:34→07:35)
[2020-09-29] MEDS: Magnesium Oxide 400 MG TAB PO SCH (07:34)
[2020-09-29] MEDS: Vitamin E 400 UNITS CAP PO SCH (07:34)
[2020-09-29] MEDS: Amlodipine 5 MG TAB PO SCH (07:35)
[2020-09-29] MEDS: Cholecalciferol 1,000 UNITS (25 MCG) TAB PO SCH (07:35)
[2020-09-29] MEDS: Ascorbic Acid 500 mg Chewable Tablet PO SCH (07:35)
[2020-09-29] MEDS: Cyanocobalamin (Vitamin B-12) 1,000 MCG TAB PO SCH (07:38)
[2020-09-29] MEDS: Polyethylene Glycol 3350 17 GM Packet PO SCH (07:39)
[2020-09-29 09:39] LABS: Band 2 % (5-11); Eosinophils 3 % (0-10); Lymphocytes 21 % (21-51); MDiff Complete? YES; Monocytes 6 % (0-10); Neutrophil 68 % (42-75); Polychromasia SLIGHT = 2-3 cells (100X) (0-2/hpf)
--- NOTE | 2020-09-29 11:53 | PDOC.HOSPP ---
- Subjective Encounter Date: 09/29/20 Subjective: She does not appear to be in distress continues to refuse to eat. - Objective Vital Signs & Weight: Vital Signs (12 hours) Temp Pulse Resp BP Pulse Ox 09/29/20 07:40 98.1 F 83 16 135/63 96 09/29/20 07:35 86 09/29/20 03:50 97.7 F 86 15 119/62 94 L Weight Admit Weight 91 lb 4.8 oz Weight 84 lb I&O: 09/28/20 09/29/20 09/30/20 06:59 06:59 06:59 Intake Total 624 Output Total 325 Balance 299 Result Diagrams: 09/29/20 06:41 09/29/20 06:41 Hospitalist ROS - Medication Medications: Active Medications Generic Name Dose Route Start Last Admin Trade Name Freq PRN Reason Stop Dose Admin Acetaminophen 650 mg 09/20/20 14:16 09/23/20 23:44 Acetaminophen 325 Mg Tab PO 650 mg Q4H PRN Administration Headache/Fever/Mild Pain (1-3) Acetaminophen 650 mg 09/20/20 14:16 09/20/20 18:19 Acetaminophen 650 Mg Suppository [place] 650 mg Q4H PRN Administration Headache/Fever/Mild Pain (1-3) Albuterol Sulfate 2 puff 09/20/20 18:30 09/29/20 06:15 Albuterol 200 Puff (6.7gm Inhaler) INH 2 puff TID-RT CHANDNI Administration Amlodipine Besylate 5 mg 09/24/20 09:00 09/29/20 07:35 Amlodipine 5 Mg Tab PO 5 mg DAILY CHANDNI Administration Apixaban 2.5 mg 09/23/20 09:00 09/29/20 07:35 Apixaban 2.5 Mg Tab PO 2.5 mg BID CHANDNI Administration Ascorbic Acid 1,000 mg 09/22/20 09:00 09/29/20 07:35 Ascorbic Acid 500 Mg Chewable Tablet PO 1,000 mg DAILY CHANDNI Administration Aspirin 81 mg 09/22/20 09:00 09/29/20 07:34 Aspirin 81 Mg Enteric Coated Tablet PO 81 mg DAILY CHANDNI Administration Cholecalciferol 1,000 units 09/22/20 09:00 09/29/20 07:35 Cholecalciferol 1,000 Units (25 Mcg) Tab PO 1,000 units DAILY CHANDNI Administration Cyanocobalamin 1,000 mcg 09/22/20 09:00 09/29/20 07:38 Cyanocobalamin (Vitamin B-12) 1,000 Mcg Tab PO 1,000 mcg DAILY CHANDNI Administration Folic Acid 1 mg 09/22/20 09:00 09/29/20 07:34 Folic Acid 1 Mg Tab PO 1 mg DAILY CHANDNI Administration Latanoprost 1 drop 09/21/20 21:00 09/28/20 21:14 Latanoprost 0.005% Ophth Soln 2.5 Ml Bottle EA EYE 1 drop HS CHANDNI Administration Magnesium Oxide 400 mg 09/22/20 09:00 09/29/20 07:34 Magnesium Oxide 400 Mg Tab PO 400 mg DAILY CHANDNI Administration Pantoprazole Sodium 40 mg 09/22/20 09:00 09/29/20 07:35 Pantoprazole 40 Mg Tab PO 40 mg DAILY CHANDNI Administration Polyethylene Glycol 17 gm 09/21/20 09:00 09/29/20 07:39 Polyethylene Glycol 3350 17 Gm Packet PO Not Given DAILY CHANDNI Sodium Chloride 10 ml 09/20/20 14:16 09/27/20 07:48 Flush - Normal Saline 10 Ml Syringe IVF 10 ml PRN PRN Administration Saline Flush Vitamin E 400 units 09/22/20 09:00 09/29/20 07:34 Vitamin E 400 Units Cap PO 400 units DAILY CHANDNI Administration Zinc Sulfate 220 mg 09/22/20 09:00 09/29/20 07:34 Zinc Sulfate 220 Mg Cap PO 220 mg DAILY CHANDNI Administration Hospitalist Exam Vitals: Vital Signs (12 hours) Temp Pulse Resp BP Pulse Ox 09/29/20 07:40 98.1 F 83 16 135/63 96 09/29/20 07:35 86 09/29/20 03:50 97.7 F 86 15 119/62 94 L Weight Admit Weight 91 lb 4.8 oz Weight 84 lb General Appearance: NAD, awake alert Eye: PERRL, anicteric sclera ENT: normocephalic atraumatic, no oropharyngeal lesions Neck: supple, symmetric, no JVD Heart: RRR, no murmur, no gallops Respiratory: no wheezes, no rales Gastrointestinal: soft, non-tender, non-distended Extremities: no cyanosis, no clubbing Hosp A/P (1) Acute kidney failure Status: Acute (2) Acute on chronic congestive heart failure Code(s): I50.9 - HEART FAILURE, UNSPECIFIED Status: Acute Qualifiers: Heart failure type: unspecified Qualified Code(s): I50.9 - Heart failure, unspecified (3) COVID-19 Code(s): U07.1 - COVID-19 Status: Acute (4) Sinus pause Code(s): I45.5 - OTHER SPECIFIED HEART BLOCK Status: Acute (5) Dementia Code(s): F03.90 - UNSPECIFIED DEMENTIA WITHOUT BEHAVIORAL DISTURBANCE Status: Chronic Qualifiers: Dementia type: Alzheimer's (6) Paroxysmal atrial fibrillation Code(s): I48.0 - PAROXYSMAL ATRIAL FIBRILLATION Status: Chronic - Plan Plan for today 09/28 Neurology--- patient has dementia, she minimally follows commands, her eyes are open, otherwise she does not shake my hand for example when I asked her to, the nurse is helping her to eat. ID--diagnosed with COVID-19 but does not seems to be affected from the respiratory standpoint. Pulmonary---initially diagnosed with pneumonia and an effusion currently being treated for congestive heart failure. Cardiac--- her main problem with CHF exacerbation she was on IV Lasix that has been tapered down in response to her worsening kidney function. Yesterday she had a 15-second pause so digoxin and metoprolol were stopped. She continues to be on low-dose Eliquis. Renal and electrolyte----she has acute renal insufficiency could be due to combination of diuresis also post obstructive (bilateral hydronephrosis ), now she has a Rodriguez catheter, her IV Lasix has been adjusted, she has been receiving fluids and her creatinine has been improving but her sodium has been increasing and for that reason I will start her only on D5 W instead of D5 half NS. I asked the nurse to encourage her to drink free water. Endocrinology ----hypothyroidism----apparently not on levothyroxine, I will check TSH in a.m. DVT----patient is on low-dose Eliquis. Plan for today 09/29 No events overnight the patient continues to have poor oral intake so I will increase her D5W to 75 cc/h, I spoke with her daughter and she is agreable for hospice, but her is in the hospital and he is not yet convinced to start his on hospice, my plan is to consult palliative care to speak with him he is in our hospital, might drop by and talk to myself and we will go from there otherwise we will recheck her electrolytes in the morning.
--- NOTE | 2020-09-29 13:31 | PRG ---
DATE OF SERVICE: 09/29/2020 SUBJECTIVE: Ms. Menon's rhythm appears to be more stable. No significant pauses noted overnight. OBJECTIVE: VITAL SIGNS: Blood pressure 157/65, pulse 56, and temperature is 97.4. Physical exam is deferred due to COVID positive. PERTINENT LABORATORY DATA: Improvement in creatinine from 2.35 to 1.98. IMPRESSION: 1. Digoxin toxicity. 2. Atrial fibrillation. 3. COVID positive pneumonia. RECOMMENDATIONS: 1. Continuing anticoagulation therapy. 2. Discontinue digoxin. 3. The patient appears to be rate control with no further significant pauses present. 4. Check digoxin level in a.m. Job ID: [id number]
[2020-09-29] MEDS: Latanoprost 0.005% Ophth Soln 2.5 ml Bottle EA EYE SCH (21:17)
[2020-09-30 04:45] LABS: #Basophils 0.1 thou/uL (0.0-0.2); #Eosinphils 0.3 thou/uL (0.0-0.7); #Lymphocytes 2.8 thou/uL (1.20-3.40); #Monocytes 0.8 thou/uL (0.11-0.59); %Eosinophils 2.8 % (0.0-10.0); %Lymphocytes 23.4 % (21.0-51.0); %Monocytes 6.8 % (0.0-10.0); %Neutrophils 65.9 % (42.0-75.0); Hemoglobin 9.3 g/dL (12.0-16.0); Mean Corpuscular HGB CONC 32.3 g/dL (32.0-36.0); Mean Corpuscular Hemoglobin 29.8 pg (27.0-31.0); Mean Corpuscular Volume 92.1 fL (78.0-98.0); Mean Platelet Volume 9.9 fL (7.4-10.4); Platelet Count 224 thou/uL (130-400); RBC Distribution Width 15.1 % (11.5-14.5); Red Blood Cell (RBC) Count 3.11 mill/uL (4.20-5.40); White Blood Cell (WBC) Count 12.1 thou/uL (4.8-10.8)
[2020-09-30 05:07] LABS: Anion Gap 12 mmol/L (10-20); BUN (Urea Nitrogen) 55 mg/dL (9.8-20.1); Calc. Creatinine Clearance 13 mL/min (70-130); Calcium 8.2 mg/dL (7.8-10.44); Carbon Dioxide 28 mmol/L (23-31); Chloride 115 mmol/L (98-107); Glucose 104 mg/dL (83-110); Potassium 3.6 mmol/L (3.5-5.1); Sodium 151 mmol/L (136-145)
[2020-09-30] MEDS: Dextrose 5% in Water 1,000 ML IV SCH ×2 (05:33→05:48)
[2020-09-30] MEDS: Albuterol 200 PUFF (6.7GM INHALER) INH SCH ×3 (05:33→18:36)
[2020-09-30] MEDS: Folic Acid 1 MG TAB PO SCH (07:52)
[2020-09-30] MEDS: Cyanocobalamin (Vitamin B-12) 1,000 MCG TAB PO SCH (07:53)
[2020-09-30] MEDS: Ascorbic Acid 500 mg Chewable Tablet PO SCH (07:53)
[2020-09-30] MEDS: Zinc Sulfate 220 MG CAP PO SCH (07:54)
[2020-09-30] MEDS: Cholecalciferol 1,000 UNITS (25 MCG) TAB PO SCH (07:54)
[2020-09-30] MEDS: Aspirin 81 mg Enteric Coated Tablet PO SCH (07:54)
[2020-09-30] MEDS: Amlodipine 5 MG TAB PO SCH (07:54)
[2020-09-30] MEDS: Apixaban 2.5 MG TAB PO SCH ×2 (07:54→20:45)
[2020-09-30] MEDS: Vitamin E 400 UNITS CAP PO SCH (07:55)
[2020-09-30] MEDS: Magnesium Oxide 400 MG TAB PO SCH (07:55)
[2020-09-30] MEDS: Polyethylene Glycol 3350 17 GM Packet PO SCH (10:09)
--- NOTE | 2020-09-30 15:28 | PRG ---
DATE OF SERVICE: 09/30/2020 SUBJECTIVE: Ms. Menon's status is unchanged overnight. Her rhythm appears stable. She no longer had significant pauses. OBJECTIVE: VITAL SIGNS: Blood pressure 128/62, pulse 78, temperature 97.8. Physical exam deferred due to COVID positive. PERTINENT LABORATORY DATA: Hemoglobin 9.3, hematocrit 28.7. IMPRESSION: 1. Atrial fibrillation. 2. COVID positive pneumonia. 3. Dig toxicity. RECOMMENDATIONS: 1. We will repeat her digit level. She was downtrending on 09/28/2020. Her creatinine has also improved. 2. Heart rate appears to be stable. Continue current course. No further recommendations. Job ID: [id number]
[2020-09-30 15:32] LABS: Digoxin 1.56 ng/mL (0.8-2.0)
--- NOTE | 2020-09-30 19:43 | PDOC.HOSPP ---
- Subjective Encounter Date: 09/30/20 Subjective: She looks better today more communicative. - Objective Vital Signs & Weight: Vital Signs (12 hours) Temp Pulse Resp BP Pulse Ox 09/30/20 15:35 98.0 F 88 19 135/62 98 09/30/20 12:00 97.8 F 78 18 128/62 96 09/30/20 08:00 97.7 F 81 16 97 09/30/20 07:54 88 Weight Admit Weight 91 lb 4.8 oz Weight 84 lb I&O: 09/29/20 09/30/20 10/01/20 06:59 06:59 06:59 Intake Total 160 Output Total 250 500 Balance -90 -500 Result Diagrams: 09/30/20 04:28 09/30/20 04:28 Hospitalist ROS - Medication Medications: Active Medications Generic Name Dose Route Start Last Admin Trade Name Freq PRN Reason Stop Dose Admin Acetaminophen 650 mg 09/20/20 14:16 09/23/20 23:44 Acetaminophen 325 Mg Tab PO 650 mg Q4H PRN Administration Headache/Fever/Mild Pain (1-3) Acetaminophen 650 mg 09/20/20 14:16 09/20/20 18:19 Acetaminophen 650 Mg Suppository [place] 650 mg Q4H PRN Administration Headache/Fever/Mild Pain (1-3) Albuterol Sulfate 2 puff 09/20/20 18:30 09/30/20 18:36 Albuterol 200 Puff (6.7gm Inhaler) INH 2 puff TID-RT CHANDNI Administration Amlodipine Besylate 5 mg 09/24/20 09:00 09/30/20 07:54 Amlodipine 5 Mg Tab PO 5 mg DAILY CHANDNI Administration Apixaban 2.5 mg 09/23/20 09:00 09/30/20 07:54 Apixaban 2.5 Mg Tab PO 2.5 mg BID CHANDNI Administration Ascorbic Acid 1,000 mg 09/22/20 09:00 09/30/20 07:53 Ascorbic Acid 500 Mg Chewable Tablet PO 1,000 mg DAILY CHANDNI Administration Aspirin 81 mg 09/22/20 09:00 09/30/20 07:54 Aspirin 81 Mg Enteric Coated Tablet PO 81 mg DAILY CHANDNI Administration Cholecalciferol 1,000 units 09/22/20 09:00 09/30/20 07:54 Cholecalciferol 1,000 Units (25 Mcg) Tab PO 1,000 units DAILY CHANDNI Administration Cyanocobalamin 1,000 mcg 09/22/20 09:00 09/30/20 07:53 Cyanocobalamin (Vitamin B-12) 1,000 Mcg Tab PO 1,000 mcg DAILY CHANDNI Administration Folic Acid 1 mg 09/22/20 09:00 09/30/20 07:52 Folic Acid 1 Mg Tab PO 1 mg DAILY CHANDNI Administration Dextrose/Water 1,000 mls @ 75 mls/hr 09/29/20 08:28 09/30/20 05:48 D5w IV 1,000 mls .[id number] CHANDNI Administration Latanoprost 1 drop 09/21/20 21:00 09/29/20 21:17 Latanoprost 0.005% Ophth Soln 2.5 Ml Bottle EA EYE 1 drop HS CHANDNI Administration Magnesium Oxide 400 mg 09/22/20 09:00 09/30/20 07:55 Magnesium Oxide 400 Mg Tab PO 400 mg DAILY CHANDNI Administration Pantoprazole Sodium 40 mg 09/22/20 09:00 09/30/20 07:54 Pantoprazole 40 Mg Tab PO 40 mg DAILY CHANDNI Administration Polyethylene Glycol 17 gm 09/21/20 09:00 09/30/20 10:09 Polyethylene Glycol 3350 17 Gm Packet PO Not Given DAILY CHANDNI Sodium Chloride 10 ml 09/20/20 14:16 09/27/20 07:48 Flush - Normal Saline 10 Ml Syringe IVF 10 ml PRN PRN Administration Saline Flush Vitamin E 400 units 09/22/20 09:00 09/30/20 07:55 Vitamin E 400 Units Cap PO 400 units DAILY CHANDNI Administration Zinc Sulfate 220 mg 09/22/20 09:00 09/30/20 07:54 Zinc Sulfate 220 Mg Cap PO 220 mg DAILY CHANDNI Administration Hospitalist Exam Vitals: Vital Signs (12 hours) Temp Pulse Resp BP Pulse Ox 09/30/20 15:35 98.0 F 88 19 135/62 98 09/30/20 12:00 97.8 F 78 18 128/62 96 09/30/20 08:00 97.7 F 81 16 97 09/30/20 07:54 88 Weight Admit Weight 91 lb 4.8 oz Weight 84 lb General Appearance: NAD Eye: PERRL, anicteric sclera ENT: normocephalic atraumatic Neck: supple, symmetric Heart: RRR, no murmur, no gallops Respiratory: CTAB, no wheezes, no rales Gastrointestinal: soft, non-tender, non-distended Extremities: no cyanosis, no clubbing Hosp A/P (1) Acute kidney failure Status: Acute (2) Acute on chronic congestive heart failure Code(s): I50.9 - HEART FAILURE, UNSPECIFIED Status: Acute Qualifiers: Heart failure type: unspecified Qualified Code(s): I50.9 - Heart failure, unspecified (3) COVID-19 Code(s): U07.1 - COVID-19 Status: Acute (4) Sinus pause Code(s): I45.5 - OTHER SPECIFIED HEART BLOCK Status: Acute (5) Dementia Code(s): F03.90 - UNSPECIFIED DEMENTIA WITHOUT BEHAVIORAL DISTURBANCE Status: Chronic Qualifiers: Dementia type: Alzheimer's (6) Paroxysmal atrial fibrillation Code(s): I48.0 - PAROXYSMAL ATRIAL FIBRILLATION Status: Chronic - Plan Plan for today 09/28 Neurology--- patient has dementia, she minimally follows commands, her eyes are open, otherwise she does not shake my hand for example when I asked her to, the nurse is helping her to eat. ID--diagnosed with COVID-19 but does not seems to be affected from the respiratory standpoint. Pulmonary---initially diagnosed with pneumonia and an effusion currently being treated for congestive heart failure. Cardiac--- her main problem with CHF exacerbation she was on IV Lasix that has been tapered down in response to her worsening kidney function. Yesterday she had a 15-second pause so digoxin and metoprolol were stopped. She continues to be on low-dose Eliquis. Renal and electrolyte----she has acute renal insufficiency could be due to co mbination of diuresis also post obstructive (bilateral hydronephrosis ), now she has a Rodriguez catheter, her IV Lasix has been adjusted, she has been receiving fluids and her creatinine has been improving but her sodium has been increasing and for that reason I will start her only on D5 W instead of D5 half NS. I asked the nurse to encourage her to drink free water. Endocrinology ----hypothyroidism----apparently not on levothyroxine, I will check TSH in a.m. DVT----patient is on low-dose Eliquis. Plan for today 09/29 No events overnight the patient continues to have poor oral intake so I will increase her D5W to 75 cc/h, I spoke with her daughter and she is agreable for hospice, but her is in the hospital and he is not yet convinced to start his on hospice, my plan is to consult palliative care to speak with him he is in our hospital, might drop by and talk to myself and we will go from there otherwise we will recheck her electrolytes in the morning. Plan for today 09/30 Patient appears to be eating more today and her sodium is better after the increase of her D5W, so I will continue with the same fluid management and recheck her sodium in the morning, I did drop by her room and spoke with him about hospice care for her does not look like he is able to make that decision. We will continue same management for now.
[2020-09-30] MEDS: Latanoprost 0.005% Ophth Soln 2.5 ml Bottle EA EYE SCH (20:45)
[2020-10-01] MEDS: Apixaban 2.5 MG TAB PO SCH ×3 (00:01→21:13)
[2020-10-01 05:48] LABS: #Basophils 0.2 thou/uL (0.0-0.2); #Eosinphils 0.3 thou/uL (0.0-0.7); #Lymphocytes 3.1 thou/uL (1.20-3.40); #Monocytes 0.6 thou/uL (0.11-0.59); #Neutrophils 9.8 thou/uL (1.40-6.50); %Basophils 1.3 % (0.0-1.0); %Eosinophils 2.3 % (0.0-10.0); %Lymphocytes 21.9 % (21.0-51.0); %Monocytes 4.1 % (0.0-10.0); %Neutrophils 70.5 % (42.0-75.0); Hemoglobin 8.8 g/dL (12.0-16.0); Mean Corpuscular HGB CONC 33.1 g/dL (32.0-36.0); Mean Corpuscular Hemoglobin 30.6 pg (27.0-31.0); Mean Corpuscular Volume 92.3 fL (78.0-98.0); Mean Platelet Volume 10.1 fL (7.4-10.4); Platelet Count 211 thou/uL (130-400); Red Blood Cell (RBC) Count 2.88 mill/uL (4.20-5.40)
[2020-10-01] MEDS: Dextrose 5% in Water 1,000 ML IV SCH ×3 (05:59→21:13)
[2020-10-01] MEDS: Albuterol 200 PUFF (6.7GM INHALER) INH SCH ×2 (06:01→19:26)
[2020-10-01 06:09] LABS: Anion Gap 12 mmol/L (10-20); BUN (Urea Nitrogen) 46 mg/dL (9.8-20.1); Calc. Creatinine Clearance 14 mL/min (70-130); Calcium 8.2 mg/dL (7.8-10.44); Carbon Dioxide 30 mmol/L (23-31); Chloride 113 mmol/L (98-107); Glucose 106 mg/dL (83-110); Potassium 3.5 mmol/L (3.5-5.1); Sodium 151 mmol/L (136-145)
[2020-10-01] MEDS: Ascorbic Acid 500 mg Chewable Tablet PO SCH (09:40)
[2020-10-01] MEDS: Cholecalciferol 1,000 UNITS (25 MCG) TAB PO SCH (09:40)
[2020-10-01] MEDS: Amlodipine 5 MG TAB PO SCH (09:40)
[2020-10-01] MEDS: Aspirin 81 mg Enteric Coated Tablet PO SCH (09:40)
[2020-10-01] MEDS: Magnesium Oxide 400 MG TAB PO SCH (09:40)
[2020-10-01] MEDS: Vitamin E 400 UNITS CAP PO SCH (09:40)
[2020-10-01] MEDS: Cyanocobalamin (Vitamin B-12) 1,000 MCG TAB PO SCH (09:40)
[2020-10-01] MEDS: Polyethylene Glycol 3350 17 GM Packet PO SCH (09:41)
[2020-10-01] MEDS: Zinc Sulfate 220 MG CAP PO SCH (09:41)
[2020-10-01] MEDS: Folic Acid 1 MG TAB PO SCH (09:41)
--- NOTE | 2020-10-01 13:00 | PDOC.HOSPP ---
- Subjective Encounter Date: 10/01/20 (f/u hypernatremia) Encounter Time: 12:58 Subjective: No overnight events noted. Pt able to say hi, but not engaging with other conversation. - Objective Vital Signs & Weight: Vital Signs (12 hours) Temp Pulse Resp BP Pulse Ox 10/01/20 12:24 98.8 F 77 15 124/58 L 94 L 10/01/20 09:40 85 10/01/20 08:00 97.6 F 80 16 144/66 H 93 L 10/01/20 04:46 95 10/01/20 04:00 97.8 F 85 16 135/60 95 Weight Admit Weight 91 lb 4.8 oz Weight 83 lb 0.1 oz I&O: 09/30/20 10/01/20 10/02/20 06:59 06:59 06:59 Intake Total 160 60 Output Total 250 900 Balance -90 -840 Result Diagrams: 10/01/20 04:56 10/01/20 04:56 EKG Reviewed by me: Yes (tele - a fib 80's) Hospitalist ROS - Medication Medications: Active Medications Generic Name Dose Route Start Last Admin Trade Name Freq PRN Reason Stop Dose Admin Acetaminophen 650 mg 09/20/20 14:16 09/23/20 23:44 Acetaminophen 325 Mg Tab PO 650 mg Q4H PRN Administration Headache/Fever/Mild Pain (1-3) Acetaminophen 650 mg 09/20/20 14:16 09/20/20 18:19 Acetaminophen 650 Mg Suppository [place] 650 mg Q4H PRN Administration Headache/Fever/Mild Pain (1-3) Albuterol Sulfate 2 puff 09/20/20 18:30 10/01/20 06:01 Albuterol 200 Puff (6.7gm Inhaler) INH 2 puff TID-RT CHADNNI Administration Amlodipine Besylate 5 mg 09/24/20 09:00 10/01/20 09:40 Amlodipine 5 Mg Tab PO 5 mg DAILY CHANDNI Administration Apixaban 2.5 mg 09/23/20 09:00 10/01/20 09:41 Apixaban 2.5 Mg Tab PO 2.5 mg BID CHANDNI Administration Ascorbic Acid 1,000 mg 09/22/20 09:00 10/01/20 09:40 Ascorbic Acid 500 Mg Chewable Tablet PO 1,000 mg DAILY CHANDNI Administration Aspirin 81 mg 09/22/20 09:00 10/01/20 09:40 Aspirin 81 Mg Enteric Coated Tablet PO 81 mg DAILY CHANDNI Administration Cholecalciferol 1,000 units 09/22/20 09:00 10/01/20 09:40 Cholecalciferol 1,000 Units (25 Mcg) Tab PO 1,000 units DAILY CHANDNI Administration Cyanocobalamin 1,000 mcg 09/22/20 09:00 10/01/20 09:40 Cyanocobalamin (Vitamin B-12) 1,000 Mcg Tab PO 1,000 mcg DAILY CHANDNI Administration Folic Acid 1 mg 09/22/20 09:00 10/01/20 09:41 Folic Acid 1 Mg Tab PO 1 mg DAILY CHANDNI Administration Dextrose/Water 1,000 mls @ 75 mls/hr 09/29/20 08:28 10/01/20 06:02 D5w IV 1,000 mls .[id number] CHANDNI Administration Latanoprost 1 drop 09/21/20 21:00 09/30/20 20:45 Latanoprost 0.005% Ophth Soln 2.5 Ml Bottle EA EYE 1 drop HS CHANDNI Administration Magnesium Oxide 400 mg 09/22/20 09:00 10/01/20 09:40 Magnesium Oxide 400 Mg Tab PO 400 mg DAILY CHANDNI Administration Pantoprazole Sodium 40 mg 09/22/20 09:00 10/01/20 09:40 Pantoprazole 40 Mg Tab PO 40 mg DAILY CHANDNI Administration Polyethylene Glycol 17 gm 09/21/20 09:00 10/01/20 09:41 Polyethylene Glycol 3350 17 Gm Packet PO Not Given DAILY CHANDNI Sodium Chloride 10 ml 09/20/20 14:16 09/27/20 07:48 Flush - Normal Saline 10 Ml Syringe IVF 10 ml PRN PRN Administration Saline Flush Vitamin E 400 units 09/22/20 09:00 10/01/20 09:40 Vitamin E 400 Units Cap PO 400 units DAILY CHANDNI Administration Zinc Sulfate 220 mg 09/22/20 09:00 10/01/20 09:41 Zinc Sulfate 220 Mg Cap PO 220 mg DAILY CHANDNI Administration Hospitalist Exam Vitals: Vital Signs (12 hours) Temp Pulse Resp BP Pulse Ox 10/01/20 12:24 98.8 F 77 15 124/58 L 94 L 10/01/20 09:40 85 10/01/20 08:00 97.6 F 80 16 144/66 H 93 L 10/01/20 04:46 95 10/01/20 04:00 97.8 F 85 16 135/60 95 Weight Admit Weight 91 lb 4.8 oz Weight 83 lb 0.1 oz General Appearance: NAD Heart: irregular, III/IV Respiratory: no wheezes, no rales, no ronchi Gastrointestinal: soft, non-tender, non-distended, normal bowel sounds Extremities: no cyanosis, no clubbing, no edema Psychiatric - other findings: awake, not oriented Hosp A/P (1) COVID-19 Code(s): U07.1 - COVID-19 Status: Acute (2) Dementia Code(s): F03.90 - UNSPECIFIED DEMENTIA WITHOUT BEHAVIORAL DISTURBANCE Status: Chronic Qualifiers: Dementia type: Alzheimer's (3) Paroxysmal atrial fibrillation Code(s): I48.0 - PAROXYSMAL ATRIAL FIBRILLATION Status: Chronic (4) Hypernatremia Code(s): E87.0 - HYPEROSMOLALITY AND HYPERNATREMIA Status: Acute (5) Anemia Code(s): D64.9 - ANEMIA, UNSPECIFIED Status: Chronic (6) Acute on chronic heart failure Code(s): I50.9 - HEART FAILURE, UNSPECIFIED Status: Acute Qualifiers: Heart failure type: unspecified Qualified Code(s): I50.9 - Heart failure, unspecified (7) NALINI (acute kidney injury) Code(s): N17.9 - ACUTE KIDNEY FAILURE, UNSPECIFIED Status: Acute (8) Leukocytosis Code(s): D72.829 - ELEVATED WHITE BLOOD CELL COUNT, UNSPECIFIED Status: Acute Qualifiers: Leukocytosis type: unspecified Qualified Code(s): D72.829 - Elevated white blood cell count, unspecified - Plan Discussed the goal of care with the patient's daughter - that the patient return to [place] with hospice care and be able to see her who is currently in skilled care there. Will continue current tx. Given the heart failure and need for diuresis during hospitalization, then the NALINI, I'll hold on the D5w at current rate. Encourage PO intake. COVID - asx NALINI - improving with hydration, renally adjust meds Hypernatremia/Hyperchloremia - stable Elevated digoxin level - resolved Anemia - worsening, no gross bleeding. REcheck in AM and if lower, will d/c eliquis Leukocytosis - uncertain etiology - no signs of new infection, will monitor. dvt prophy - on eliquis for stroke risk reduction with a fib gi prophy - on ppi code status DNR Care d/w pt's daughter, no questions or further needs at end of eval.
--- NOTE | 2020-10-01 13:10 | PDOC.CPN ---
- Subjective Date: 10/01/20 Time: 12:50 Interval history: No new events. Renal function continues to improve. - Review of Systems General: denies: fever/chills, weight/appetite/sleep changes, night sweats, fatigue Respiratory: denies: cough, congestion, shortness of breath, exercise intolerance Cardiovascular: denies: chest pain, palpitation, edema, paroxysmal nocturnal dyspnea, orthopnea Gastrointestinal: denies: nausea, vomiting, diarrhea, constipation, abd pain, GI bleeding Musculoskeletal: denies: pain, tenderness, stiffness, swelling, arthritis/ arthralgias Neurological: denies: numbness, syncope, seizure, weakness - Objective Allergies/Adverse Reactions: Allergies Allergy/AdvReac Type Severity Reaction Status Date / Time cephalexin Allergy Verified 08/07/20 20:53 erythromycin base Allergy Verified 08/07/20 20:53 Penicillins Allergy Verified 08/07/20 20:53 Sulfa (Sulfonamide Allergy Verified 08/07/20 20:53 Antibiotics) levofloxacin [From Levaquin] AdvReac Severe Verified 09/20/20 17:16 Visit Medications: Current Medications Acetaminophen (Acetaminophen 325 Mg Tab) 650 mg PO Q4H PRN PRN Reason: Headache/Fever/Mild Pain (1-3) Last Admin: 09/23/20 23:44 Dose: 650 mg Documented by: Acetaminophen (Acetaminophen 650 Mg Suppository) 650 mg [place] Q4H PRN PRN Reason: Headache/Fever/Mild Pain (1-3) Last Admin: 09/20/20 18:19 Dose: 650 mg Documented by: Albuterol Sulfate (Albuterol 200 Puff (6.7gm Inhaler)) 2 puff INH TID-RT [facility] Last Admin: 10/01/20 06:01 Dose: 2 puff Documented by: Amlodipine Besylate (Amlodipine 5 Mg Tab) 5 mg PO DAILY [facility] Last Admin: 10/01/20 09:40 Dose: 5 mg Documented by: Apixaban (Apixaban 2.5 Mg Tab) 2.5 mg PO BID [facility] Last Admin: 10/01/20 09:41 Dose: 2.5 mg Documented by: Ascorbic Acid (Ascorbic Acid 500 Mg Chewable Tablet) 1,000 mg PO DAILY [facility] Last Admin: 10/01/20 09:40 Dose: 1,000 mg Documented by: Aspirin (Aspirin 81 Mg Enteric Coated Tablet) 81 mg PO DAILY [facility] Last Admin: 10/01/20 09:40 Dose: 81 mg Documented by: Cholecalciferol (Cholecalciferol 1,000 Units (25 Mcg) Tab) 1,000 units PO DAILY [facility] Last Admin: 10/01/20 09:40 Dose: 1,000 units Documented by: Cyanocobalamin (Cyanocobalamin (Vitamin B-12) 1,000 Mcg Tab) 1,000 mcg PO DAILY [facility] Last Admin: 10/01/20 09:40 Dose: 1,000 mcg Documented by: Folic Acid (Folic Acid 1 Mg Tab) 1 mg PO DAILY [facility] Last Admin: 10/01/20 09:41 Dose: 1 mg Documented by: Dextrose/Water (D5w) 1,000 mls @ 75 mls/hr IV .[id number] [facility] Last Admin: 10/01/20 06:02 Dose: 1,000 mls Documented by: Latanoprost (Latanoprost 0.005% Ophth Soln 2.5 Ml Bottle) 1 drop EA EYE HS [facility] Last Admin: 09/30/20 20:45 Dose: 1 drop Documented by: Magnesium Oxide (Magnesium Oxide 400 Mg Tab) 400 mg PO DAILY [facility] Last Admin: 10/01/20 09:40 Dose: 400 mg Documented by: Pantoprazole Sodium (Pantoprazole 40 Mg Tab) 40 mg PO DAILY [facility] Last Admin: 10/01/20 09:40 Dose: 40 mg Documented by: Polyethylene Glycol (Polyethylene Glycol 3350 17 Gm Packet) 17 gm PO DAILY [facility] Last Admin: 10/01/20 09:41 Dose: Not Given Documented by: Sodium Chloride (Flush - Normal Saline 10 Ml Syringe) 10 ml IVF PRN PRN PRN Reason: Saline Flush Last Admin: 09/27/20 07:48 Dose: 10 ml Documented by: Tramadol HCl (Tramadol Hcl 50 Mg Tab) 50 mg PO BID PRN PRN Reason: Pain Vitamin E (Vitamin E 400 Units Cap) 400 units PO DAILY [facility] Last Admin: 10/01/20 09:40 Dose: 400 units Documented by: Zinc Sulfate (Zinc Sulfate 220 Mg Cap) 220 mg PO DAILY [facility] Last Admin: 10/01/20 09:41 Dose: 220 mg Documented by: Vital Signs & Weight: Vital Signs Temp Pulse Resp BP Pulse Ox 10/01/20 12:24 98.8 F 77 15 124/58 L 94 L 10/01/20 09:40 85 10/01/20 08:00 97.6 F 80 16 144/66 H 93 L 10/01/20 04:46 95 10/01/20 04:00 97.8 F 85 16 135/60 95 Admit Weight 91 lb 4.8 oz Weight 83 lb 0.1 oz - Physical Exam General: alert & oriented x3, appears well, no apparent distress HEENT: mucus membranes moist Neck: supple neck Cardiac: regular rate and rhythm Lungs: normal breath sounds Neuro: grossly intact Abdomen: soft, non-tender Extremities: no edema Skin: clear Musculoskeletal: no pain - Labs Result Diagrams: 10/02/20 04:33 10/02/20 04:33 Troponin/CKMB CK-MB (CK-2) 0.6 ng/mL (0-6.6) 09/20/20 10:23 Troponin I 0.038 ng/mL (< 0.028) H 09/20/20 16:36 - Assessment/Plan Assessment/Plan: 1. COVID PNA 2. MADYSON 3. Dig Toxicity 4. Anemia 5. Chronic AF Continue current meds. Recheck H/H in AM. May need to hold Eliquis if continues to decrease.
[2020-10-01] MEDS ORDERED: Acetaminophen/Codeine 30-300mg Tablet PO PRN (14:06)
--- NOTE | 2020-10-01 17:51 | EKG ---
Test Reason : AMS Blood Pressure : / mmHG Vent. Rate : 103 BPM Atrial Rate : 166 BPM P-R Int : 000 ms QRS Dur : 078 ms QT Int : 318 ms P-R-T Axes : 000 -04 -83 degrees QTc Int : 416 ms Atrial fibrillation with rapid ventricular response Nonspecific ST and T wave abnormality Abnormal ECG Confirmed by NADEEN Enamorado, AMY ([id number]), photography editor CARLA BLANTON ([id number]) on 10/01/2020 5:50:51 PM Referred By: Confirmed By:AMY SENIOR M.D.
[2020-10-02] MEDS: Latanoprost 0.005% Ophth Soln 2.5 ml Bottle EA EYE SCH ×2 (02:08→21:25)
[2020-10-02 05:10] LABS: #Basophils 0.2 thou/uL (0.0-0.2); #Eosinphils 0.3 thou/uL (0.0-0.7); #Lymphocytes 2.3 thou/uL (1.20-3.40); #Monocytes 0.6 thou/uL (0.11-0.59); #Neutrophils 9.9 thou/uL (1.40-6.50); %Basophils 1.1 % (0.0-1.0); %Eosinophils 1.9 % (0.0-10.0); %Lymphocytes 17.6 % (21.0-51.0); %Monocytes 4.6 % (0.0-10.0); %Neutrophils 74.7 % (42.0-75.0); Hemoglobin 8.8 g/dL (12.0-16.0); Mean Corpuscular HGB CONC 32.8 g/dL (32.0-36.0); Mean Corpuscular Hemoglobin 29.7 pg (27.0-31.0); Mean Corpuscular Volume 90.6 fL (78.0-98.0); Mean Platelet Volume 10.5 fL (7.4-10.4); Platelet Count 214 thou/uL (130-400); RBC Distribution Width 15.1 % (11.5-14.5); Red Blood Cell (RBC) Count 2.97 mill/uL (4.20-5.40); White Blood Cell (WBC) Count 13.2 thou/uL (4.8-10.8)
[2020-10-02 05:29] LABS: Anion Gap 11 mmol/L (10-20); BUN (Urea Nitrogen) 39 mg/dL (9.8-20.1); Calc. Creatinine Clearance 16 mL/min (70-130); Carbon Dioxide 27 mmol/L (23-31); Chloride 106 mmol/L (98-107); Glucose 118 mg/dL (83-110); Potassium 3.5 mmol/L (3.5-5.1); Sodium 140 mmol/L (136-145)
[2020-10-02] MEDS: Albuterol 200 PUFF (6.7GM INHALER) INH SCH ×4 (05:38→18:27)
[2020-10-02] MEDS: Dextrose 5% in Water 1,000 ML IV SCH ×2 (05:39→05:40)
[2020-10-02] MEDS: Amlodipine 5 MG TAB PO SCH (08:15)
[2020-10-02] MEDS: Aspirin 81 mg Enteric Coated Tablet PO SCH (08:15)
[2020-10-02] MEDS: Cyanocobalamin (Vitamin B-12) 1,000 MCG TAB PO SCH (08:16)
[2020-10-02] MEDS: Ascorbic Acid 500 mg Chewable Tablet PO SCH (08:16)
[2020-10-02] MEDS: Folic Acid 1 MG TAB PO SCH (08:16)
[2020-10-02] MEDS: Magnesium Oxide 400 MG TAB PO SCH (08:16)
[2020-10-02] MEDS: Cholecalciferol 1,000 UNITS (25 MCG) TAB PO SCH (08:16)
[2020-10-02] MEDS: Vitamin E 400 UNITS CAP PO SCH (08:16)
[2020-10-02] MEDS: Zinc Sulfate 220 MG CAP PO SCH (08:16)
[2020-10-02] MEDS: Polyethylene Glycol 3350 17 GM Packet PO SCH (08:17)
[2020-10-02] MEDS: Apixaban 2.5 MG TAB PO SCH ×2 (08:23→21:19)
[2020-10-02] MEDS: Dextrose 5 %-0.45 % NaCl 1,000 ML IV SCH (09:06)
--- NOTE | 2020-10-02 11:56 | PDOC.HOSPP ---
- Subjective Encounter Date: 10/02/20 (f/u covid) Encounter Time: 11:54 Subjective: No overnight events - RN notes that pt is more talkative today. On my exam, when asked how she is feeling, pt states 'not worth a dime'. She is unable to explain it any further,only to say that her body 'feels terrible'. soon after pt falls asleep. - Objective Vital Signs & Weight: Vital Signs (12 hours) Temp Pulse Resp BP Pulse Ox 10/02/20 11:45 98.0 F 101 H 20 150/65 H 92 L 10/02/20 08:15 92 10/02/20 08:00 97.6 F 92 18 139/66 92 L 10/02/20 04:00 97.5 F L 83 18 126/61 95 10/02/20 00:00 97.7 F 82 18 133/75 98 Weight Admit Weight 91 lb 4.8 oz Weight 83 lb I&O: 10/01/20 10/02/20 10/03/20 06:59 06:59 06:59 Intake Total 60 465 Output Total 900 350 Balance -840 115 Result Diagrams: 10/02/20 04:33 10/02/20 04:33 EKG Reviewed by me: Yes (tele - a fib 90's) Hospitalist ROS - Medication Medications: Active Medications Generic Name Dose Route Start Last Admin Trade Name Freq PRN Reason Stop Dose Admin Acetaminophen 650 mg 09/20/20 14:16 09/23/20 23:44 Acetaminophen 325 Mg Tab PO 650 mg Q4H PRN Administration Headache/Fever/Mild Pain (1-3) Acetaminophen 650 mg 09/20/20 14:16 09/20/20 18:19 Acetaminophen 650 Mg Suppository [place] 650 mg Q4H PRN Administration Headache/Fever/Mild Pain (1-3) Albuterol Sulfate 2 puff 09/20/20 18:30 10/02/20 05:39 Albuterol 200 Puff (6.7gm Inhaler) INH 2 puff TID-RT CHANDNI Administration Amlodipine Besylate 5 mg 09/24/20 09:00 10/02/20 08:15 Amlodipine 5 Mg Tab PO 5 mg DAILY CHANDNI Administration Apixaban 2.5 mg 09/23/20 09:00 10/02/20 08:23 Apixaban 2.5 Mg Tab PO 2.5 mg BID CHANDNI Administration Ascorbic Acid 1,000 mg 09/22/20 09:00 10/02/20 08:16 Ascorbic Acid 500 Mg Chewable Tablet PO 1,000 mg DAILY CHANDNI Administration Aspirin 81 mg 09/22/20 09:00 10/02/20 08:15 Aspirin 81 Mg Enteric Coated Tablet PO 81 mg DAILY CHANDNI Administration Cholecalciferol 1,000 units 09/22/20 09:00 10/02/20 08:16 Cholecalciferol 1,000 Units (25 Mcg) Tab PO 1,000 units DAILY CHANDNI Administration Cyanocobalamin 1,000 mcg 09/22/20 09:00 10/02/20 08:16 Cyanocobalamin (Vitamin B-12) 1,000 Mcg Tab PO 1,000 mcg DAILY CHANDNI Administration Folic Acid 1 mg 09/22/20 09:00 10/02/20 08:16 Folic Acid 1 Mg Tab PO 1 mg DAILY CHANDNI Administration Dextrose/Sodium Chloride 1,000 mls @ 50 mls/hr 10/02/20 06:30 10/02/20 09:06 D5 1/2 Ns IV 1,000 mls .Q20H CHANDNI Administration Latanoprost 1 drop 09/21/20 21:00 10/02/20 02:08 Latanoprost 0.005% Ophth Soln 2.5 Ml Bottle EA EYE 1 drop HS CHANDNI Administration Magnesium Oxide 400 mg 09/22/20 09:00 10/02/20 08:16 Magnesium Oxide 400 Mg Tab PO 400 mg DAILY CHANDNI Administration Pantoprazole Sodium 40 mg 09/22/20 09:00 10/02/20 08:16 Pantoprazole 40 Mg Tab PO 40 mg DAILY CHANDNI Administration Polyethylene Glycol 17 gm 09/21/20 09:00 10/02/20 08:17 Polyethylene Glycol 3350 17 Gm Packet PO Not Given DAILY CHANDNI Sodium Chloride 10 ml 09/20/20 14:16 09/27/20 07:48 Flush - Normal Saline 10 Ml Syringe IVF 10 ml PRN PRN Administration Saline Flush Vitamin E 400 units 09/22/20 09:00 10/02/20 08:16 Vitamin E 400 Units Cap PO 400 units DAILY CHANDNI Administration Zinc Sulfate 220 mg 09/22/20 09:00 10/02/20 08:16 Zinc Sulfate 220 Mg Cap PO 220 mg DAILY CHANDNI Administration Hospitalist Exam Vitals: Vital Signs (12 hours) Temp Pulse Resp BP Pulse Ox 10/02/20 11:45 98.0 F 101 H 20 150/65 H 92 L 10/02/20 08:15 92 10/02/20 08:00 97.6 F 92 18 139/66 92 L 10/02/20 04:00 97.5 F L 83 18 126/61 95 10/02/20 00:00 97.7 F 82 18 133/75 98 Weight Admit Weight 91 lb 4.8 oz Weight 83 lb General Appearance: NAD General - other findings: not oriented Heart: irregular, III/IV Heart - other findings: murmur unchanged Respiratory: no wheezes, no rales, no ronchi Gastrointestinal: soft, non-tender, non-distended, normal bowel sounds Extremities: no cyanosis, no clubbing, no edema Psychiatric - other findings: easily falls asleep Hosp A/P (1) COVID-19 Code(s): U07.1 - COVID-19 Status: Acute (2) Dementia Code(s): F03.90 - UNSPECIFIED DEMENTIA WITHOUT BEHAVIORAL DISTURBANCE Status: Chronic Qualifiers: Dementia type: Alzheimer's (3) Paroxysmal atrial fibrillation Code(s): I48.0 - PAROXYSMAL ATRIAL FIBRILLATION Status: Chronic (4) Hypernatremia Code(s): E87.0 - HYPEROSMOLALITY AND HYPERNATREMIA Status: Resolved (5) Anemia Code(s): D64.9 - ANEMIA, UNSPECIFIED Status: Chronic (6) Acute on chronic heart failure Code(s): I50.9 - HEART FAILURE, UNSPECIFIED Status: Acute Qualifiers: Heart failure type: unspecified Qualified Code(s): I50.9 - Heart failure, unspecified (7) NALINI (acute kidney injury) Code(s): N17.9 - ACUTE KIDNEY FAILURE, UNSPECIFIED Status: Acute (8) Leukocytosis Code(s): D72.829 - ELEVATED WHITE BLOOD CELL COUNT, UNSPECIFIED Status: Acute Qualifiers: Leukocytosis type: unspecified Qualified Code(s): D72.829 - Elevated white blood cell count, unspecified - Plan Discussed the goal of care with the patient's daughter yesterday - that the mary ent return to [place] with hospice care and be able to see her who is currently in skilled care there. Will continue current tx. Given the heart failure and need for diuresis during hospitalization, then the NALINI and hypernatremia, D5W was continued. Today the hypernatremia is resolved - change IVF to D5 1/2 NS. COVID - asx NALINI -improved, renally adjust meds Hypernatremia/Hyperchloremia - resolvede Elevated digoxin level - resolved Anemia - worsening, no gross bleeding, stable. Contniue eliquis for now as it is in alignment with the goals of care Leukocytosis - uncertain etiology - no signs of new infection, will monitor. dvt prophy - on eliquis for stroke risk reduction with a fib gi prophy - on ppi code status DNR Pt is ready for transfer when arrangements are made.
--- NOTE | 2020-10-02 15:09 | PDOC.CPN ---
- Subjective Date: 10/02/20 Time: 14:20 Interval history: Patient now with RVR. BP elevated slightly. Renal function slowly improves. - Review of Systems General: reports: fatigue Respiratory: reports: cough, congestion Cardiovascular: denies: chest pain, palpitation, edema, paroxysmal nocturnal dyspnea, orthopnea Gastrointestinal: denies: nausea, vomiting, diarrhea, constipation, abd pain, GI bleeding Musculoskeletal: denies: pain, tenderness, stiffness, swelling, arthritis/arthralgias Neurological: reports: weakness - Objective Allergies/Adverse Reactions: Allergies Allergy/AdvReac Type Severity Reaction Status Date / Time cephalexin Allergy Verified 08/07/20 20:53 erythromycin base Allergy Verified 08/07/20 20:53 Penicillins Allergy Verified 08/07/20 20:53 Sulfa (Sulfonamide Allergy Verified 08/07/20 20:53 Antibiotics) levofloxacin [From Levaquin] AdvReac Severe Verified 09/20/20 17:16 Visit Medications: Current Medications Acetaminophen (Acetaminophen 325 Mg Tab) 650 mg PO Q4H PRN PRN Reason: Headache/Fever/Mild Pain (1-3) Last Admin: 09/23/20 23:44 Dose: 650 mg Documented by: Acetaminophen (Acetaminophen 650 Mg Suppository) 650 mg MS Q4H PRN PRN Reason: Headache/Fever/Mild Pain (1-3) Last Admin: 09/20/20 18:19 Dose: 650 mg Documented by: Acetaminophen/Codeine Phosphate (Acetaminophen/Codeine 30-300mg Tablet) 1 tab PO Q4H PRN PRN Reason: Pain 4-10 Albuterol Sulfate (Albuterol 200 Puff (6.7gm Inhaler)) 2 puff INH TID-RT [facility] Last Admin: 10/02/20 05:39 Dose: 2 puff Documented by: Alprazolam (Alprazolam 0.25 Mg Tab) 0.25 mg PO BID PRN PRN Reason: Anxiety Apixaban (Apixaban 2.5 Mg Tab) 2.5 mg PO BID [facility] Last Admin: 10/02/20 08:23 Dose: 2.5 mg Documented by: Ascorbic Acid (Ascorbic Acid 500 Mg Chewable Tablet) 1,000 mg PO DAILY [facility] Last Admin: 10/02/20 08:16 Dose: 1,000 mg Documented by: Aspirin (Aspirin 81 Mg Enteric Coated Tablet) 81 mg PO DAILY [facility] Last Admin: 10/02/20 08:15 Dose: 81 mg Documented by: Cholecalciferol (Cholecalciferol 1,000 Units (25 Mcg) Tab) 1,000 units PO DAILY [facility] Last Admin: 10/02/20 08:16 Dose: 1,000 units Documented by: Cyanocobalamin (Cyanocobalamin (Vitamin B-12) 1,000 Mcg Tab) 1,000 mcg PO DAILY [facility] Last Admin: 10/02/20 08:16 Dose: 1,000 mcg Documented by: Diltiazem HCl (Diltiazem Hcl Sr 60 Mg Capsule) 60 mg PO TID [facility] Folic Acid (Folic Acid 1 Mg Tab) 1 mg PO DAILY [facility] Last Admin: 10/02/20 08:16 Dose: 1 mg Documented by: Dextrose/Sodium Chloride (D5 1/2 Ns) 1,000 mls @ 50 mls/hr IV .Q20H [facility] Last Admin: 10/02/20 09:06 Dose: 1,000 mls Documented by: Latanoprost (Latanoprost 0.005% Ophth Soln 2.5 Ml Bottle) 1 drop EA EYE HS [facility] Last Admin: 10/02/20 02:08 Dose: 1 drop Documented by: Magnesium Oxide (Magnesium Oxide 400 Mg Tab) 400 mg PO DAILY [facility] Last Admin: 10/02/20 08:16 Dose: 400 mg Documented by: Pantoprazole Sodium (Pantoprazole 40 Mg Tab) 40 mg PO DAILY [facility] Last Admin: 10/02/20 08:16 Dose: 40 mg Documented by: Polyethylene Glycol (Polyethylene Glycol 3350 17 Gm Packet) 17 gm PO DAILY [facility] Last Admin: 10/02/20 08:17 Dose: Not Given Documented by: Sodium Chloride (Flush - Normal Saline 10 Ml Syringe) 10 ml IVF PRN PRN PRN Reason: Saline Flush Last Admin: 09/27/20 07:48 Dose: 10 ml Documented by: Tramadol HCl (Tramadol Hcl 50 Mg Tab) 50 mg PO BID PRN PRN Reason: Pain Vitamin E (Vitamin E 400 Units Cap) 400 units PO DAILY [facility] Last Admin: 10/02/20 08:16 Dose: 400 units Documented by: Zinc Sulfate (Zinc Sulfate 220 Mg Cap) 220 mg PO DAILY [facility] Last Admin: 10/02/20 08:16 Dose: 220 mg Documented by: Vital Signs & Weight: Vital Signs Temp Pulse Resp BP Pulse Ox 10/02/20 11:45 98.0 F 101 H 20 150/65 H 92 L 10/02/20 08:15 92 10/02/20 08:00 97.6 F 92 18 139/66 92 L 10/02/20 04:00 97.5 F L 83 18 126/61 95 Admit Weight 91 lb 4.8 oz Weight 83 lb - Labs Result Diagrams: 10/02/20 04:33 10/02/20 04:33 Troponin/CKMB CK-MB (CK-2) 0.6 ng/mL (0-6.6) 09/20/20 10:23 Troponin I 0.038 ng/mL (< 0.028) H 09/20/20 16:36 - Assessment/Plan Assessment/Plan: 1. COVID PNA 2. MADYSON 3. Dig Toxicity 4. Anemia 5. Chronic AF 6. HTN Will stop Norvasc. Add cardizem low dosage. Continue monitoring H/H.
[2020-10-02] MEDS: Diltiazem HCl SR 60 mg Capsule PO SCH ×2 (16:32→21:19)
[2020-10-03] MEDS: Dextrose 5 %-0.45 % NaCl 1,000 ML IV SCH ×2 (02:58→22:00)
[2020-10-03] MEDS: Albuterol 200 PUFF (6.7GM INHALER) INH SCH ×4 (06:33→21:00)
[2020-10-03] MEDS: Ascorbic Acid 500 mg Chewable Tablet PO SCH ×2 (07:29→07:30)
[2020-10-03] MEDS: Aspirin 81 mg Enteric Coated Tablet PO SCH (07:30)
[2020-10-03] MEDS: Folic Acid 1 MG TAB PO SCH (07:30)
[2020-10-03] MEDS: Vitamin E 400 UNITS CAP PO SCH (07:30)
[2020-10-03] MEDS: Magnesium Oxide 400 MG TAB PO SCH (07:30)
[2020-10-03] MEDS: Cyanocobalamin (Vitamin B-12) 1,000 MCG TAB PO SCH (07:30)
[2020-10-03] MEDS: Diltiazem HCl SR 60 mg Capsule PO SCH ×3 (07:31→21:50)
[2020-10-03] MEDS: Polyethylene Glycol 3350 17 GM Packet PO SCH (07:31)
[2020-10-03] MEDS: Cholecalciferol 1,000 UNITS (25 MCG) TAB PO SCH (07:31)
[2020-10-03] MEDS: Apixaban 2.5 MG TAB PO SCH ×2 (07:31→21:08)
[2020-10-03] MEDS: Zinc Sulfate 220 MG CAP PO SCH (07:31)
--- NOTE | 2020-10-03 10:36 | PDOC.HOSPP ---
- Subjective Encounter Date: 10/03/20 Encounter Time: 10:34 Subjective: alert, talkative. feels bad "all over" - Objective Vital Signs & Weight: Vital Signs (12 hours) Temp Pulse Resp BP Pulse Ox 10/03/20 07:50 98.0 F 89 19 134/63 93 L 10/03/20 03:36 96.8 F L 76 20 148/65 H 97 10/03/20 03:04 93 L Weight Admit Weight 91 lb 4.8 oz Weight 83 lb I&O: 10/02/20 10/03/20 10/04/20 06:59 06:59 06:59 Intake Total 465 Output Total 350 450 Balance 115 -450 Result Diagrams: 10/02/20 04:33 10/02/20 04:33 Hospitalist ROS - Medication Medications: Active Medications Generic Name Dose Route Start Last Admin Trade Name Freq PRN Reason Stop Dose Admin Acetaminophen 650 mg 09/20/20 14:16 09/23/20 23:44 Acetaminophen 325 Mg Tab PO 650 mg Q4H PRN Administration Headache/Fever/Mild Pain (1-3) Acetaminophen 650 mg 09/20/20 14:16 09/20/20 18:19 Acetaminophen 650 Mg Suppository MD 650 mg Q4H PRN Administration Headache/Fever/Mild Pain (1-3) Albuterol Sulfate 2 puff 09/20/20 18:30 10/03/20 06:34 Albuterol 200 Puff (6.7gm Inhaler) INH 2 puff TID-RT [facility] Administration Apixaban 2.5 mg 09/23/20 09:00 10/03/20 07:31 Apixaban 2.5 Mg Tab PO 2.5 mg BID [facility] Administration Ascorbic Acid 1,000 mg 09/22/20 09:00 10/03/20 07:30 Ascorbic Acid 500 Mg Chewable Tablet PO 1,000 mg DAILY [facility] Administration Aspirin 81 mg 09/22/20 09:00 10/03/20 07:30 Aspirin 81 Mg Enteric Coated Tablet PO 81 mg DAILY [facility] Administration Cholecalciferol 1,000 units 09/22/20 09:00 10/03/20 07:31 Cholecalciferol 1,000 Units (25 Mcg) Tab PO 1,000 units DAILY [facility] Administration Cyanocobalamin 1,000 mcg 09/22/20 09:00 10/03/20 07:30 Cyanocobalamin (Vitamin B-12) 1,000 Mcg Tab PO 1,000 mcg DAILY [facility] Administration Diltiazem HCl 60 mg 10/02/20 15:00 10/03/20 07:31 Diltiazem Hcl Sr 60 Mg Capsule PO 60 mg TID [facility] Administration Folic Acid 1 mg 09/22/20 09:00 10/03/20 07:30 Folic Acid 1 Mg Tab PO 1 mg DAILY [facility] Administration Dextrose/Sodium Chloride 1,000 mls @ 50 mls/hr 10/02/20 06:30 10/03/20 02:58 D5 1/2 Ns IV 1,000 mls .Q20H [facility] Administration Latanoprost 1 drop 09/21/20 21:00 10/02/20 21:25 Latanoprost 0.005% Ophth Soln 2.5 Ml Bottle EA EYE 1 drop HS [facility] Administration Magnesium Oxide 400 mg 09/22/20 09:00 10/03/20 07:30 Magnesium Oxide 400 Mg Tab PO 400 mg DAILY [facility] Administration Pantoprazole Sodium 40 mg 09/22/20 09:00 10/03/20 07:30 Pantoprazole 40 Mg Tab PO 40 mg DAILY [facility] Administration Polyethylene Glycol 17 gm 09/21/20 09:00 10/03/20 07:31 Polyethylene Glycol 3350 17 Gm Packet PO Not Given DAILY [facility] Sodium Chloride 10 ml 09/20/20 14:16 09/27/20 07:48 Flush - Normal Saline 10 Ml Syringe IVF 10 ml PRN PRN Administration Saline Flush Vitamin E 400 units 09/22/20 09:00 10/03/20 07:30 Vitamin E 400 Units Cap PO 400 units DAILY [facility] Administration Zinc Sulfate 220 mg 09/22/20 09:00 10/03/20 07:31 Zinc Sulfate 220 Mg Cap PO 220 mg DAILY [facility] Administration Hospitalist Exam Vitals: Vital Signs (12 hours) Temp Pulse Resp BP Pulse Ox 10/03/20 07:50 98.0 F 89 19 134/63 93 L 10/03/20 03:36 96.8 F L 76 20 148/65 H 97 10/03/20 03:04 93 L Weight Admit Weight 91 lb 4.8 oz Weight 83 lb General Appearance: awake alert Neck: no JVD Heart: RRR, no murmur Respiratory - other findings: fine rales, mild, diffuse Gastrointestinal: soft, non-tender, non-distended, normal bowel sounds Extremities: no edema Hosp A/P (1) Acute kidney failure Status: Acute Qualifiers: Acute renal failure type: with acute tubular necrosis Qualified Code(s): N17.0 - Acute kidney failure with tubular necrosis (2) COVID-19 Code(s): U07.1 - COVID-19 Status: Acute (3) Dementia Code(s): F03.90 - UNSPECIFIED DEMENTIA WITHOUT BEHAVIORAL DISTURBANCE Status: Chronic Qualifiers: Dementia type: Alzheimer's (4) Paroxysmal atrial fibrillation Code(s): I48.0 - PAROXYSMAL ATRIAL FIBRILLATION Status: Chronic (5) Hypernatremia Code(s): E87.0 - HYPEROSMOLALITY AND HYPERNATREMIA Status: Resolved (6) PNA (pneumonia) Code(s): J18.9 - PNEUMONIA, UNSPECIFIED ORGANISM Status: Acute Qualifiers: Pneumonia type: due to Pneumococcus Laterality: left Lung location: lower lobe of lung Qualified Code(s): J13 - Pneumonia due to Streptococcus pneumoniae - Plan cont amlodipine, eliquis placement pending
[2020-10-03] MEDS: Latanoprost 0.005% Ophth Soln 2.5 ml Bottle EA EYE SCH (20:42)
[2020-10-03] MEDS: traMADol HCl 50 MG TAB PO PRN (20:57)
[2020-10-03] MEDS: ALPRAZolam 0.25 MG TAB PO PRN (20:59)
[2020-10-04] MEDS: Albuterol 200 PUFF (6.7GM INHALER) INH SCH ×3 (06:04→18:16)
[2020-10-04] MEDS: Cyanocobalamin (Vitamin B-12) 1,000 MCG TAB PO SCH (10:27)
[2020-10-04] MEDS: Aspirin 81 mg Enteric Coated Tablet PO SCH (10:28)
[2020-10-04] MEDS: Folic Acid 1 MG TAB PO SCH (10:28)
[2020-10-04] MEDS: Cholecalciferol 1,000 UNITS (25 MCG) TAB PO SCH (10:28)
[2020-10-04] MEDS: Magnesium Oxide 400 MG TAB PO SCH (10:28)
[2020-10-04] MEDS: Vitamin E 400 UNITS CAP PO SCH (10:28)
[2020-10-04] MEDS: Diltiazem HCl SR 60 mg Capsule PO SCH ×3 (10:29→20:35)
[2020-10-04] MEDS: Zinc Sulfate 220 MG CAP PO SCH (10:29)
[2020-10-04] MEDS: Apixaban 2.5 MG TAB PO SCH ×2 (10:29→20:35)
[2020-10-04] MEDS: Polyethylene Glycol 3350 17 GM Packet PO SCH (10:30)
[2020-10-04] MEDS: Ascorbic Acid 500 mg Chewable Tablet PO SCH (10:30)
--- NOTE | 2020-10-04 11:38 | PDOC.HOSPP ---
- Subjective Encounter Date: 10/04/20 Encounter Time: 11:36 Subjective: pleasantly demented - Objective Vital Signs & Weight: Vital Signs (12 hours) Temp Pulse Resp BP Pulse Ox 10/04/20 08:19 97.5 F L 73 20 110/53 L 100 10/04/20 03:57 98.0 F 75 14 103/53 L 94 L 10/04/20 00:00 97.4 F L 87 17 158/74 H 93 L Weight Admit Weight 91 lb 4.8 oz Weight 83 lb 6.4 oz I&O: 10/03/20 10/04/20 10/05/20 06:59 06:59 06:59 Output Total 450 Balance -450 Result Diagrams: 10/02/20 04:33 10/02/20 04:33 Hospitalist ROS - Medication Medications: Active Medications Generic Name Dose Route Start Last Admin Trade Name Freq PRN Reason Stop Dose Admin Acetaminophen 650 mg 09/20/20 14:16 09/23/20 23:44 Acetaminophen 325 Mg Tab PO 650 mg Q4H PRN Administration Headache/Fever/Mild Pain (1-3) Acetaminophen 650 mg 09/20/20 14:16 09/20/20 18:19 Acetaminophen 650 Mg Suppository MT 650 mg Q4H PRN Administration Headache/Fever/Mild Pain (1-3) Albuterol Sulfate 2 puff 09/20/20 18:30 10/04/20 06:04 Albuterol 200 Puff (6.7gm Inhaler) INH 2 puff TID-RT [facility] Administration Alprazolam 0.25 mg 10/01/20 14:07 10/03/20 20:59 Alprazolam 0.25 Mg Tab PO 0.25 mg BID PRN Administration Anxiety Apixaban 2.5 mg 09/23/20 09:00 10/04/20 10:29 Apixaban 2.5 Mg Tab PO 2.5 mg BID [facility] Administration Ascorbic Acid 1,000 mg 09/22/20 09:00 10/04/20 10:30 Ascorbic Acid 500 Mg Chewable Tablet PO 1,000 mg DAILY [facility] Administration Aspirin 81 mg 09/22/20 09:00 10/04/20 10:28 Aspirin 81 Mg Enteric Coated Tablet PO 81 mg DAILY [facility] Administration Cholecalciferol 1,000 units 09/22/20 09:00 10/04/20 10:28 Cholecalciferol 1,000 Units (25 Mcg) Tab PO 1,000 units DAILY [facility] Administration Cyanocobalamin 1,000 mcg 09/22/20 09:00 10/04/20 10:27 Cyanocobalamin (Vitamin B-12) 1,000 Mcg Tab PO 1,000 mcg DAILY [facility] Administration Diltiazem HCl 60 mg 10/02/20 15:00 10/04/20 10:29 Diltiazem Hcl Sr 60 Mg Capsule PO 60 mg TID [facility] Administration Folic Acid 1 mg 09/22/20 09:00 10/04/20 10:28 Folic Acid 1 Mg Tab PO 1 mg DAILY [facility] Administration Dextrose/Sodium Chloride 1,000 mls @ 50 mls/hr 10/02/20 06:30 10/03/20 22:00 D5 1/2 Ns IV 1,000 mls .Q20H [facility] Administration Latanoprost 1 drop 09/21/20 21:00 10/03/20 20:42 Latanoprost 0.005% Ophth Soln 2.5 Ml Bottle EA EYE 1 drop HS [facility] Administration Magnesium Oxide 400 mg 09/22/20 09:00 10/04/20 10:28 Magnesium Oxide 400 Mg Tab PO 400 mg DAILY [facility] Administration Pantoprazole Sodium 40 mg 09/22/20 09:00 10/04/20 10:28 Pantoprazole 40 Mg Tab PO 40 mg DAILY [facility] Administration Polyethylene Glycol 17 gm 09/21/20 09:00 10/04/20 10:30 Polyethylene Glycol 3350 17 Gm Packet PO 17 gm DAILY [facility] Administration Sodium Chloride 10 ml 09/20/20 14:16 09/27/20 07:48 Flush - Normal Saline 10 Ml Syringe IVF 10 ml PRN PRN Administration Saline Flush Tramadol HCl 50 mg 10/01/20 12:36 10/03/20 20:57 Tramadol Hcl 50 Mg Tab PO 50 mg BID PRN Administration Pain Vitamin E 400 units 09/22/20 09:00 10/04/20 10:28 Vitamin E 400 Units Cap PO 400 units DAILY [facility] Administration Zinc Sulfate 220 mg 09/22/20 09:00 10/04/20 10:29 Zinc Sulfate 220 Mg Cap PO 220 mg DAILY [facility] Administration Hospitalist Exam Vitals: Vital Signs (12 hours) Temp Pulse Resp BP Pulse Ox 10/04/20 08:19 97.5 F L 73 20 110/53 L 100 10/04/20 03:57 98.0 F 75 14 103/53 L 94 L 10/04/20 00:00 97.4 F L 87 17 158/74 H 93 L Weight Admit Weight 91 lb 4.8 oz Weight 83 lb 6.4 oz General Appearance: awake alert Neck: no JVD Heart: RRR, no murmur Respiratory: CTAB Gastrointestinal: soft, normal bowel sounds Extremities: no edema Hosp A/P (1) Acute kidney failure Status: Acute Qualifiers: Acute renal failure type: with acute tubular necrosis Qualified Code(s): N17.0 - Acute kidney failure with tubular necrosis (2) COVID-19 Code(s): U07.1 - COVID-19 Status: Acute (3) Dementia Code(s): F03.90 - UNSPECIFIED DEMENTIA WITHOUT BEHAVIORAL DISTURBANCE Status: Chronic Qualifiers: Dementia type: Alzheimer's (4) Paroxysmal atrial fibrillation Code(s): I48.0 - PAROXYSMAL ATRIAL FIBRILLATION Status: Chronic (5) Hypernatremia Code(s): E87.0 - HYPEROSMOLALITY AND HYPERNATREMIA Status: Resolved (6) PNA (pneumonia) Code(s): J18.9 - PNEUMONIA, UNSPECIFIED ORGANISM Status: Acute Qualifiers: Pneumonia type: due to Pneumococcus Laterality: left Lung location: lower lobe of lung Qualified Code(s): J13 - Pneumonia due to Streptococcus p neumoniae - Plan cont amlodipine, eliquis check BMP for ressolution ATN placement pending
[2020-10-04 12:40] LABS: Anion Gap 12 mmol/L (10-20); BUN (Urea Nitrogen) 35 mg/dL (9.8-20.1); Calc. Creatinine Clearance 13 mL/min (70-130); Carbon Dioxide 27 mmol/L (23-31); Chloride 107 mmol/L (98-107); Glucose 150 mg/dL (83-110); Potassium 3.7 mmol/L (3.5-5.1); Sodium 142 mmol/L (136-145)
[2020-10-04] MEDS: Dextrose 5 %-0.45 % NaCl 1,000 ML IV SCH (18:21)
[2020-10-04] MEDS: Latanoprost 0.005% Ophth Soln 2.5 ml Bottle EA EYE SCH (20:34)
[2020-10-04] MEDS: ALPRAZolam 0.25 MG TAB PO PRN (20:35)
[2020-10-05] MEDS: traMADol HCl 50 MG TAB PO PRN (02:59)
[2020-10-05] MEDS: Aspirin 81 mg Enteric Coated Tablet PO SCH (09:29)
[2020-10-05] MEDS: Cholecalciferol 1,000 UNITS (25 MCG) TAB PO SCH (09:30)
[2020-10-05] MEDS: Zinc Sulfate 220 MG CAP PO SCH (09:30)
[2020-10-05] MEDS: Folic Acid 1 MG TAB PO SCH (09:30)
[2020-10-05] MEDS: Ascorbic Acid 500 mg Chewable Tablet PO SCH (09:30)
[2020-10-05] MEDS: Cyanocobalamin (Vitamin B-12) 1,000 MCG TAB PO SCH (09:30)
[2020-10-05] MEDS: Diltiazem HCl SR 60 mg Capsule PO SCH (09:30)
[2020-10-05 09:47] VITALS: BP 147/56; TEMP 97.9
[2020-10-05] MEDS: Magnesium Oxide 400 MG TAB PO SCH (10:48)
[2020-10-05] MEDS: Polyethylene Glycol 3350 17 GM Packet PO SCH (10:48)
[2020-10-05] MEDS: Albuterol 200 PUFF (6.7GM INHALER) INH SCH (10:49)
[2020-10-05] MEDS: Vitamin E 400 UNITS CAP PO SCH (10:49)
[2020-10-05] MEDS: Apixaban 2.5 MG TAB PO SCH (10:49)
[2020-10-05 11:39] VITALS: BMI 16.2
--- NOTE | 2020-10-06 07:02 | DIS ---
DATE OF ADMISSION: 09/21/2020 DATE OF DISCHARGE: 10/05/2020 PRIMARY CARE PROVIDER: None. DISPOSITION: Discharged to [facility] for hospice care. FINAL DIAGNOSES: Acute renal failure; COVID-19 virus infection; hypernatremia; pneumonia, right lower lobe; acute metabolic encephalopathy; acute urinary retention; acute on chronic heart failure; anemia; paroxysmal atrial fibrillation. DISCHARGE MEDICATIONS: 1. Eliquis 2.5 mg twice a day. 2. Albuterol 2 puffs t.i.d. p.r.n. 3. Aspirin 81 mg a day. 4. Cardizem 60 mg p.o. t.i.d. 5. Folic acid 1 mg a day. ALLERGIES: CEPHALEXIN, ERYTHROMYCIN, PENICILLIN, SULFA, AND LEVOTHYROXINE. CODE STATUS: DNAR. DIET: As tolerated. Basically at risk with crushed medicines. HOSPITAL COURSE: Admitted to the hospital through the [facility] on 09/20/2020 with right lower lobe pneumonia and effusion, started on vancomycin and Levaquin. She did have an allergic reaction to the Levaquin, this was discontinued and she was started on meropenem. Pertinent that she received her 2nd dose of COVID vaccine the day before. During her hospital stay, she had the following consultations; Dr. Cole Negron, Pulmonology; Dr. Adebayo Edmondson, Cardiology. Hospitalizations, none. On admission, her CTA of the chest, no evidence of pulmonary embolism. Bilateral pleural effusions, right greater than left. On admission, her sodium was 135, BUN 22, glucose 128. Comprehensive metabolic profile otherwise normal. D-dimer was 1.82. White count was 12.9, hemoglobin 10.8, and platelet count was 99,000. Blood cultures were drawn, which were negative eventually. Dr. Negron consulted, he recommended Cardiology consultation. She was SARS positive, put in isolation. Dr. Adebayo Edmondson recommended adding spironolactone, continuing other medicines. Considered her heart failure was diastolic, chronic, she was started on anticoagulation. On 09/25/2020, the patient developed urinary retention, required a Rodriguez catheter. At that time, her laboratory; white count was 14.1, hemoglobin 10.8, platelet count was 129,000. Creatinine 2.91, BUN 63, sodium 145, potassium 4.0. The patient at that time was considered to be in acute renal failure secondary to COVID infection. On 09/30, she was somewhat more communicative, continued to have poor oral intake, was on mild IV fluids. The situation had been addressed with the family, and they were agreeable with hospice as it was considered this patient would not improve. Palliative Care was called. On 10/01/2020, the patient only verbalized "hi." Heart had irregular rhythm. No wheezes. Nontender. Continued discussion with the patient's family, the patient to go to [place] with hospice care. She has been improved. She is going to hospice today at [place]. Currently, blood pressure is 147/56, pulse ox is 99 on room air. The patient's most current laboratory 10/04/2020; lytes are balanced. BUN 35, creatinine 1.69. On 10/02, her white count was 13.2, hemoglobin 8.8, and platelet count was 214. As mentioned earlier, she was SARS positive. Prognosis is poor. She is being discharged to [facility] for continuing care under hospice. She will of course need oxygen there. Job ID: [id number]
== END 2020-10-05 11:45 | disposition hospice, inpatient (51) | DRG 177 ==
LOC: ERS 09:44 → ERHOLD 11:50 → 2SW 15:49 → OBSVTOIN 09-21 11:11
PROVIDERS: ADMIT Internal Medicine; ATTEND Internal Medicine
DX: U07.1 COVID-19 (principal); J12.82 Pneumonia due to coronavirus disease 2019; G93.41 Metabolic encephalopathy; I50.33 Acute on chronic diastolic (congestive) heart failure; Z66 Do not resuscitate; E44.0 Moderate protein-calorie malnutrition; N17.9 Acute kidney failure, unspecified; N13.30 Unspecified hydronephrosis; F02.81 Dementia in other diseases classified elsewhere, unspecified severity, with behavioral disturbance; E87.0 Hyperosmolality and hypernatremia; I48.91 Unspecified atrial fibrillation; I11.0 Hypertensive heart disease with heart failure; E03.9 Hypothyroidism, unspecified; G30.9 Alzheimer's disease, unspecified; R29.6 Repeated falls; R77.8 Other specified abnormalities of plasma proteins; I48.0 Paroxysmal atrial fibrillation; F41.9 Anxiety disorder, unspecified; F32.9 Major depressive disorder, single episode, unspecified; R33.8 Other retention of urine; I45.5 Other specified heart block; T46.0X5A Adverse effect of cardiac-stimulant glycosides and drugs of similar action, initial encounter; E87.8 Other disorders of electrolyte and fluid balance, not elsewhere classified; H40.9 Unspecified glaucoma; D64.9 Anemia, unspecified; T36.8X5A Adverse effect of other systemic antibiotics, initial encounter; Z68.1 Body mass index [BMI] 19.9 or less, adult; Z88.1 Allergy status to other antibiotic agents; Z88.0 Allergy status to penicillin; Z88.2 Allergy status to sulfonamides; Z88.8 Allergy status to other drugs, medicaments and biological substances; Z79.01 Long term (current) use of anticoagulants; Z79.899 Other long term (current) drug therapy; Z90.710 Acquired absence of both cervix and uterus
CPT/HCPCS: 0240U; 36415; 51701; 70450; 71045; 71275; 76770; 80048; 80053; 80162; 81003; 81015; 82553; 83605; 83735; 83880; 84100; 84443; 84484; 85025; 85379; 86140; 87040; 93005; 96365; 96375; 96376; G0378; J1940; J1956; J2185; J3370; J3475; J3480; J7050; J7070; Q9967